=== PATIENT | male | born 1945 | race Caucasian/White ===

== ENCOUNTER → 2019-03-02 10:41 | Outpatient (CLI) | payer MEDICARE, SELFPAY ==
[2018-01-25 14:08] VITALS: BMI 33.0
[2019-03-02 12:39] LABS: Hematocrit 40.8 % (40-54); Hemoglobin 13.5 g/dL (13.0-16.5); Mean Corp Hgb Conc 33.1 g/dL (32-36); Mean Corpuscular Hgb 30.3 pg (27.0-32.0); Mean Corpuscular Volume 91.5 fL (80-94); Platelet Count 183 K/mm3 (150-450); RBC Distribution Width CV 12.6 % (11.6-14.6); RBC Distribution Width SD 41.1 fl (35.1-43.9); Red Blood Count 4.46 M/mm3 (4.6-6.2); White Blood Count 5.8 K/mm3 (4.4-11.0)
[2019-03-02 12:59] LABS: Microalbumin,Random Urine 97.9 mg/L (NO RANGE EST.); Microalbumin:Creatinine Ratio 74.7 mg/g CRE (<30 mg/g CRE)
[2019-03-02 13:22] LABS: ALB/GLOB Ratio 1.2 RATIO (0.9-2.4); AST(SGOT) 33 U/L (15-37); Alanine Aminotransfer ALT/SGPT 56 U/L (16-61); Alkaline Phosphatase 61 U/L (45-117); Anion Gap 7 (5-15); BUN 25 mg/dL (7-18); BUN/Creat Ratio 27.4 RATIO (10-20); Chloride 107 mmol/L (98-107); Cholesterol 241 mg/dL (200); Creatinine, Serum 0.91 mg/dL (0.70-1.30); EST Glomerular Filtration Rate 86 mL/min (>60); Est Glom Filt Rate - Afr Amer 104 mL/min (>60); Ferritin 150 ng/mL (26-388); Globulin 3.4 g/dL (2.2-4.2); Glucose 187 mg/dL (74-106); High Density Lipoprotein 52 mg/dL; Iron 71 ug/dL (65-175); Iron Binding Capacity,Total 334 ug/dL (250-450); PERCENT IRON SATURATION 21.3 % (15.0-55.0); Potassium 4.5 mmol/L (3.5-5.1); Protein, Total 7.4 g/dL (6.4-8.2); Sodium Level 138 mmol/L (136-145); Triglycerides 169 mg/dL; Very Low Density Lipoprotein 34 mg/dL (5-40)
== END ==
PROVIDERS: PCP Family Medicine; Referring Provider Family Medicine; Visit Provider Family Medicine
DX: E11.9 Type 2 diabetes mellitus without complications (principal); Z83.49 Family history of other endocrine, nutritional and metabolic diseases
CPT/HCPCS: 36415; 80053; 80061; 82043; 82570; 82728; 83540; 83550; 85027

== ENCOUNTER → 2019-06-07 12:33 | Outpatient (CLI) | payer MEDICARE, SELFPAY ==
[2018-01-25 14:08] VITALS: BMI 33.0
--- NOTE | 2019-06-07 12:38 | RAD_ITS ---
STUDY: X-RAY - PELVIS AND LEFT HIP REASON FOR EXAM: Male, 74 years old. Left hip pain TECHNIQUE: 3 views of the pelvis and hip. COMPARISON: None. FINDINGS: Moderate amount of fecal material is seen in the rectosigmoid colon. Normal visualized soft tissue structures. Normal bilateral iliac wings, sacroiliac joints and visualized sacrum. Normal bilateral superior and inferior pubic rami. Normal pubic symphysis. Normal bilateral ischial tuberosities. The patient is status post bilateral hip replacement. There is good alignment. Degenerative changes in the lower lumbar spine. RAD/HIP, UNI W/ Pelvis 2-3 Views IMPRESSION: Bilateral hip replacement. There is good alignment. Degenerative changes in the lower lumbar spine. Electronically Signed: Josiah Peralta, at 13:11 EDT , Service support ,
== END ==
PROVIDERS: PCP Family Medicine; Referring Provider Family Medicine; Visit Provider Family Medicine
DX: M25.552 Pain in left hip (principal)
CPT/HCPCS: 73502

== ENCOUNTER → 2019-10-22 10:06 | Outpatient (CLI) | payer MEDICARE, SELFPAY ==
[2018-01-25 14:08] VITALS: BMI 33.0
--- NOTE | 2019-10-22 10:12 | RAD_ITS ---
STUDY: X-RAY CHEST REASON FOR EXAM: Male, 74 years old. CHRONIC COUGH TECHNIQUE: Frontal and lateral views COMPARISON: None. FINDINGS: The lungs are not fully expanded. There is no demonstrated pleural abnormality. Normal size heart. Normal mediastinum and siddhartha. Normal visualized pulmonary arteries. Normal visualized aortic arch and descending thoracic aorta. Degenerative changes of the thoracic spine. Normal visualized ribs, clavicles, and shoulders. There is no demonstrated abnormality of the visualized soft tissue structures of the upper abdomen. RAD/Chest PA and Lateral IMPRESSION: Normal x-ray examination of the chest. Electronically Signed: Pa Brennan DO at 23:00 EDT Tel [phone], Service support ,
[2019-10-22 12:13] LABS: Absolute Lymphocyte Count 1.42 X10^3/uL (0.83-4.51); Absolute Neutrophil Count 2.8 X10^3/uL (2.0-7.7); Basophil# 0.06 X10^3/uL; Basophil% 1.1 % (0-1); Eosinophil# 0.29 X10^3/uL; Eosinophils% 5.4 % (0-5); Hematocrit 42.7 % (40-54); Hemoglobin 14.5 g/dL (13.0-16.5); Lymphocyte # 1.42 X10^3/ul (4.0); Lymphocyte % 26.4 % (19-41); Mean Corpuscular Hgb 31.9 pg (27.0-32.0); Mean Corpuscular Volume 94.1 fL (80-94); Mean Platelet Vol. 10.8 fl (6.2-12.0); Monocyte# 0.76 X10^3/uL; Monocyte% 14.1 % (0-10); NRBC Flagged by Analyzer 0 % (0-5); Neutrophil # 2.83 X10^3/uL (2.7-7.7); Neutrophil % 52.6 % (47-70); Platelet Count 170 K/mm3 (150-450); RBC Distribution Width CV 12.4 % (11.6-14.6); RBC Distribution Width SD 42.9 fl (35.1-43.9); Red Blood Count 4.54 M/mm3 (4.6-6.2); White Blood Count 5.4 K/mm3 (4.4-11.0)
[2019-10-22 12:44] LABS: Hemoglobin A1c 7.8 % (3.8-5.6)
[2019-10-22 12:55] LABS: ALB/GLOB Ratio 1.1 RATIO (0.9-2.4); AST(SGOT) 32 U/L (15-37); Alanine Aminotransfer ALT/SGPT 48 U/L (16-61); Alkaline Phosphatase 63 U/L (45-117); Anion Gap 7 (5-15); BUN 24 mg/dL (7-18); BUN/Creat Ratio 23.1 RATIO (10-20); Chloride 107 mmol/L (98-107); Cholesterol 263 mg/dL (200); Creatinine, Serum 1.04 mg/dL (0.70-1.30); EST Glomerular Filtration Rate 74 mL/min (>60); Est Glom Filt Rate - Afr Amer 89 mL/min (>60); Globulin 3.8 g/dL (2.2-4.2); Glucose 178 mg/dL (74-106); High Density Lipoprotein 54 mg/dL; Potassium 4.3 mmol/L (3.5-5.1); Protein, Total 7.8 g/dL (6.4-8.2); Sodium Level 138 mmol/L (136-145); Triglycerides 219 mg/dL; Very Low Density Lipoprotein 44 mg/dL (5-40)
[2019-10-22 13:08] LABS: Microalbumin:Creatinine Ratio 118.8 mg/g CRE (<30 mg/g CRE)
== END ==
PROVIDERS: PCP Family Medicine; Referring Provider Family Medicine; Visit Provider Family Medicine
DX: R05 Cough (principal); E11.65 Type 2 diabetes mellitus with hyperglycemia
CPT/HCPCS: 36415; 71046; 80053; 80061; 82043; 82570; 83036; 85025

== ENCOUNTER → 2019-11-08 06:48 | Outpatient (CLI) | payer MEDICARE, SELFPAY ==
[2018-01-25 14:08] VITALS: BMI 33.0
--- NOTE | 2019-11-08 15:53 | PFTCOMP_ITS ---
COMPLETE PULMONARY FUNCTION TEST INTERPRETATION Brief HPI: Patient is a 74 year old male, currently under the care of Dr. Ochoa, who presents to [facility] for complete pulmonary function tests secondary to diagnosis of cough. Respiratory therapist reports good effort and reproducible results. Interpretation: Forced expiration spirometry shows no large airways obstructive ventilatory defect with an FEV1 of 117% predicted. There is no significant bronchodilator response by strict ATS criteria. Spirograms are of good quality and plateau normally. The respiratory flow volume loop shows a normal pattern. Lung volumes by body plethysmography show an elevated total lung capacity at 10.68 L, 173% predicted. FRC and RV are elevated out of proportion. Lung volume measurements are consistent with hyperinflation and air-trapping. Diffusion capacity by carbon monoxide is normal at 98% predicted. The airway resistance is normal. No previous pulmonary function tests were available for review. Impression: Grossly normal pulmonary function test except for air trapping with hyperinflation. Could consider evaluation for asthma in the right clinical scenario with a bronchoprovocation study.
== END ==
PROVIDERS: PCP Family Medicine; Referring Provider Family Medicine; Visit Provider Family Medicine
DX: R05 Cough (principal)
CPT/HCPCS: 94060; 94726; 94729

== ENCOUNTER → 2020-03-11 09:47 | Outpatient (CLI) | payer MEDICARE, SELFPAY ==
[2018-01-25 14:08] VITALS: BMI 33.0
[2020-03-11 10:01] LABS: Mucous, Urine 0 SEEN /hpf (<or=2+)
[2020-03-11 12:21] LABS: Hematocrit 44.5 % (40-54); Hemoglobin 14.9 g/dL (13.0-16.5); Mean Corp Hgb Conc 33.5 g/dL (32-36); Mean Corpuscular Hgb 30.4 pg (27.0-32.0); Mean Corpuscular Volume 90.8 fL (80-94); Mean Platelet Vol. 10.9 fl (6.2-12.0); Platelet Count 200 K/mm3 (150-450); RBC Distribution Width CV 12.3 % (11.6-14.6); RBC Distribution Width SD 40.9 fl (35.1-43.9); White Blood Count 6.3 K/mm3 (4.4-11.0)
[2020-03-11 12:34] LABS: Color, Urine Yellow (Yellow); Glucose, Dipstick Normal (Normal); Ketone-Dipstick 5 mg/dl (Negative); Leukocyte Esterase-Dipstick 25 /ul (Negative); Nitrite-Dipstick Negative (Negative); Occult Blood-Urine 250 /ul (Negative); Protein-Dipstick 30 mg/dl (Negative); Urine Bilirubin Dipstick Negative (Negative); Urine Clarity Sl. Cloudy (Clear); Urine Urobilinogen Normal (Normal)
[2020-03-11 12:40] LABS: Bacteria 1+ /hpf (None Seen); Red Blood Cells-Urine 25-50 SEEN /hpf (0-5); Squamous Epithelial Cells - UA 0-5 SEEN /hpf (0-5); White Blood Cells 0-5 SEEN /hpf (0-5)
[2020-03-11 12:49] LABS: ALB/GLOB Ratio 1.1 RATIO (0.9-2.4); AST(SGOT) 116 U/L (15-37); Alanine Aminotransfer ALT/SGPT 70 U/L (16-61); Albumin, Serum 3.9 g/dL (3.2-5.0); Alkaline Phosphatase 64 U/L (45-117); Anion Gap 7 (5-15); BUN 19 mg/dL (7-18); BUN/Creat Ratio 22.2 RATIO (10-20); Calcium,Total 8.9 mg/dL (8.5-10.1); Chloride 107 mmol/L (98-107); Creatinine, Serum 0.86 mg/dL (0.70-1.30); EST Glomerular Filtration Rate 92 mL/min (>60); Est Glom Filt Rate - Afr Amer 112 mL/min (>60); Globulin 3.6 g/dL (2.2-4.2); Glucose 146 mg/dL (74-106); Potassium 4.1 mmol/L (3.5-5.1); Protein, Total 7.5 g/dL (6.4-8.2); Sodium Level 137 mmol/L (136-145)
== END ==
PROVIDERS: PCP Family Medicine; Referring Provider Family Medicine; Visit Provider Family Medicine
DX: R31.9 Hematuria, unspecified (principal)
CPT/HCPCS: 36415; 80053; 81001; 84153; 85027; 87086

== ENCOUNTER → 2020-03-25 | Outpatient (CLI) | payer MEDICARE, SELFPAY ==
[2018-01-25 14:08] VITALS: BMI 33.0
--- NOTE | 2020-03-25 11:30 | PROSB_PTH ---
PATIENT: TALON NUNES LOC: [facility] U#:[id number] AGE/SX: 75/M ROOM: RE03/25/[address]: Dr. Damián Dobbins MD : 1945 BED: DIS: 03/25/2020 SPEC #: [id number] RECD: 03/25/20 12:52 STATUS: ZOHRA RESun #: [id number] CHAZ: 03/25/20 11:[address]: Damián Dobbins DEPT: SURGICAL PATHOLOGY RECD BY: Sana Horn ENTERED: 03/25/20 12:53 SP TYPE: PROST BX OTHR DR: Dr. Manpreet Ochoa MD Tissues: Prostate, NOS Procedures: Surgery Specimen Level IV HEADER OPERATION: Prostate biopsy PRE-OP DIAGNOSIS: R97.20, N40.3 TISSUE SUBMITTED: Prostate biopsy MICROSCOPIC DIAGNOSIS Prostate, core biopsy: Adenocarcinoma. [place] grade: 10 (5+5) Cores involved: 2 out of 2 cores Tissue involved: 80% Greatest tumor length: 6 mm Perineural invasion: Present AM:antione 03/26/2020 COMMENT Case has been reviewed in consultation with Dr. Brown who concurs with the above diagnosis. IDC:SJ MICROSCOPIC DESCRIPTION Slides are reviewed. GROSS DESCRIPTION Received in fixative is one container labeled with the patient's name and designated prostate. The specimen consists of two elongated fragments of light cummings-white soft tissue each measuring 1.5 cm in length and 0.1 cm in diameter. The specimen is totally submitted in one cassette. / AM:antione 03/25/20 TC:0 CPT: 21837
== END | disposition home or self-care (01) ==
LOC: LABSPEC 12:27
PROVIDERS: PCP Family Medicine; Referring Provider Urology; Visit Provider Urology
DX: C61 Malignant neoplasm of prostate (principal); N40.3 Nodular prostate with lower urinary tract symptoms
CPT/HCPCS: 88305

== ENCOUNTER → 2020-04-04 16:30 | Outpatient (CLI) | payer MEDICARE, SELFPAY ==
[2018-01-25 14:08] VITALS: BMI 33.0
--- NOTE | 2020-04-04 16:55 | CT_ITS ---
STUDY: CT ABDOMEN AND PELVIS WITH CONTRAST REASON FOR EXAM: Male, 75 years old. Prostate cancer evaluation/staging RADIATION DOSAGE (If Supplied By Facility): CTDIvol = ( 22.93 ) mGy, DLP = ( 1692.41 ) mGycm TECHNIQUE: CT images were obtained from the dome of the diaphragm to the symphysis pubis without oral contrast. IV 100mL Isovue-300 was administered. Sagittal and coronal images were reconstructed. Individualized dose optimization techniques were used for this CT. COMPARISON: None. FINDINGS: There are multiple bilateral subcentimeter round solid pulmonary metastases. There are no pleural effusions. Coronary arteries are severely diseased. Left ventricle is mildly dilated. Abdominal solid organs are normal. Gallbladder is normal and there is no biliary dilation. There is no hydronephrosis or urinary calculi. There is no intestinal obstruction. There is sigmoid diverticulosis without diverticulitis. Lower pelvis is suboptimally visualized due to metallic artifact from bilateral hip replacements. Bladder is probably normal. There is no abdominal or retroperitoneal lymphadenopathy. There are no skeletal blastic lesions. There is multilevel spinal degeneration with severe thecal sac stenosis at L2-L3, moderate at L3-L4 L4-L5. Lateral recesses and foramina are stenotic at multiple levels. CT/Abdomen/Pelvis W IV Cont ONLY IMPRESSION: 1. Multiple pulmonary metastases. Refer to complete CT chest for more definitive evaluation. 2. No abdominal disseminated malignancy. 3. No abdominal lymphadenopathy. 4. No osseous blastic metastases. 5. Severe coronary artery disease. Electronically Signed: Nandini Charles MD at 17:21 EST Tel , Service support ,
== END ==
PROVIDERS: PCP Family Medicine; Referring Provider Urology; Visit Provider Urology
DX: C61 Malignant neoplasm of prostate (principal)
CPT/HCPCS: 74177; Q9967; A4216

== ENCOUNTER → 2020-04-07 08:55 | Outpatient (CLI) | payer MEDICARE, SELFPAY ==
[2018-01-25 14:08] VITALS: BMI 33.0
--- NOTE | 2020-04-07 09:00 | NM_ITS ---
CLINICAL: 75-year-old male with reported history of carcinoma of the prostate. WHOLE BODY 99m Tc MDP RADIONUCLIDE BONE SCINTIGRAPHY COMPARISON: CT of the abdomen-pelvis report 04/04/2020 FINDINGS: Following the intravenous administration of 26.8 mCi of 99m Tc MDP, whole body bone images reveal: 1. Increased radiopharmaceutical concentration is defined in the right temporomandibular joint, glenohumeral compartments of both shoulders, sternoclavicular compartment of the right shoulder, mid cervical spine posteriorly on the left, fifth thoracic vertebra posteriorly on the right, second-fifth lumbar vertebra, bilateral posterior sacrum, wrists bilaterally, the right hand, bilateral knees. 2. The remaining skeletal structures are scintigraphically unremarkable with normal-appearing renal images and urinary bladder activity identified. An increase in tracer distribution appears evident in the bilateral mandible and maxilla and interorbital aspect of the calvarium most consistent with periostitis. Bilateral hip arthroplasties appear scintigraphically unremarkable. NM/Bone Scan Whole Body IMPRESSION: 1. The increase in radiopharmaceutical concentration identified in the right and left shoulder articulations, bilateral wrists, right hand, cervical, thoracic and lumbar spine, bilateral knees, the sacrum is most consistent with degenerative arthritis. 2. There is no definitive typical scintigraphic evidence of diffuse axial skeletal metastatic disease on the current examination. Electronically Signed: Yimi Rodriguez DO at 22:03 EST Tel , Service support ,
== END ==
PROVIDERS: PCP Family Medicine; Referring Provider Urology; Visit Provider Urology
DX: C61 Malignant neoplasm of prostate (principal)
CPT/HCPCS: 78306

== ENCOUNTER → 2020-04-15 07:57 | Outpatient (CLI) | payer MEDICARE, SELFPAY ==
[2018-01-25 14:08] VITALS: BMI 33.0
--- NOTE | 2020-04-15 07:58 | CT_ITS ---
STUDY: CT CHEST WITHOUT CONTRAST REASON FOR EXAM: Male, 75 years old. MALIGNANT NEOPLASM OF PROSTATE RADIATION DOSAGE (If Supplied By Facility): CTDIvol = ( 20.00 ) mGy, DLP = ( 764.64 ) mGycm TECHNIQUE: Transaxial imaging was performed without the administration of intravenous contrast material. Multiplanar coronal and sagittal images were reformatted. Individualized dose optimization techniques were used for this CT. COMPARISON: None. FINDINGS: There are numerous bilateral lung nodules scattered throughout the lung raya, largest seen within the left upper lobe near the apex and measuring 2.0 x 1.1 cm, measured on image 42, series 4. There is mild right lower lobe and minimal posterior dependent atelectasis. Otherwise lung raya are clear. There is no demonstrated pleural abnormality. Normal cardiac size with coronary artery calcifications. There are multiple enlarged lymph nodes within the mediastinum, largest seen at the aortopulmonary window and measuring 2.0 x 1.9 cm. Normal hilar regions. Normal unenhanced pulmonary arteries. There is atherosclerotic calcification of the aortic arch with tortuosity and elongation of the aortic arch and descending thoracic aorta. There are multi-level degenerative changes of the thoracic spine. There is no demonstrated abnormality of the visualized upper abdomen. CT/Chest without Contrast IMPRESSION: Multiple bilateral pulmonary nodules as described above and most compatible with metastatic disease in the context of known neoplasm. Mediastinal lymphadenopathy as described, likely metastatic in the clinical context. No pleural effusion or pneumothorax. Electronically Signed: Tiesha Musa MD at 0:53 EST , Service support ,
== END ==
PROVIDERS: PCP Family Medicine; Referring Provider Urology; Visit Provider Urology
DX: C61 Malignant neoplasm of prostate (principal)
CPT/HCPCS: 71250

== ENCOUNTER → 2020-04-30 16:22 | Outpatient (CLI) | payer MEDICARE, SELFPAY ==
[2018-01-25 14:08] VITALS: BMI 33.0
[2020-04-30 17:43] LABS: Platelet Count 186 K/mm3 (150-450)
[2020-04-30 18:10] LABS: International Normalized Ratio 1.1; Prothrombin Time (Protime)PT. 13.2 SECONDS (11.7-14.9)
[2020-04-30 18:11] LABS: Partial Thromboplast Time 27.8 Seconds (24.1-36.2)
== END ==
PROVIDERS: PCP Family Medicine; Referring Provider Urology; Visit Provider Urology
DX: Z01.812 Encounter for preprocedural laboratory examination (principal)
CPT/HCPCS: 36415; 85049; 85610; 85730

== ENCOUNTER → 2020-05-02 08:06 | Outpatient (CLI) | payer MEDICARE, SELFPAY ==
[2018-01-25 14:08] VITALS: BMI 33.0
[2020-05-02] VITALS (10 sets, daily range): BP systolic 129–165; BP diastolic 57–77; PULSE 55–62; RESP 13–20; TEMP 36.5; O2SAT 92–96; BMI 33.2
--- NOTE | 2020-05-02 | IMM_PTH ---
PATIENT: TALON NUNES LOC: CT U#:[id number] AGE/SX: 79/M ROOM: RE05/02/[address]: Dr. Damián Dobbins MD : 1945 BED: DIS: SPEC #: [id number] RECD: 05/05/20 13:50 STATUS: ZOHRA REQ #: [id number] CHAZ: 05/02/20 00:[address]: Damián Dobbins DEPT: IMMUNOHISTOCHEMISTRY RECD BY: Juli Ureña ENTERED: 05/05/20 13:52 SP TYPE: IMMUNO OTHR DR: Dr. Manpreet Ochoa MD Tissues: Lung, NOS Procedures: RCC (add) NAPSIN A (add) CK20 (add) CK5-6 (add) CK7 (add) CK8 (add) HEP PAR (add) TTF1 (add) Pankeratin (initial) P40 (add) PSAP (add) PHYSICIAN & INSTITUTION [address] [address] SPECIMEN INFORMATION: Tissue Source: Left lung mass Clinical Info: Left lung mass Specimen Number: [id number] CPT code: 09477, 35234 x10 METHODOLOGY: Deparaffinized sections of prefer/formalin-fixed tissue or PAP/DQ stained slides are incubated with monoclonal/polyclonal antibodies/oligonucleotide probes. Localization is made via biotin free immunoperoxidase method. Appropriate controls are performed and reacted as expected. Results on target cell population are indicated in the following table: RESULTS: ANTIBODY / CLONE RESULT AE1-3 (AE1/AE3/PCK26) positive CK7 (OV-TL12/30) negative CK8 (71pbxqX49) positive CK20 (KS20.8) negative TTF-1 (8G7G3/1) negative Napsin A (Rabbit Polyclonal) negative HepPar (OCh1E5) negative RCC (PN-15) negative PSAP (PASE/4LJ) positive CK5-6 (D5 & 1684) negative P40 (BC28) negative These tests were developed and their performance characteristics determined by [facility]. They may not have been cleared or approved by the U.S. Food and Drug Administration. The FDA has determined that such clearance or approval is not necessary. The above immunohistochemical/dualISH markers are ordered and reviewed by the Pathologist. INTERPRETATION: Left lung mass, CT-guided core biopsy: Metastatic adenocarcinoma consistent with prostate primary. SJ:antione 05/06/2020
--- NOTE | 2020-05-02 08:15 | CT_ITS ---
PROCEDURE: CT GUIDED CORE NEEDLE BIOPSY OF A left upper lobe LUNG LESION INDICATION: Male, 75 years old. NODULE PHYSICIAN: Dr. HOLLI Cleaning CONSENT: Written informed consent was obtained having explained the risks, benefits and alternatives in detail with the patient who accepted the risks and agreed to proceed. Laboratory review and clinical assessment was performed. CONSCIOUS SEDATION PROTOCOL: The Drugs used were: 2 mg Versed, IV., and 50 mcg Fentanyl, IV. The sedation time was: 27 minutes. Conscious sedation was started at 9:05 AM and terminated at 9:32 AM. The conscious sedation protocol was independently monitored. RADIATION DOSAGE (If Supplied By Facility): CTDIvol = ( 25 ) mGy, DLP = ( 905.95 ) mGycm Individualized dose optimization techniques were used for this CT. TECHNIQUE: The patient was placed in the supine position. A noncontrast CT was performed to localize the lesion in the left upper lobe . The skin surface was prepped and draped in a sterile fashion. 1% lidocaine was used for local anesthesia. Using CT guidance, a 20-gauge coaxial biopsy device was advanced to the periphery of the lesion. A total of 4 core specimens were obtained. The specimens were placed in a formalin solution. A post procedure CT demonstrated no adverse sequelae or pneumothorax. The patient tolerated the procedure well without adverse event. A negative biopsy does not exclude malignancy. Further imaging or clinical followup based on patient condition and degree of clinical suspicion for malignancy. Suggest rebiopsy, if biopsy results do not match with clinical scenario. CT/Biopsy/Inj or Needle Placement IMPRESSION: 1. CT directed core needle biopsy of the left upper lobe pulmonary nodule using CT image guidance with image documentation as described. Pathology results are pending. 2. Conscious Sedation protocol utilized with independent monitoring. Electronically Signed: Josiah Peralta MD at 10:44 EDT , Service support ,
[2020-05-02] MEDS: Midazolam 2 MG/2 ML Syringe IV (09:04)
[2020-05-02] MEDS: fentaNYL 100 MCG/2 ML Ampul IV (09:05)
--- NOTE | 2020-05-02 09:30 | ASPIGT_PTH ---
PATIENT: TALON NUNES LOC: CT U#:[id number] AGE/SX: 79/M ROOM: RE05/02/[address]: Dr. Damián Dobbins MD : 1945 BED: DIS: SPEC #: [id number] RECD: 05/02/20 09:50 STATUS: ZOHRA RESun #: [id number] CHAZ: 05/02/20 09:[address]: Damián Dobbins DEPT: SURGICAL PATHOLOGY RECD BY: Sana Horn ENTERED: 05/02/20 09:51 SP TYPE: ASP RAD OTHR DR: Dr. Manpreet Ochoa MD Tissues: Lung, NOS Procedures: FNA Specimen Adequacy Special Stain Group II Surgery Specimen Level IV Imprint (control) HEADER OPERATION: Left lung mass, Ct-guided core biopsy PRE-OP DIAGNOSIS: Left lung mass TISSUE SUBMITTED: Left lung mass 20-gauge core MICROSCOPIC DIAGNOSIS Left lung mass, CT-guided core biopsy: Metastatic adenocarcinoma, consistent with prostate primary. See comment. NORMAN:antione 05/05/2020 COMMENT The specimen is evaluated at the time of biopsy by Dr. Brown. Immediate Evaluation = Atypical cells suspicious for non-small cell carcinoma noted. Immunohistochemistry ([id number]) supports the above diagnosis. Molecular studies on the tumor can be performed if clinically indicated. Please notify the laboratory if they are needed. Please make reference to previous specimen ([id number]) prostate, core biopsy with diagnosis of adenocarcinoma. Case has been reviewed in consultation with Dr. Powers who concurs with the above diagnosis. IDC:AM MICROSCOPIC DESCRIPTION Slides are reviewed. GROSS DESCRIPTION Received in fixative is one container labeled with the patient's name and designated left lung CT-guided core biopsy. The specimen consists of multiple elongated fragments of cummings soft tissue that in aggregate measure 1 x 0.1 x 0.1 cm. The specimen is totally submitted in one cassette. Three touch imprints are prepared at the time of core biopsy. / NORMAN:antione 05/02/20 TC:0 CPT: 94155, 26756
--- NOTE | 2020-05-02 09:45 | RAD_ITS ---
STUDY: X-RAY CHEST REASON FOR EXAM: Male, 75 years old. POST BIOPSY -- immediately post lung biopsy TECHNIQUE: AP inspiration and expiration views. COMPARISON: Comparison is made with prior examination of 10/22/2019. FINDINGS: EKG electrodes are seen. Immediate post left lung biopsy. No evidence of pneumothorax. Left upper lobe pulmonary nodule. RAD/Chest Insp/Exp 2 View IMPRESSION: No evidence of pneumothorax on the immediate post left lung biopsy radiographs. Electronically Signed: Josiah Peralta MD at 10:46 EDT , Service support ,
--- NOTE | 2020-05-02 11:50 | RAD_ITS ---
STUDY: X-RAY CHEST REASON FOR EXAM: Male, 75 years old. 2 HRS POST BIOPSY -- 2 hours post lung biopsy TECHNIQUE: AP inspiration and expiration views. COMPARISON: Comparison is made with prior examination done earlier today. FINDINGS: No evidence of pneumothorax on the two-hour delayed post left lung biopsy radiographs. RAD/Chest Insp/Exp 2 View IMPRESSION: No evidence of pneumothorax on the two-hour delayed post left lung biopsy radiographs. Electronically Signed: Josiah Peralta MD at 12:46 EDT , Service support ,
== END ==
PROVIDERS: PCP Family Medicine; Referring Provider Urology; Visit Provider Urology
DX: C78.02 Secondary malignant neoplasm of left lung (principal)
CPT/HCPCS: 32408; 71046; 77012; 88172; 88305; 88313; 88341; 88342; 99155; 99156; J7040; A4216

== ENCOUNTER → 2020-07-23 14:17 | Outpatient (CLI) | payer MEDICARE, SELFPAY ==
[2020-05-02 08:30] VITALS: BMI 33.2
[2020-07-23 15:55] LABS: PSA,Total- Diagnostic 6.14 ng/mL (0.0-4.0)
== END ==
PROVIDERS: PCP Family Medicine; Referring Provider Urology; Visit Provider Urology
DX: C61 Malignant neoplasm of prostate (principal)
CPT/HCPCS: 36415; 84153

== ENCOUNTER → 2020-09-09 10:06 | Outpatient (CLI) | payer MEDICARE, SELFPAY ==
[2020-05-02 08:30] VITALS: BMI 33.2
[2020-09-09 12:11] LABS: ALB/GLOB Ratio 1.1 RATIO (0.9-2.4); AST(SGOT) 29 U/L (15-37); Alanine Aminotransfer ALT/SGPT 44 U/L (16-61); Alkaline Phosphatase 64 U/L (45-117); Anion Gap 6 (5-15); BUN 21 mg/dL (7-18); BUN/Creat Ratio 21.4 RATIO (10-20); Calcium,Total 9.2 mg/dL (8.5-10.1); Chloride 104 mmol/L (98-107); Cholesterol 285 mg/dL (200); Creatinine, Serum 0.98 mg/dL (0.70-1.30); EST Glomerular Filtration Rate 78 mL/min (>60); Est Glom Filt Rate - Afr Amer 95 mL/min (>60); Globulin 3.8 g/dL (2.2-4.2); Glucose 179 mg/dL (74-106); High Density Lipoprotein 68 mg/dL; Potassium 4.6 mmol/L (3.5-5.1); Protein, Total 7.8 g/dL (6.4-8.2); Sodium Level 136 mmol/L (136-145); Triglycerides 226 mg/dL; Very Low Density Lipoprotein 45 mg/dL (5-40)
[2020-09-09 13:05] LABS: Microalbumin,Random Urine 77.1 mg/L (NO RANGE EST.); Microalbumin:Creatinine Ratio 72.7 mg/g CRE (<30 mg/g CRE)
[2020-09-09 14:03] LABS: Hemoglobin A1c 8.3 % (3.8-5.6)
== END ==
PROVIDERS: PCP Family Medicine; Referring Provider Family Medicine; Visit Provider Family Medicine
DX: E11.65 Type 2 diabetes mellitus with hyperglycemia (principal)
CPT/HCPCS: 36415; 80053; 80061; 82043; 82570; 83036

== ENCOUNTER → 2020-10-23 12:58 | Outpatient (CLI) | payer MEDICARE, SELFPAY ==
--- NOTE | 2020-10-23 13:03 | RAD_ITS ---
STUDY: X-RAY CHEST REASON FOR EXAM: Male, 75 years old. Chest pain/pressure TECHNIQUE: 2 PA and lateral views of the chest. COMPARISON: 05/02/2020 FINDINGS: Stable elevation of the right hemidiaphragm The lungs are clear and expanded. There is no demonstrated pleural abnormality. Normal size heart. Normal mediastinum and siddhartha. Normal visualized pulmonary arteries. Normal visualized aortic arch and descending thoracic aorta. There are diffuse degenerative changes of the visualized thoracic spine. Normal visualized ribs, clavicles, and shoulders. There is no demonstrated abnormality of the visualized soft tissue structures of the upper abdomen. RAD/Chest PA and Lateral IMPRESSION: No acute pulmonary process, no interval change Electronically Signed: George Gallardo MD at 17:02 EDT , Service support ,
[2020-10-23 15:11] LABS: PSA,Total- Diagnostic 1.08 ng/mL (0.0-4.0)
== END ==
PROVIDERS: PCP Family Medicine; Visit Provider Nurse Practitioner Adult Health
DX: R91.8 Other nonspecific abnormal finding of lung field (principal); C61 Malignant neoplasm of prostate
CPT/HCPCS: 36415; 71046; 84153

== ENCOUNTER → 2020-12-10 12:29 | Outpatient (CLI) | payer MEDICARE, SELFPAY ==
[2020-12-10 15:37] LABS: Anion Gap 8 (5-15); BUN 26 mg/dL (7-18); Calcium,Total 9.2 mg/dL (8.5-10.1); Chloride 103 mmol/L (98-107); Cholesterol 257 mg/dL (200); EST Glomerular Filtration Rate 77 mL/min (>60); Est Glom Filt Rate - Afr Amer 93 mL/min (>60); Glucose 199 mg/dL (74-106); High Density Lipoprotein 59 mg/dL; Potassium 4.6 mmol/L (3.5-5.1); Sodium Level 136 mmol/L (136-145); Triglycerides 264 mg/dL; Very Low Density Lipoprotein 53 mg/dL (5-40)
[2020-12-10 16:04] LABS: Hemoglobin A1c 9.4 % (3.8-5.6)
== END ==
PROVIDERS: PCP Nurse Practitioner Family; Referring Provider Nurse Practitioner Family; Visit Provider Nurse Practitioner Family
DX: E11.65 Type 2 diabetes mellitus with hyperglycemia (principal); E78.5 Hyperlipidemia, unspecified
CPT/HCPCS: 36415; 80048; 80061; 83036

== ENCOUNTER → 2021-02-03 09:55 | Outpatient (CLI) | payer MEDICARE, SELFPAY ==
[2021-02-03 11:09] LABS: PSA,Total- Diagnostic 1.54 ng/mL (0.0-4.0)
== END ==
PROVIDERS: PCP Nurse Practitioner Family; Referring Provider Urology; Visit Provider Urology
DX: C61 Malignant neoplasm of prostate (principal)
CPT/HCPCS: 36415; 84153

== ENCOUNTER 2021-03-11 12:13 | Outpatient (CLI) | payer MEDICARE, SELFPAY ==
--- NOTE | 2021-03-11 12:16 | RAD_ITS ---
STUDY: XR Chest 2 Views 03/11/2021 12:23 PM REASON FOR EXAM: Male, 76 years old. CHEST PAIN SHORTNESS OF BREATH COMPARISON: 10/23/2020 TECHNIQUE: XR Chest 2 Views FINDINGS: There is no demonstrated pleural abnormality. Normal heart size. Normal mediastinum. Normal siddhartha. Prominent appearing increased interstitial lung markings. Normal visualized pulmonary arteries. There is atherosclerotic calcification of the aortic arch with tortuosity. There are diffuse degenerative changes of the visualized thoracic spine. There is degenerative osteoarthritis of the bilateral shoulders. There is no demonstrated abnormality of the visualized soft tissue structures of the upper abdomen. RAD/Chest PA and Lateral IMPRESSION: There are no acute findings. Electronically Signed: Israel Newsome MD at 19:41 EST ,
[2021-03-11 15:26] LABS: Hemoglobin 14.6 g/dL (13.0-16.5); Mean Corp Hgb Conc 35.6 g/dL (32-36); Mean Corpuscular Hgb 31.5 pg (27.0-32.0); Mean Corpuscular Volume 88.4 fL (80-94); Mean Platelet Vol. 11.1 fl (6.2-12.0); Platelet Count 249 K/mm3 (150-450); RBC Distribution Width CV 12.2 % (11.6-14.6); Red Blood Count 4.64 M/mm3 (4.6-6.2); White Blood Count 8.6 K/mm3 (4.4-11.0)
[2021-03-11 15:52] LABS: Anion Gap 10 (5-15); BUN 24 mg/dL (7-18); BUN/Creat Ratio 19.7 RATIO (10-20); Calcium,Total 9.6 mg/dL (8.5-10.1); Chloride 104 mmol/L (98-107); Creatinine, Serum 1.22 mg/dL (0.70-1.30); EST Glomerular Filtration Rate 61 mL/min (>60); Est Glom Filt Rate - Afr Amer 74 mL/min (>60); Glucose 367 mg/dL (74-106); Potassium 4.6 mmol/L (3.5-5.1); Sodium Level 134 mmol/L (136-145)
== END 2021-03-11 23:59 | disposition short-term general hospital (02) ==
LOC: MTLAB 12:15
PROVIDERS: PCP Nurse Practitioner Family; Referring Provider Family Medicine; Visit Provider Family Medicine
DX: R06.02 Shortness of breath (principal)
CPT/HCPCS: 36415; 71046; 80048; 85027

== ENCOUNTER 2021-03-24 18:28 | Outpatient (CLI) | payer MEDICARE, SELFPAY ==
--- NOTE | 2021-03-24 18:31 | CT_ITS ---
STUDY: CTA CHEST REASON FOR EXAM: Male, 76 years old. SOB HX:DIABETES,PROSTATE AND LUNG CANCER,PT HAD CHEMO RADIATION DOSAGE (If Supplied By Facility): CTDIvol = ( 19.79 ) mGy, DLP = ( 512.44 ) mGycm TECHNIQUE: The examination was performed with the intravenous administration of IV 100mL Isovue-370. Post-processing of the angiographic images was performed, with multiplanar reformation and 3D reconstruction. Individualized dose optimization techniques were used for this CT. COMPARISON: CT of the chest dated April 15, 2020. Chest x-ray dated March 11, 2021 FINDINGS: Previously seen diffuse nodules throughout both lungs have resolved/are no longer present. No visualized consolidation or pulmonary edema or pleural effusion on the current study. There is limited enhancement of the main pulmonary artery and right and left pulmonary arteries. Linear nonocclusive thrombus is present at the origin of the peripheral branch of the right pulmonary artery supplying the superior segment of the right lower lobe referred image 118/234 through 121/234 series 2. No additional pulmonary emboli are visualized. There is atherosclerotic tortuosity of the aortic arch and descending thoracic aorta. There is no demonstrated aortic dissection. Normal heart size and pericardium. There are calcifications of the coronary arteries. Normal mediastinum. Normal hilar regions. Normal visualized trachea and bronchi. The lungs are well expanded. Normal pulmonary parenchyma. Normal pleura. Normal chest wall structures. There are degenerative changes of thoracic spine. Normal visualized upper abdomen. CT/CTA Chest W/WO Contrast IMPRESSION: 1. Linear nonocclusive thrombus is present at the origin of the peripheral branch of the right pulmonary artery supplying the superior segment of the right lower lobe referred image 118/234 series 2. No additional pulmonary emboli are visualized. 2. Previously seen diffuse nodules throughout both lungs have resolved/are no longer present. No visualized consolidation or pulmonary edema or pleural effusion on the current study. N.B. : The above Results were Read Back by Nick Sanders MD to Dr. Lambert Hu MD, and understanding confirmed on 03/24/2021 20:13:01 (ET). Electronically Signed: Nick Sanders MD at 20:14 EST ,
== END 2021-03-24 23:59 | disposition home or self-care (01) ==
LOC: CT 18:30
PROVIDERS: PCP Nurse Practitioner Family; Visit Provider Nurse Practitioner Family
DX: R06.02 Shortness of breath (principal)
CPT/HCPCS: 71275; Q9967

== ENCOUNTER 2021-05-20 15:28 | Outpatient (CLI) | payer MEDICARE, SELFPAY | END 2021-05-20 23:59 | disposition home or self-care (01) | LOC: LAB 15:35 | PROVIDERS: PCP Nurse Practitioner Family; Visit Provider Registered Nurse | DX: R97.20 Elevated prostate specific antigen [PSA] (principal) | CPT/HCPCS: 36415; 84153 ==

== ENCOUNTER → 2021-06-12 | Outpatient (CLI) | payer MEDICARE, SELFPAY ==
--- NOTE | 2021-06-12 13:50 | STEWCON_ITS ---
Reason For Study: Post COVID-19 Stress Results Protocol: Rupesh Protocol WITH DEFINITY Maximum Predicted HR: 142 bpm Target HR: 121 bpm % Maximum Predicted HR: 106 % DurationHeart Rate Stage (mm:ss) (bpm) BP Comment Baseline 77 142/78No Chest Pain; 4 ML Diluted Definity Rupesh Protocol Stage I 2:15 150 150/72Mild Chest Pressure; Severe Dyspnea Recovery 68 138/72No Chest Pain; No Dyspnea Stress Duration: 2:15 mm:ss Maximum Stress HR: 150 bpm METS: 4 Baseline Echocardiogram Findings Stress Echo Wall motion Data Resting WM Intermediate WM Stress WM ECHO/Stress Test Echo W/Contrast Interpretation Summary Exercise stress echocardiogram. 76-year-old man with a history of shortness of breath status post COVID-19. Res ting EKG demonstrates normal sinus rhythm with a rate of 77 bpm normal intervals are noted resting bl ood pressure is 142/78 mmHg. The patient exercised according to regular Rupesh protocol for tota l duration of 2 minutes and 15 seconds. The maximum heart rate was 150 bpm which was 105% of ma x impact at heart rate the maximum workload was 4.6 metabolic equivalents. At rest there were no ST or T wave changes noted suggest ischemia at peak exercise nonspecific ST changes were noted with did not meet the criteria for ischemia. Occasional premature ventricular complex was present. Mi ld chest pressure was noted with dyspnea. The peak blood pressure was 152/80 mmHg. Stress echocardiogram. The resting echocardiographic images demonstrated reduce d left ventricular systolic function estimated at 40%. There is severe hypokinesis of the apex not ed. Mild global hypokinesis is present. At peak exercise there is mild improvement noted. In th e apical wall motion abnormality. The above does not suggest ischemia but a very low workload may af fect sensitivity for detection of ischemia. Conclusion: Suboptimal stress echocardiogram with resting wall motion abnormality involving the apex and inconclusive stress echocardiographic imaging. Chest pain noted suggestive of angina or anginal equivalent. Ordering Physician: Brooklynn Alanis Referring Physician: Brooklynn Alanis Performed By: Phil Bauer RCS
== END | disposition home or self-care (01) ==
LOC: CVS 13:47
PROVIDERS: PCP Nurse Practitioner Family; Referring Provider Nurse Practitioner Family; Visit Provider Nurse Practitioner Family
DX: R07.9 Chest pain, unspecified (principal); U09.9 Post COVID-19 condition, unspecified
CPT/HCPCS: 93017; 93350; Q9957; A4216; C8928

== ENCOUNTER → 2021-08-27 | Outpatient (CLI) | payer MEDICARE, SELFPAY ==
[2021-08-27 11:32] LABS: PSA,Total- Diagnostic 1.42 ng/mL (0.0-4.0)
== END | disposition home or self-care (01) ==
LOC: LAB 10:40
PROVIDERS: PCP Nurse Practitioner Family; Referring Provider Urology; Visit Provider Urology
DX: C61 Malignant neoplasm of prostate (principal)
CPT/HCPCS: 36415; 84153

== ENCOUNTER → 2021-09-07 | Outpatient (CLI) | payer MEDICARE, SELFPAY ==
[2021-09-07 12:17] LABS: Absolute Lymphocyte Count 1.45 X10^3/uL (0.83-4.51); Absolute Neutrophil Count 3.6 X10^3/uL (2.0-7.7); Basophil# 0.05 X10^3/uL; Basophil% 0.8 % (0-1); Eosinophil# 0.12 X10^3/uL; Hematocrit 37.7 % (40-54); Lymphocyte # 1.45 X10^3/ul (0.83-4.51); Lymphocyte % 24.5 % (19-41); Mean Corp Hgb Conc 34.5 g/dL (32-36); Mean Corpuscular Hgb 31.6 pg (27.0-32.0); Mean Corpuscular Volume 91.7 fL (80-94); Mean Platelet Vol. 11.4 fl (6.2-12.0); Monocyte# 0.64 X10^3/uL; Monocyte% 10.8 % (0-10); NRBC Flagged by Analyzer 0 % (0-5); Neutrophil # 3.61 X10^3/uL (2.7-7.7); Neutrophil % 61.2 % (47-70); Platelet Count 184 K/mm3 (150-450); RBC Distribution Width CV 12.7 % (11.6-14.6); RBC Distribution Width SD 42.4 fl (35.1-43.9); Red Blood Count 4.11 M/mm3 (4.6-6.2); White Blood Count 5.9 K/mm3 (4.4-11.0)
[2021-09-07 12:37] LABS: AST(SGOT) 35 U/L (15-37); Alanine Aminotransfer ALT/SGPT 50 U/L (16-61); Albumin, Serum 3.9 g/dL (3.2-5.0); Alkaline Phosphatase 65 U/L (45-117); Anion Gap 6 (5-15); BUN 31 mg/dL (7-18); BUN/Creat Ratio 29.2 RATIO (10-20); Calcium,Total 9.5 mg/dL (8.5-10.1); Chloride 110 mmol/L (98-107); Creatinine, Serum 1.06 mg/dL (0.70-1.30); EST Glomerular Filtration Rate 72 mL/min (>60); Est Glom Filt Rate - Afr Amer 87 mL/min (>60); Globulin 3.9 g/dL (2.2-4.2); Glucose 183 mg/dL (74-106); Potassium 4.9 mmol/L (3.5-5.1); Protein, Total 7.8 g/dL (6.4-8.2); Sodium Level 138 mmol/L (136-145); Thyroid Stim Hormone (TSH) 1.69 uIU/mL (0.358-3.74)
[2021-09-07 13:21] LABS: Vitamin B12 553 pg/mL (211-911)
== END | disposition home or self-care (01) ==
LOC: MFPLAB 10:24
PROVIDERS: PCP Nurse Practitioner Family; Visit Provider Family Medicine
DX: R53.83 Other fatigue (principal); E11.9 Type 2 diabetes mellitus without complications
CPT/HCPCS: 36415; 80053; 82607; 84443; 85025

== ENCOUNTER → 2021-10-07 | Outpatient (CLI) | payer MEDICARE, SELFPAY ==
--- NOTE | 2021-10-07 07:21 | ECHOD_ITS ---
Reason For Study: DYSPNEA Procedure This was a 2D Doppler, Color Flow transthoracic echocardiogram. The study was technically difficult. Contrast injection was performed. Exam performed in department. Left Ventricle Based upon the 2D echocardiographic and contrast enhanced images obtained there appears to be grossly normal left ventricular size, wall motion, and systolic function. The estimated ejection fraction is 55 %. Diastolic function is indeterminate. Right Ventricle Normal RV size. Normal systolic function. Atria The left atrium is mildly enlarged. Normal right atrium. No doppler evidence for ASD. Mitral Valve There is moderate mitral annular calcification. Extension of the mitral annular calcification onto the base of the posterior mitral valve leaflet. Mild focal mitral valve calcification of the anterior leaflet. The mitral valve chordae are thickened and/or calcified. Trivial mitral valve insufficiency. Tricuspid Valve Normal tricuspid valve. Trivial tricuspid valve insufficiency. Unable to estimate RV systolic pressure/pulmonary artery pressure due to technically difficult study. Aortic Valve Trisinus/trileaflet aortic valve. Moderate diffuse aortic valve calcification. Aortic sclerosis, no stenosis. Trivial aortic valve insufficiency. Pulmonic Valve The pulmonic valve is not well visualized. Trivial pulmonic valve insufficiency. Great Vessels Normal sized aortic root. Calcified aortic root. Pericardium/Pleural No pericardial effusion. Medication 22 gauge I.V. with prn adaptor inserted into left arm. Diluted definity 1.5ml given slow IV push to enhance endocardial definition. MMode/2D Measurements & Calculations RVDd: 3.0 cm LVOT diam: 2.1 cm Ao root diam: 3.6 cm LVOT area: 3.6 cm2 LAV(MOD-sp2): 53.5 ml LA dimension(2D): 4.7 cm Time Measurements MV dec time: 0.35 sec Doppler Measurements & Calculations MV E max jose luis: 79.8 cm/sec Lat Peak E' Jose Luis: 6.0 cm/sec Med Peak E' Jose Luis: 5.6 cm/sec MV A max jose luis: 134.6 cm/sec E/E' lat: 13.2 E/E' med: 14.3 MV E/A: 0.59 MV V2 max: 135.5 cm/sec MV dec slope: 257.5 cm/sec2 Ao V2 max: 138.7 cm/sec MV max P.4 mmHg Ao max P.7 mmHg MV V2 mean: 68.2 cm/sec Ao V2 mean: 94.2 cm/sec MV mean P.2 mmHg Ao mean P.1 mmHg MV V2 VTI: 39.4 cm Ao V2 VTI: 32.0 cm MVA(VTI): 2.1 cm2 RIAZ(I,D): 2.5 cm2 RIAZ(V,D): 2.6 cm2 LV V1 max: 99.8 cm/sec SV(LVOT): 81.1 ml LV V1 max P.0 mmHg LV V1 mean P.2 mmHg LV V1 mean: 70.0 cm/sec LV V1 VTI: 22.8 cm ECHO/Echo Complete W/ Contrast Interpretation Summary The study was technically difficult. Contrast injection was performed. Based upon the 2D echocardiographic and contrast enhanced images obtained there appears to be grossly normal left ventricular size, wall motion, and systolic function. The estimated ejection fraction is 55 %. The left atrium is mildly enlarged. There is moderate mitral annular calcification. Extension of the mitral annular calcification onto the base of the posterior mi tral valve leaflet. Mild focal mitral valve calcification of the anterior leaflet. The mitral valve chordae are thickened and/or calcified. Trivial mitral valve insufficiency. Trivial tricuspid valve insufficiency. Aortic sclerosis, no stenosis. Trivial aortic valve insufficiency. Trivial pulmonic valve insufficiency. Calcified aortic root. Unable to estimate RV systolic pressure/pulmonary artery pressure due to techni patrick difficult study. Diastolic function is indeterminate. Ordering Physician: Benito Meyer Referring Physician: Benito Meyer Performed By: Tania Ramirez RCS
--- NOTE | 2021-10-07 07:21 | CT_ITS ---
STUDY: CTA CHEST REASON FOR EXAM: Male, 76 years old. pulmonary embolism RADIATION DOSAGE (If Supplied By Facility): CTDIvol = ( 12.66 ) mGy, DLP = ( 582.65 ) mGycm TECHNIQUE: The examination was performed with the intravenous administration of IV 100mL Isovue-370. Post-processing of the angiographic images was performed, with multiplanar reformation and 3D reconstruction. Individualized dose optimization techniques were used for this CT. COMPARISON: 03/24/2021 FINDINGS: Normal enhancement of the main pulmonary artery and right and left pulmonary arteries. Normal enhancement of the bilateral peripheral pulmonary arteries. There is no demonstrated pulmonary embolism. Normal thoracic aorta and visualized great vessels. There is no demonstrated aortic dissection. Normal heart and pericardium. There are calcifications of the coronary arteries. Normal mediastinum. Normal hilar regions. Normal visualized trachea and bronchi. The lungs are well expanded. Normal pulmonary parenchyma. Normal pleura. Normal chest wall structures. Normal osseous structures. Normal visualized upper abdomen. CT/CTA Chest W/WO Contrast IMPRESSION: Normal CTA chest examination, without a demonstrated pulmonary embolism or arterial dissection. Electronically Signed: Yimi Ellis MD at 8:48 EDT ,
[2021-10-07 09:55] LABS: Hemoglobin 13.6 g/dL (13.0-16.5); Mean Corp Hgb Conc 33.2 g/dL (32-36); Mean Corpuscular Hgb 30.9 pg (27.0-32.0); Mean Corpuscular Volume 93.2 fL (80-94); Mean Platelet Vol. 10.5 fl (6.2-12.0); Platelet Count 217 K/mm3 (150-450); RBC Distribution Width CV 13.2 % (11.6-14.6); RBC Distribution Width SD 45.4 fl (35.1-43.9); White Blood Count 5.9 K/mm3 (4.4-11.0)
[2021-10-07 10:04] LABS: International Normalized Ratio 1.1; Prothrombin Time (Protime)PT. 14.3 SECONDS (11.7-14.9)
[2021-10-07 10:05] LABS: Partial Thromboplast Time 32.2 Seconds (24.1-36.2)
[2021-10-07 10:31] LABS: AST(SGOT) 38 U/L (15-37); Alanine Aminotransfer ALT/SGPT 47 U/L (16-61); Alkaline Phosphatase 66 U/L (45-117); Anion Gap 8 (5-15); BUN 41 mg/dL (7-18); BUN/Creat Ratio 37.3 RATIO (10-20); Bilirubin, Direct 0.16 mg/dL (0.00-0.30); Calcium,Total 9.8 mg/dL (8.5-10.1); Chloride 105 mmol/L (98-107); Cholesterol 241 mg/dL (200); EST Glomerular Filtration Rate 69 mL/min (>60); Est Glom Filt Rate - Afr Amer 83 mL/min (>60); Glucose 127 mg/dL (74-106); High Density Lipoprotein 68 mg/dL; Potassium 4.8 mmol/L (3.5-5.1); Sodium Level 137 mmol/L (136-145); Triglycerides 169 mg/dL; Very Low Density Lipoprotein 34 mg/dL (5-40)
== END | disposition home or self-care (01) ==
PROVIDERS: PCP Nurse Practitioner Family; Referring Provider Internal Medicine Cardiovascular Disease; Visit Provider Internal Medicine Cardiovascular Disease
DX: I26.99 Other pulmonary embolism without acute cor pulmonale (principal); I73.9 Peripheral vascular disease, unspecified; R94.39 Abnormal result of other cardiovascular function study; R06.02 Shortness of breath; R07.9 Chest pain, unspecified; E78.2 Mixed hyperlipidemia
CPT/HCPCS: 36415; 71275; 80048; 80061; 80076; 85027; 85610; 85730; 93306; Q9957; Q9967; A4216; C8929

== ENCOUNTER → 2021-10-29 | Outpatient (CLI) | payer MEDICARE, SELFPAY ==
--- NOTE | 2021-10-29 13:31 | ART_ITS ---
Reason For Study: Claudication Procedure A bilateral lower extremity continuous wave Doppler with analog waveform analysis,segmental pressures,and ankle brachial indexes without exercise. Left Segmental Pressures Left brachial= 139mmHg. Left posterior tibial artery = 97mmHg. Left dorsalis pedis artery = 153mmHg. Left digit = 86 mmHg. The left dorsalis pedis waveforms are biphasic. The left posterior tibial artery waveforms are biphasic. Right Segmental Pressures Right brachial= 147mmHg. Right posterior tibial artery = 229mmHg. Right dorsalis pedis artery = 125mmHg. Right digit = 102 mmHg. The right dorsalis pedis waveforms are biphasic. The right posterior tibial artery waveforms are biphasic. Indices The right ankle brachial index by the dorsalis pedis is 0.85. The right ankle brachial index by the posterior tibial artery is 1.56. The right digital-brachial index is 0.69. The left ankle brachial index by the dorsalis pedis is 1.04. The left ankle brachial index by the posterior tibial artery is 0.66. The left digital-brachial index is 0.59. VL/Lower Ext Art Exam w/o Exercis Interpretation Summary Right ATUL 1.56, artificially elevated. Doppler/PVR waveforms of the right leg n ormal at rest. TBI diminished, pedal/digit disease vs spasm Left ATUL 1.04, normal. Doppler/PVR waveforms of the left leg normal at rest. TB I and digit waveform diminished, pedal/digit disease vs spasm Ordering Physician: Benito Meyer Referring Physician: Isela King Performed By: Gabriela Holly RVT
== END | disposition home or self-care (01) ==
LOC: CVS 13:30
PROVIDERS: PCP Family Medicine; Visit Provider Internal Medicine Cardiovascular Disease
DX: I73.9 Peripheral vascular disease, unspecified (principal)
CPT/HCPCS: 93923

== ENCOUNTER → 2021-11-26 | Outpatient (CLI) | payer MEDICARE, SELFPAY ==
[2021-11-26 10:25] LABS: AST(SGOT) 31 U/L (15-37); Alanine Aminotransfer ALT/SGPT 35 U/L (16-61); Alkaline Phosphatase 77 U/L (45-117); Bilirubin, Direct 0.17 mg/dL (0.00-0.30); Cholesterol 182 mg/dL (200); Globulin 3.8 g/dL (2.2-4.2); High Density Lipoprotein 89 mg/dL; Protein, Total 7.8 g/dL (6.4-8.2); Triglycerides 133 mg/dL; Very Low Density Lipoprotein 27 mg/dL (5-40)
[2021-11-26 10:32] LABS: Anion Gap 8 (5-15); BUN 29 mg/dL (7-18); BUN/Creat Ratio 25.9 RATIO (10-20); Calcium,Total 9.8 mg/dL (8.5-10.1); Chloride 108 mmol/L (98-107); Creatinine, Serum 1.12 mg/dL (0.70-1.30); EST Glomerular Filtration Rate 67 mL/min (>60); Est Glom Filt Rate - Afr Amer 81 mL/min (>60); Glucose 167 mg/dL (74-106); PSA,Total- Diagnostic 0.56 ng/mL (0.0-4.0); Potassium 4.8 mmol/L (3.5-5.1); Sodium Level 142 mmol/L (136-145)
== END | disposition home or self-care (01) ==
LOC: LAB 09:24
PROVIDERS: Internal Medicine Cardiovascular Disease; Nurse Practitioner Family; PCP Family Medicine; Referring Provider Urology; Visit Provider Urology
DX: C61 Malignant neoplasm of prostate (principal); E11.65 Type 2 diabetes mellitus with hyperglycemia; E78.2 Mixed hyperlipidemia
CPT/HCPCS: 36415; 80048; 80061; 80076; 84153

== ENCOUNTER → 2022-02-26 | Outpatient (CLI) | payer MEDICARE, SELFPAY | END | disposition home or self-care (01) | LOC: LAB 10:57 | PROVIDERS: PCP Family Medicine; Referring Provider Registered Nurse; Visit Provider Registered Nurse | DX: C61 Malignant neoplasm of prostate (principal) | CPT/HCPCS: 36415; 84153 ==

== ENCOUNTER → 2022-04-27 | Outpatient (CLI) | payer MEDICARE, SELFPAY ==
--- NOTE | 2022-04-27 07:34 | CT_ITS ---
INDICATION: PROSTATE CA, lung nodules EXAMINATION: CT CHEST WITHOUT CONTRAST - CT Chest W/O Contrast Injection TECHNIQUE: Helically acquired images were obtained of the chest. A radiation dose optimization technique was used for this scan. IV Contrast dosage and agent: None. COMPARISON: None. FINDINGS: LUNGS, PLEURA AND LARGE AIRWAYS: Mild fibrosis anterior segment left upper lobe series 4 image 30 measuring 5 x 2 mm stable. Mild fibrosis posterior basilar segment right lower lobe. No evidence of pulmonary nodule. THYROID: No thyroid lesions. HEART AND PERICARDIUM: Heart size is normal. No pericardial effusion. CORONARY ARTERIES: Coronary artery calcification involving the LAD, left circumflex and right coronary arteries. VESSELS: Thoracic aorta is not dilated. MEDIASTINUM AND LUCIO: No mediastinal or hilar adenopathy. Esophagus is unremarkable. No hiatal hernia. UPPER ABDOMEN: No acute pathology. BONES: Severe spondylitic of changes and degenerative disc disease mid and lower thoracic spine. CT/Chest without Contrast IMPRESSION: Stable findings. Mild fibrosis anterior segment left upper lobe and posterior basilar segment right lower lobe. Atherosclerotic vascular calcification coronary arteries. Degenerative changes of the thoracic spine. Electronically Signed: William Hester MD, FELICITA at 8:28 EDT ,
== END | disposition home or self-care (01) ==
PROVIDERS: PCP Family Medicine; Referring Provider Urology; Visit Provider Urology
DX: C78.30 Secondary malignant neoplasm of unspecified respiratory organ (principal); C61 Malignant neoplasm of prostate; R97.20 Elevated prostate specific antigen [PSA]
CPT/HCPCS: 71250

== ENCOUNTER → 2022-06-02 | Outpatient (CLI) | payer MEDICARE, SELFPAY | END | disposition home or self-care (01) | LOC: LAB 12:03 | PROVIDERS: PCP Family Medicine; Referring Provider Registered Nurse; Visit Provider Registered Nurse | DX: R97.20 Elevated prostate specific antigen [PSA] (principal); C61 Malignant neoplasm of prostate; E78.2 Mixed hyperlipidemia | CPT/HCPCS: 36415; 84153; 84403 ==

== ENCOUNTER → 2022-07-01 | Outpatient (CLI) | payer MEDICARE, SELFPAY ==
--- NOTE | 2022-07-01 14:47 | US_ITS ---
INDICATION: New mass at base of L neck EXAMINATION: Ultrasound US Head/Neck Soft Tissue TECHNIQUE: Frazier scale and color doppler imaging was performed of the left lower neck. COMPARISON: None. FINDINGS: Scanning of the area of interest shows a 4.8 x 2.8 x 4.4 cm ovoid thick-walled complex lesion, primarily cystic, and containing numerous thin septations. There is minimal blood flow within the wall of this lesion but the internal septations show no Doppler flow. This is not have the appearance of an enlarged lymph node or other solid mass, and it may represent an abscess though a subcutaneous hematoma could also cause a similar sonographic appearance. US/Head/Neck Soft Tissue IMPRESSION: 4.8 cm complex and primarily cystic septated mass in the left lower neck; differential possibilities would include abscess or subacute hematoma. Percutaneous aspiration may be of benefit. Alternatively, enhanced CT could be utilized for further evaluation. Electronically Signed: Balaji Eduardo MD at 5:32 EDT ,
== END | disposition home or self-care (01) ==
LOC: US 14:46
PROVIDERS: PCP Family Medicine; Referring Provider Family Medicine; Visit Provider Family Medicine
DX: R22.1 Localized swelling, mass and lump, neck (principal)
CPT/HCPCS: 76536

== ENCOUNTER → 2022-07-16 | Outpatient (CLI) | payer MEDICARE, SELFPAY ==
--- NOTE | 2022-07-16 11:00 | RAD_ITS ---
HISTORY: diabetic foot ulcer- evaluate for osteo. TECHNIQUE: XR Foot Min 3 Views. COMPARISON: None. FINDINGS: BONES : No acute fracture identified. Mild osteopenia without cortical erosion. JOINTS: No dislocation. Mild degenerative change. SOFT TISSUES: Peripheral vascular disease. Soft tissue swelling. Ulceration of the first toe. RAD/Foot min 3 Views IMPRESSION: No acute osseous abnormality identified in the left foot. Electronically Signed: Georgia Conway MD at 11:38 EDT ,
[2022-07-16 16:51] LABS: Absolute Lymphocyte Count 1.35 X10^3/uL (0.83-4.51); Absolute Neutrophil Count 5.8 X10^3/uL (2.0-7.7); Basophil# 0.04 X10^3/uL; Basophil% 0.5 % (0-1); Eosinophil# 0.22 X10^3/uL; Eosinophils% 2.7 % (0-5); Hematocrit 38.4 % (40-54); Hemoglobin 12.5 g/dL (13.0-16.5); Lymphocyte # 1.35 X10^3/ul (0.83-4.51); Lymphocyte % 16.4 % (19-41); Mean Corp Hgb Conc 32.6 g/dL (32-36); Mean Corpuscular Hgb 31.5 pg (27.0-32.0); Mean Corpuscular Volume 96.7 fL (80-94); Mean Platelet Vol. 11.1 fl (6.2-12.0); Monocyte# 0.77 X10^3/uL; Monocyte% 9.4 % (0-10); NRBC Flagged by Analyzer 0 % (0-5); Neutrophil # 5.79 X10^3/uL (2.7-7.7); Neutrophil % 70.4 % (47-70); Platelet Count 241 K/mm3 (150-450); RBC Distribution Width CV 12.7 % (11.6-14.6); RBC Distribution Width SD 45.1 fl (35.1-43.9); Red Blood Count 3.97 M/mm3 (4.6-6.2); White Blood Count 8.2 K/mm3 (4.4-11.0)
[2022-07-16 16:52] LABS: Erythrocyte Sedimentation Rate 44 mm/hr (0-20)
== END | disposition home or self-care (01) ==
LOC: MTLAB 11:00
PROVIDERS: PCP Family Medicine; Referring Provider Family Medicine; Visit Provider Family Medicine
DX: E11.621 Type 2 diabetes mellitus with foot ulcer (principal)
CPT/HCPCS: 36415; 73630; 85025; 85652

== ENCOUNTER 2022-08-05 10:30 | Outpatient (RCR) | payer MEDICARE, SELFPAY ==
[2022-07-22 10:07] VITALS: BP 137/74; PULSE 87; RESP 16; BMI 31.4
--- NOTE | 2022-07-22 10:38 | PCM.WC.HP ---
History of Present Illness Date of Service: 07/22/22 Chief Complaint: Left medial hallux wound History of Wound: Patient is a 77-year-old male with PMHx of DM type II with peripheral polyneuropathy, PVD, OA, hyperlipidemia, and PE was on Eliquis. He presents to the wound care center 07/22/2022 for medial left hallux ulceration secondary to self induced iatrogenic trimming of callus. He and his have been caring for the wound at home and had been soaking in Epsom salt however states eschar became soft and the switch to applying a Betadine like drying agent daily to the ulcerative site. He had follow-up with his PCP who placed him on Keflex 500 mg twice a day and after finishing this antibiotic had been placed on Bactrim DS and is currently finishing this antibiotic. He did have lab work done which did not demonstrate elevated ESR at 40 consistent with a local cellulitis. He also had x-rays of the left foot which were negative for osteomyelitis. He was referred to the wound care center for continued follow-up and care of his ulceration. He denies any N/V/F/chills. Denies further complaints. [facility] Medical History COVID-19 Diabetes mellitus Esophageal reflux Family history of hemochromatosis Mixed hyperlipidemia EDILIA on CPAP Osteoarthritis Prostate CA Pulmonary embolism Sebaceous cyst Sleep apnea Type 2 diabetes mellitus Home Medications sertraline 100 mg tablet 100 mg PO DAILY 05/02/20 [History Last Taken 05/01/20] metformin 500 mg tablet 500 mg PO BID 09/22/21 [History Last Taken Unknown] apixaban 5 mg tablet (Eliquis) 5 mg PO BID 09/24/21 [History Last Taken Unknown] atorvastatin 20 mg tablet 20 mg PO QHS #30 tabs 10/08/21 [Rx Last Taken Unknown] empagliflozin 10 mg tablet (Jardiance) 25 mg PO DAILY 11/05/21 [History Last Taken Unknown] cilostazol 50 mg tablet 50 mg PO BID #120 tabs 11/12/21 [Rx Last Taken Unknown] glimepiride 4 mg tablet 4 mg PO DAILY 11/12/21 [History Last Taken Unknown] Allergy/AdvReac Type Severity Reaction Status Date / Time No Known Allergies Allergy Verified 11/12/21 09:11 Family History Brother Hemochromatosis Sister Hemochromatosis Brother Heart disease Surgical History History of left hip replacement History of right hip replacement History of tonsillectomy and adenoidectomy Social History Smoking Status: Never smoker alcohol intake: never substance use type: does not use caffeine: Yes Type: coffee Number of servings: 1 ROS Constitutional Constitutional: Denies chills, fatigue or fever(s) Eyes Eyes: Denies change in vision, double vision or eye pain ENT HEENT: Denies dysphagia, nasal congestion or sore throat Cardiovascular Cardiovascular: Denies chest pain, claudication or palpitations Respiratory/Chest Respiratory/Chest: Denies cough, shortness of breath with exertion or wheezing Gastrointestinal Gastrointestinal: Denies abdominal pain, constipation, diarrhea, nausea or vomiting Genitourinary Genitourinary: Denies dysuria, hematuria, urinary incontinence or urinary urgency Musculoskeletal Musculoskeletal: Denies joint pain, joint stiffness or joint swelling Integumentary Integumentary: Denies jaundice, pruritus or rash Neurologic Neurologic: Denies dizziness, numbness or seizures Endocrine Endocrinology: Denies cold intolerance or heat intolerance Hematologic/Lymphatic Hematologic/Lymphatic: Denies easy bleeding or easy bruising Vital Signs Vital Signs Vital Signs: 07/22/22 10:07 Pulse Rate 87 Respiratory Rate 16 Blood Pressure 137/74 H Blood Pressure Mean 95 Blood Pressure Source Monitor Blood Pressure Position Semi-Fowlers Blood Pressure Location Left Arm Weight Weight: 93.894 kg Body Mass Index (BMI) 31.4 Physical Exam Const alert, oriented x3 and no apparent distress General Appearance: cooperative HEENT normocephalic Eyes General Eye: normal appearance of both eyes Neck General: normal visual inspection Lymph Lymphatic: no lymphadenopathy noted and no lymphedema noted Resp normal respiratory effort Cardio regular rate and regular rhythm Extremity no joint enlargement, no calf tenderness and no pedal edema Extremity Narrative: DP and PT pulses nonpalpable bilateral. DP and PT pulses biphasic on Doppler bilateral. Capillary fill time to the digits is sluggish at 7 seconds. Dermatological: Skin is soft, supple, with normal turgor. There is an ulceration noted to the medial aspect of the left hallux secondary to self-induced iatrogenic wound. Ulceration noted to have dried eschar covering with some hyperkeratosis about the ulcerative rim. No drainage noted. There is some localized rubor without increased temperature. No purulent drainage, no malodor, no palpable fluctuance/bogginess, no visible abscess, no lymphangitic streaking. Musculoskeletal: Muscle strength 5 of 5 age-appropriate. There is decreased ankle range of motion in dorsiflexion with the knee extended without pain or crepitus. There is decreased range of motion of the first metatarsophalangeal joint bilateral without pain or crepitus. Skin no rashes or lesions noted, skin turgor normal and no jaundice Neuro moves all extremities Neuro Narrative: Decreased protective sensation to bilateral foot secondary to diabetic peripheral polyneuropathy Debridement Note Debridement Note Wound debrided: Left medial hallux Laterality: Left Wound Grade/Stage: Horn stage I Type of Debridement: Excisional debridement Anesthesia Used: 5% Lidocaine Gel Depth: Down to and including healthy tissue and in the subcutaneous layer Percentage of wound debrided: 100 Instrument Used: 5mm curette and #15 blade Tissue Removed: Fibrous, devitalized subcutaneous, biofilm, slough Severity: Fat Layer Exposed Amount of bleeding with debridement: Mild Bleeding Controlled with: Compression and gauze Patient tolerated procedure: Patient tolerated procedure well Post-Debridement Measurements and Additional Note: Post-Debridement Measurements/Treatment - Nurse 1 - General Ulcer Assessment Start: 07/22/22 10:07 Freq: Status: Active Protocol: [email or web address] Activity Type Activity Date Activity User E-sign Co-sign Detail Recorded Client Recorded Date Recorded By Document 07/22/22 10:07 KEMAL [id number] 07/22/22 10:22 KEMAL 07/22/22 10:07 - Today's Visit Information Type of service Initial Visit Arrival Mode Ambulatory Patient Identification Verified (Name & Yes ) Patient Requires Transmission-Based No Precautions Finger Stick Blood Sugar(mg/dl) (if 146 indicated): Height and Weight Height 5 ft 8 in Weight 93.894 kg Weight in Pounds 207.0 lbs Weight Measurement Method Estimated by Patient Body Mass Index (BMI) 31.4 BMI Classification Obese BSA - Carol 2.07 Vital Signs Pulse Rate (60-100 beats/min) 87 Pulse Location Monitor Respiratory Rate (12-18 breaths/min) 16 Respiratory rate source Observation Blood Pressure (90/60-120/80 mm Hg) 137/74 H Blood Pressure Mean (mm Hg) 95 Source Monitor Position Semi-Fowlers Blood Pressure Location Left Arm History Since Last Visit- (Skip if this is Patient's initial visit) Left Footwear Regular Shoe Right Footwear Regular Shoe Pain Scale: 0-10 Numeric Is Patient Pain Free? Yes Communication Assessment Preferred language Belarusian Vertical Lathe Operator Required No Able to Read Yes Able to Write Yes Communication Tools None Right Hearing Abillity Normal Left Hearing Abillity Normal Visual Assistive Devices None Teaching Assessment Preferences Verbal,Written, Audio/Visual, Demonstration Barriers to Learning None Readiness To Learn Excellent Willingness to Engage in Self Management High Activies Readiness to Engage in Self Management High Activities Anxiety Level Anxious Cooperation Cooperative Perception Coherent Interest in Health Problem Asks Questions Education Importance Acknowledges Need Does Patient Smoke tobacco or other No substances Is Patient Diabetic Yes Functional Assessment Recent Decline in Ability to Perform Denies Any Declines Culture/Catholic/Railroad Design Consultant Cultural/Catholic Needs that may affect No Treatment Plan Would you allow our hospital independent trader to No meet you for the purpose of spiritual/ emotional support? Railroad Design Consultant to contact place of adventist No Teaching: Wound Center [facility] Orientation/ Contacting Physician -Person Taught Patient,Family -Teaching Method Discussion, Demonstration -Response to teaching Return demonstration, Verbalize understanding - Nurse 1 - General Ulcer Measurement Start: 07/22/22 10:07 Freq: Status: Active Protocol: Activity Type Activity Date Activity User E-sign Co-sign Detail Recorded Client Recorded Date Recorded By Document 07/22/22 10:07 KEMAL [id number] 07/22/22 10:22 KEMAL 07/22/22 10:07 Wound Center Nurse 1 1-left hallux -Combined with other wound No -Current Size (cm) - Length 2.0 -Current Size (cm) - Width 1.7 -Current Size (cm) - Depth 0.2 -Total Square Cm 3.40 -Photo Taken Yes -Epithelialization None Present -Tunneling No -Undermining/Tunneling No -Circular Undermining No -Classification - Thickness Unclassifiable (Eschar Covered ) -Classification - Pressure Ulcer Unstageable -Exudate Amt None Present -Wound Margin Fibrotic Scar, Thickened Scar -Granulation Amt None Present (0 %) -Slough/Fibrin Yes -Necrosis Amt Large (67-100%) -Necrotic Tissue Type Eschar -Structure Exposed N/A -Texture (Yeimi-wound Skin Appearance) Assessed,Callus -Moisture (Yeimi-wound Skin Appearance) Assessed,Dry/ Scaly -Color (Yeimi-wound Skin Appearance) Assessed -Temperature (Yeimi-wound Skin No Abnormality Appearance) (Pt Warm) -Tenderness on Palpation (Yeimi-wound No Skin Appearance) -Ulcer Cleansing Rinsed/ Irrigated with Saline -Foul Odor after Cleansing No -Anesthetic Used 5% Lidocaine Gel Lower Limb Edema Present NA Assessment/Plan Assessment/Plan (1) Claudication of both lower extremities: CODE(S): I73.9 - Peripheral vascular disease, unspecified (2) Osteoarthritis: CODE(S): M19.90 - Unspecified osteoarthritis, unspecified site (3) Diabetes mellitus with diabetic polyneuropathy: CODE(S): E11.42 - Type 2 diabetes mellitus with diabetic polyneuropathy (4) Non-pressure chronic ulcer of other part of left foot with fat layer exposed: CODE(S): L97.522 - Non-pressure chronic ulcer of other part of left foot with fat layer exposed PLAN: Plan Patient seen and evaluated He does have diminished pedal pulses with nonpalpable DP and PT pulses bilateral. On Doppler DP and PT noted to be biphasic. He does have documented peripheral vascular disease at the pedal level with likely neurogenic ideology. He is following with Dr. Lane last saw 11/12/2021 and was recommended to return in 2 months for follow-up if his claudication continued. Patient did not follow-up. I discussed with him today that it is recommended due to new ulceration to the site he should return for evaluation to ensure healing can be optimized. Patient is diabetic last A1c 8%. Discussed proper diabetic diet today to optimize glycemic control and boost healing status. Discussed he is to not go barefoot, socks include barefoot status. Encouraged shoe gear to be worn at all times. Encouraged daily foot check. Left medial hallux wound secondary to self-induced iatrogenic tissue injury secondary to trying to trim his own callus. Ulceration underwent debridement as noted in the clinical panel above. Ulcerative site measures 2 cm x 1.7 cm x 0.1 cm. Postdebridement healthy bleeding tissue noted with healthy granular base. No signs of infection. Ulcerative site was dressed with Jazzy and dry sterile dressing. Discussed he is to change dressings daily. Reminded him to check feet daily. He did undergo routine work-up for localized cellulitis of his toe on 07/16/2022 which demonstrated WBC WNL, ESR 40. He also underwent radiograph of the left foot which was negative for osteomyelitis. He has taken and completed course of oral Keflex and is currently completing oral course of Bactrim DS. Recommended he finish oral antibiotic to completion. Recommended probiotic, activita to aid in digestive issues secondary to antibiotic. I discussed signs and symptoms of infection that he should observe for. Discussed if he begins to have redness around the ulcerative site that spreads across the toe onto the foot, purulent drainage from the ulcer site, increasing foul odor, or if he experiences fever greater than 101 degree, nausea, vomiting, or chills that these are signs of a progressing infection and he should report to the ED to receive IV antibiotics. He voices understanding of this today. The following work up and care recommendations were made: Dressing: Jazzy and dry sterile dressing Wash: Soap and water Tissue growth optimization: Jazzy Offload: Diabetic shoe gear with plantar offloading inserts Vascular: Nonpalpable DP and PT pulses bilateral. DP and PT biphasic on Doppler bilateral. Capillary fill time to the digits greater than 7 seconds. Edema: No edema noted Infection: No signs of infection. Patient currently finishing oral course of Bactrim DS Pain: May take [id number] Tylenol for discomfort Host factors: DM type II with peripheral polyneuropathy, PVD, patient education on self-care. I answered all the patient's questions. To return to the wound healing center in 1 week or call sooner if the patient has any questions or concerns.
--- NOTE | 2022-07-29 10:38 | PCM.WC.PN ---
History of Present Illness Date of Service: 07/29/22 Chief Complaint: Left medial hallux wound History of Wound: Patient is a 77-year-old male with PMHx of DM type II with peripheral polyneuropathy, PVD, OA, hyperlipidemia, and PE was on Eliquis. He presents to the wound care center 07/22/2022 for medial left hallux ulceration secondary to self induced iatrogenic trimming of callus. He and his have been caring for the wound at home and had been soaking in Epsom salt however states eschar became soft and the switch to applying a Betadine like drying agent daily to the ulcerative site. He had follow-up with his PCP who placed him on Keflex 500 mg twice a day and after finishing this antibiotic had been placed on Bactrim DS and is currently finishing this antibiotic. He did have lab work done which did not demonstrate elevated ESR at 40 consistent with a local cellulitis. He also had x-rays of the left foot which were negative for osteomyelitis. He was referred to the wound care center for continued follow-up and care of his ulceration. He denies any N/V/F/chills. Denies further complaints. Subjective Subjective This is a 77-year-old male who presents to the wound care center today for follow-up of a left medial hallux ulceration. He states he was unable to perform daily dressing changes as supplies were delayed in shipping. He states he just got supplies yesterday. He has been elevating as much as possible. Denies constitutional symptoms. Denies further complaints. Objective Data Objective Data Vital Signs: Vital Signs Pulse Resp BP 87 16 137/74 H 07/22/22 10:07 07/22/22 10:07 07/22/22 10:07 Weight: 93.894 kg Body Mass Index (BMI) 31.4 Physical Exam Const alert, oriented x3 and no apparent distress General Appearance: cooperative HEENT normocephalic Eyes General Eye: normal appearance of both eyes Neck General: normal visual inspection Lymph Lymphatic: no lymphadenopathy noted and no lymphedema noted Resp normal respiratory effort Cardio regular rate and regular rhythm Extremity no joint enlargement, no calf tenderness and no pedal edema Extremity Narrative: DP and PT pulses nonpalpable bilateral. DP and PT pulses biphasic on Doppler bilateral. Capillary fill time to the digits is sluggish at 7 seconds. Dermatological: Skin is soft, supple, with normal turgor. There is an ulceration noted to the medial aspect of the left hallux secondary to self-induced iatrogenic wound. Ulceration noted to have mixed fibrogranular layer with some hyperkeratosis about the ulcerative rim. No drainage noted. There is some localized rubor without increased temperature. No purulent drainage, no malodor, no palpable fluctuance/bogginess, no visible abscess, no lymphangitic streaking. Musculoskeletal: Muscle strength 5 of 5 age-appropriate. There is decreased ankle range of motion in dorsiflexion with the knee extended without pain or crepitus. There is decreased range of motion of the first metatarsophalangeal joint bilateral without pain or crepitus. Skin no rashes or lesions noted, skin turgor normal and no jaundice Neuro moves all extremities Neuro Narrative: Decreased protective sensation to bilateral foot secondary to diabetic peripheral polyneuropathy Debridement Note Debridement Note Wound debrided: Left medial hallux Laterality: Left Wound Grade/Stage: Horn stage I Type of Debridement: Excisional debridement Anesthesia Used: 5% Lidocaine Gel Depth: Down to and including healthy tissue and in the subcutaneous layer Percentage of wound debrided: 100 Instrument Used: 5mm curette Tissue Removed: Fibrous, devitalized subcutaneous, biofilm, slough Severity: Fat Layer Exposed Amount of bleeding with debridement: Mild Bleeding Controlled with: Compression and gauze Patient tolerated procedure: Patient tolerated procedure well Post-Debridement Measurements and Additional Note: Post-Debridement Measurements/Treatment - Nurse 1 - General Ulcer Assessment Start: 07/22/22 10:07 Freq: Status: Active Protocol: FRANCK Activity Type Activity Date Activity User E-sign Co-sign Detail Recorded Client Recorded Date Recorded By Document 07/22/22 10:07 KEMAL [id number] 07/22/22 10:22 KEMAL 07/22/22 10:07 - Today's Visit Information Type of service Initial Visit Arrival Mode Ambulatory Patient Identification Verified (Name & Yes ) Patient Requires Transmission-Based No Precautions Finger Stick Blood Sugar(mg/dl) (if 146 indicated): Height and Weight Height 5 ft 8 in Weight 93.894 kg Weight in Pounds 207.0 lbs Weight Measurement Method Estimated by Patient Body Mass Index (BMI) 31.4 BMI Classification Obese BSA - Carol 2.07 Vital Signs Pulse Rate (60-100) 87 Pulse Location Monitor Respiratory Rate (12-18) 16 Respiratory rate source Observation Blood Pressure (90/60-120/80) 137/74 H Blood Pressure Mean (mm Hg) 95 Source Monitor Position Semi-Fowlers Blood Pressure Location Left Arm History Since Last Visit- (Skip if this is Patient's initial visit) Left Footwear Regular Shoe Right Footwear Regular Shoe Pain Scale: 0-10 Numeric Is Patient Pain Free? Yes Communication Assessment Preferred language Persian Non Emergency Services Ambulance Driver Required No Able to Read Yes Able to Write Yes Communication Tools None Right Hearing Abillity Normal Left Hearing Abillity Normal Visual Assistive Devices None Teaching Assessment Preferences Verbal,Written, Audio/Visual, Demonstration Barriers to Learning None Readiness To Learn Excellent Willingness to Engage in Self Management High Activies Readiness to Engage in Self Management High Activities Anxiety Level Anxious Cooperation Cooperative Perception Coherent Interest in Health Problem Asks Questions Education Importance Acknowledges Need Does Patient Smoke tobacco or other No substances Is Patient Diabetic Yes Functional Assessment Recent Decline in Ability to Perform Denies Any Declines Culture/Quaker/Design Editor Cultural/Quaker Needs that may affect No Treatment Plan Would you allow our hospital waterworks operator to No meet you for the purpose of spiritual/ emotional support? Design Editor to contact place of muslim No Teaching: Wound Center [facility] Orientation/ Contacting Physician -Person Taught Patient,Family -Teaching Method Discussion, Demonstration -Response to teaching Return demonstration, Verbalize understanding - Nurse 1 - General Ulcer Measurement Start: 07/22/22 10:07 Freq: Status: Active Protocol: Activity Type Activity Date Activity User E-sign Co-sign Detail Recorded Client Recorded Date Recorded By Document 07/22/22 10:07 KEMAL [id number] 07/22/22 10:22 KEMAL 07/22/22 10:07 Wound Center Nurse 1 1-left hallux -Combined with other wound No -Current Size (cm) - Length 2.0 -Current Size (cm) - Width 1.7 -Current Size (cm) - Depth 0.2 -Total Square Cm 3.40 -Photo Taken Yes -Epithelialization None Present -Tunneling No -Undermining/Tunneling No -Circular Undermining No -Classification - Thickness Unclassifiable (Eschar Covered ) -Classification - Pressure Ulcer Unstageable -Exudate Amt None Present -Wound Margin Fibrotic Scar, Thickened Scar -Granulation Amt None Present (0 %) -Slough/Fibrin Yes -Necrosis Amt Large (67-100%) -Necrotic Tissue Type Eschar -Structure Exposed N/A -Texture (Yeimi-wound Skin Appearance) Assessed,Callus -Moisture (Yeimi-wound Skin Appearance) Assessed,Dry/ Scaly -Color (Yeimi-wound Skin Appearance) Assessed -Temperature (Yeimi-wound Skin No Abnormality Appearance) (Pt Warm) -Tenderness on Palpation (Yeimi-wound No Skin Appearance) -Ulcer Cleansing Rinsed/ Irrigated with Saline -Foul Odor after Cleansing No -Anesthetic Used 5% Lidocaine Gel Lower Limb Edema Present NA WC - Nurse 2 - General Ulcer CM Notes Start: 07/22/22 10:07 Freq: Status: Active Protocol: Activity Type Activity Date Activity User E-sign Co-sign Detail Recorded Client Recorded Date Recorded By Document 07/22/22 12:12 KARMA [id number] 07/22/22 12:14 PL 07/22/22 12:12 Wound Center Nurse 2 1-left hallux -Time 10:46 -Correct Patient Yes -Correct Side, Site, Position Yes -Correct Procedure Yes -Procedure Performed Yes -Type of Procedure Debridement -Clinical Debridement Subcutaneous -Tissue Removed Subcutaneous -Post Debridement (cm) - Length 2.0 -Post Debridement (cm) - Width 1.7 -Post Debridement (cm) - Depth 0.1 -Total Square (Post) (cm) 3.40 -Area of Debridement (cm) - Length 2.0 -Area of Debridement (cm) - Width 1.7 -Total Square (Area) (cm) 3.40 -Tunneling No -Undermining/Tunneling No -Circular Undermining No -Wound/Ulcer Outcome Not Healed -Ulcer Cleansing Rinsed/ Irrigated with Saline -Foul Odor after Cleansing No -Bioengineered Tissue No -Bleeding Controlled with Pressure -Treatment Response Procedure Tolerated Well -Debridement - Subq, 1st 20sq cm Yes Pain Scale: 0-10 Numeric Is Patient Pain Free? Yes Assessment/Plan Assessment/Plan (1) Claudication of both lower extremities: CODE(S): I73.9 - Peripheral vascular disease, unspecified (2) Osteoarthritis: CODE(S): M19.90 - Unspecified osteoarthritis, unspecified site (3) Diabetes mellitus with diabetic polyneuropathy: CODE(S): E11.42 - Type 2 diabetes mellitus with diabetic polyneuropathy (4) Non-pressure chronic ulcer of other part of left foot with fat layer exposed: CODE(S): L97.522 - Non-pressure chronic ulcer of other part of left foot with fat layer exposed PLAN: Plan Patient seen and evaluated He does have diminished pedal pulses with nonpalpable DP and PT pulses bilateral. On Doppler DP and PT noted to be biphasic. He does have documented peripheral vascular disease at the pedal level with likely neurogenic ideology. He is following with Dr. Lane last saw 11/12/2021 and was recommended to return in 2 months for follow-up if his claudication continued. Patient did not follow-up. I discussed with him today that it is recommended due to new ulceration to the site he should return for evaluation to ensure healing can be optimized. Patient is diabetic last A1c 8%. Discussed proper diabetic diet today to optimize glycemic control and boost healing status. Discussed he is to not go barefoot, socks include barefoot status. Encouraged shoe gear to be worn at all times. Encouraged daily foot check. Left medial hallux wound secondary to self-induced iatrogenic tissue injury secondary to trying to trim his own callus. Ulceration underwent debridement as noted in the clinical panel above. Ulcerative site measures 1.7 cm x 1.1 cm x 0.1 cm. Postdebridement healthy bleeding tissue noted with healthy granular base. No signs of infection. Ulcerative site was dressed with Jazzy and dry sterile dressing. Discussed he is to change dressings daily. Reminded him to check feet daily. Ulceration demonstrates reduction in size versus previous visit. He did undergo routine work-up for localized cellulitis of his toe on 07/16/2022 which demonstrated WBC WNL, ESR 40. He also underwent radiograph of the left foot which was negative for osteomyelitis. He has taken and completed course of oral Keflex and is currently completing oral course of Bactrim DS. He has finished oral antibiotic to completion. Recommended probiotic, activita to aid in digestive issues secondary to antibiotic. I discussed signs and symptoms of infection that he should observe for. Discussed if he begins to have redness around the ulcerative site that spreads across the toe onto the foot, purulent drainage from the ulcer site, increasing foul odor, or if he experiences fever greater than 101 degree, nausea, vomiting, or chills that these are signs of a progressing infection and he should report to the ED to receive IV antibiotics. He voices understanding of this today. The following work up and care recommendations were made: Dressing: Jazzy and dry sterile dressing Wash: Soap and water Tissue growth optimization: Jazzy Offload: Diabetic shoe gear with plantar offloading inserts Vascular: Nonpalpable DP and PT pulses bilateral. DP and PT biphasic on Doppler bilateral. Capillary fill time to the digits greater than 7 seconds. Edema: No edema noted Infection: No signs of infection. Patient currently finishing oral course of Bactrim DS Pain: May take [id number] Tylenol for discomfort Host factors: DM type II with peripheral polyneuropathy, PVD, patient education on self-care. I answered all the patient's questions. To return to the wound healing center in 1 week or call sooner if the patient has any questions or concerns.
[2022-07-29 10:48] VITALS: BP 145/85; PULSE 71; RESP 18; TEMP 35.9; BMI 31.4
[2022-08-05 10:34] VITALS: TEMP 35.9; BMI 31.4
--- NOTE | 2022-08-05 11:59 | PCM.WC.PN ---
History of Present Illness Date of Service: 08/05/22 Chief Complaint: Left medial hallux wound History of Wound: Patient is a 77-year-old male with PMHx of DM type II with peripheral polyneuropathy, PVD, OA, hyperlipidemia, and PE was on Eliquis. He presents to the wound care center 07/22/2022 for medial left hallux ulceration secondary to self induced iatrogenic trimming of callus. He and his have been caring for the wound at home and had been soaking in Epsom salt however states eschar became soft and the switch to applying a Betadine like drying agent daily to the ulcerative site. He had follow-up with his PCP who placed him on Keflex 500 mg twice a day and after finishing this antibiotic had been placed on Bactrim DS and is currently finishing this antibiotic. He did have lab work done which did not demonstrate elevated ESR at 40 consistent with a local cellulitis. He also had x-rays of the left foot which were negative for osteomyelitis. He was referred to the wound care center for continued follow-up and care of his ulceration. He denies any N/V/F/chills. Denies further complaints. Subjective Subjective This is a 77-year-old male who presents to the wound care center today for follow-up of a left medial hallux ulceration. He has been changing dressings daily with Jazzy. He has been elevating as much as possible. Denies constitutional symptoms. Denies further complaints. Objective Data Objective Data Vital Signs: Vital Signs Temp Pulse Resp BP O2 Del Method 96.6 F L 71 18 145/85 H Room Air 08/05/22 10:34 07/29/22 10:48 07/29/22 10:48 07/29/22 10:48 07/29/22 10:48 Oxygen Delivery Method Room Air Weight: 93.894 kg Body Mass Index (BMI) 31.4 Physical Exam Const alert, oriented x3 and no apparent distress General Appearance: cooperative HEENT normocephalic Eyes General Eye: normal appearance of both eyes Neck General: normal visual inspection Lymph Lymphatic: no lymphadenopathy noted and no lymphedema noted Resp normal respiratory effort Cardio regular rate and regular rhythm Extremity no joint enlargement, no calf tenderness and no pedal edema Extremity Narrative: DP and PT pulses nonpalpable bilateral. DP and PT pulses biphasic on Doppler bilateral. Capillary fill time to the digits is sluggish at 7 seconds. Dermatological: Skin is soft, supple, with normal turgor. There is an ulceration noted to the medial aspect of the left hallux secondary to self-induced iatrogenic wound. Ulceration noted to have mixed fibrogranular layer with some hyperkeratosis about the ulcerative rim. No drainage noted. There is some localized rubor without increased temperature. No purulent drainage, no malodor, no palpable fluctuance/bogginess, no visible abscess, no lymphangitic streaking. Musculoskeletal: Muscle strength 5 of 5 age-appropriate. There is decreased ankle range of motion in dorsiflexion with the knee extended without pain or crepitus. There is decreased range of motion of the first metatarsophalangeal joint bilateral without pain or crepitus. Skin no rashes or lesions noted, skin turgor normal and no jaundice Neuro moves all extremities Neuro Narrative: Decreased protective sensation to bilateral foot secondary to diabetic peripheral polyneuropathy Debridement Note Debridement Note Wound debrided: Left hallux Laterality: Left Wound Grade/Stage: Horn stage I Type of Debridement: Excisional debridement Anesthesia Used: 5% Lidocaine Gel Depth: Down to and including healthy tissue and in the subcutaneous layer Percentage of wound debrided: 100 Instrument Used: 5mm curette, #15 blade and Forceps Tissue Removed: Fibrous, devitalized subcutaneous, biofilm, slough Severity: Fat Layer Exposed Amount of bleeding with debridement: Mild Bleeding Controlled with: Compression and gauze Patient tolerated procedure: Patient tolerated procedure well Post-Debridement Measurements and Additional Note: Post-Debridement Measurements/Treatment IRMA - Nurse 1 - General Ulcer Assessment Start: 07/22/22 10:07 Freq: Status: Active Protocol: FRANCK Activity Type Activity Date Activity User E-sign Co-sign Detail Recorded Client Recorded Date Recorded By Document 07/22/22 10:07 KEMAL [id number] 07/22/22 10:22 KEMAL Document 07/29/22 10:48 HENRY [id number] 07/29/22 11:01 HENRY Document 08/05/22 10:34 KEMAL [id number] 08/05/22 10:43 KEMAL 07/22/22 07/29/22 08/05/22 10:07 10:48 10:34 IRMA - Today's Visit Information Type of service Initial Visit Follow-up Visit Follow-up Visit (Physician/FLIGHT OPERATIONS COORDINATOR (Physician/FLIGHT OPERATIONS COORDINATOR ) ) Arrival Mode Ambulatory Ambulatory Accompanied by Patient Identification Verified (Name & Yes Yes Yes ) Patient Requires Transmission-Based No No No Precautions Safety Precautions NA Finger Stick Blood Sugar(mg/dl) (if 146 147 157 indicated): Blood Sugar Stated by Stated by Patient Patient Height and Weight Height 5 ft 8 in Weight 93.894 kg Weight in Pounds 207.0 lbs Weight Measurement Method Estimated by Patient Body Mass Index (BMI) 31.4 31.4 31.4 BMI Classification Obese Obese Obese BSA - Carol 2.07 Vital Signs Temperature (97.8 F-99.1 F) 96.7 F L 96.6 F L Temperature Source Temporal Temporal Pulse Rate (60-100) 87 71 Pulse Location Monitor Monitor Respiratory Rate (12-18) 16 18 Respiratory rate source Observation Observation Oxygen Delivery Method Room Air Blood Pressure (90/60-120/80) 137/74 H 145/85 H Blood Pressure Mean (mm Hg) 95 105 Source Monitor Monitor Position Semi-Fowlers Sitting Blood Pressure Location Left Arm Left Arm History Since Last Visit- (Skip if this is Patient's initial visit) Have you changed medications since your Yes No last visit? Any new allergies or adverse reactions No No Had a fall/change in ADL's that may No No increase risk of falls Signs or symptoms of abuse and/or No No neglect since last visit Have you been in the hospital since your No Yes last visit? Has dressing in place as prescribed No Has compression in place as prescribed N/A Has offloadiing in place as prescribed Yes Experienced any changes in pain level or No management Left Footwear Regular Shoe Regular Shoe Regular Shoe Right Footwear Regular Shoe Regular Shoe Regular Shoe Pain Scale: 0-10 Numeric Is Patient Pain Free? Yes Yes Yes Communication Assessment Preferred language [place] [employer] Required No Able to Read Yes Able to Write Yes Communication Tools None Right Hearing Abillity Normal Left Hearing Abillity Normal Visual Assistive Devices None Teaching Assessment Preferences Verbal,Written, Audio/Visual, Demonstration Barriers to Learning None Readiness To Learn Excellent Willingness to Engage in Self Management High Activies Readiness to Engage in Self Management High Activities Anxiety Level Anxious Cooperation Cooperative Perception Coherent Interest in Health Problem Asks Questions Education Importance Acknowledges Need Does Patient Smoke tobacco or other No substances Is Patient Diabetic Yes Functional Assessment Recent Decline in Ability to Perform Denies Any Declines Culture/Spiritism/Personalized Living Assistant Cultural/Spiritism Needs that may affect No Treatment Plan Would you allow our hospital tar heater operator to No meet you for the purpose of spiritual/ emotional support? Personalized Living Assistant to contact place of caodaism No Teaching: Wound Center [facility] Orientation/ Contacting Physician -Person Taught Patient,Family -Teaching Method Discussion, Demonstration -Response to teaching Return demonstration, Verbalize understanding - Nurse 1 - General Ulcer Measurement Start: 07/22/22 10:07 Freq: Status: Active Protocol: Activity Type Activity Date Activity User E-sign Co-sign Detail Recorded Client Recorded Date Recorded By Document 07/22/22 10:07 [id number] 07/22/22 10:22 JF Document 07/29/22 10:48 [id number] 07/29/22 11:01 KW Document 08/05/22 10:34 [id number] 08/05/22 10:43 07/22/22 07/29/22 08/05/22 10:07 10:48 10:34 Wound Center Nurse 1 1-left hallux -Combined with other wound No No -Current Size (cm) - Length 2.0 1.9 1.4 -Current Size (cm) - Width 1.7 1.0 1.1 -Current Size (cm) - Depth 0.2 0.1 0.2 -Total Square Cm 3.40 1.90 1.54 -Photo Taken Yes No Yes -Epithelialization None Present Large 67-100% None Present -Tunneling No No No -Undermining/Tunneling No No No -Circular Undermining No No No -Classification - Thickness Unclassifiable (Eschar Covered ) -Classification - Pressure Ulcer Unstageable -Exudate Amt None Present Small Small -Exudate Type Serosanguineous Serosanguineous -Wound Margin Fibrotic Scar, Indistinct, Non Flat & Intact Thickened Scar -Visible -Granulation Amt None Present (0 Small (1-33%) Small (1-33%) %) -Granulation Quality [place] -Slough/Fibrin Yes Yes Yes -Necrosis Amt Large (67-100%) Large (67-100%) Large (67-100%) -Necrotic Tissue Type Eschar Adherent Slough -Structure Exposed N/A N/A N/A -Texture (Yeimi-wound Skin Appearance) Assessed,Callus Assessed, Assessed Localized Edema -Moisture (Yeimi-wound Skin Appearance) Assessed,Dry/ Assessed Assessed,Dry/ Scaly Scaly -Color (Yeimi-wound Skin Appearance) Assessed Assessed, Assessed Erythema -Temperature (Yeimi-wound Skin No Abnormality No Abnormality No Abnormality Appearance) (Pt Warm) (Pt Warm) (Pt Warm) -Tenderness on Palpation (Yeimi-wound No No No Skin Appearance) -Ulcer Cleansing Rinsed/ Rinsed/ Rinsed/ Irrigated with Irrigated with Irrigated with Saline Saline Saline -Foul Odor after Cleansing No No Yes -Anesthetic Used 5% Lidocaine 5% Lidocaine 5% Lidocaine Gel Gel Gel Lower Limb Edema Present NA No WC - Nurse 2 - General Ulcer CM Notes Start: 07/22/22 10:07 Freq: Status: Active Protocol: Activity Type Activity Date Activity User E-sign Co-sign Detail Recorded Client Recorded Date Recorded By Document 07/22/22 12:12 PL [id number] 07/22/22 12:14 PL Document 07/29/22 12:22 PL [id number] 07/29/22 12:23 PL 07/22/22 07/29/22 12:12 12:22 Wound Center Nurse 2 1-left hallux -Time 10:46 10:58 -Correct Patient Yes Yes -Correct Side, Site, Position Yes Yes -Correct Procedure Yes Yes -Procedure Performed Yes Yes -Type of Procedure Debridement Debridement -Clinical Debridement Subcutaneous Subcutaneous -Tissue Removed Subcutaneous Subcutaneous -Post Debridement (cm) - Length 2.0 1.6 -Post Debridement (cm) - Width 1.7 1.1 -Post Debridement (cm) - Depth 0.1 0.1 -Total Square (Post) (cm) 3.40 1.76 -Area of Debridement (cm) - Length 2.0 1.6 -Area of Debridement (cm) - Width 1.7 1.1 -Total Square (Area) (cm) 3.40 1.76 -Tunneling No No -Undermining/Tunneling No No -Circular Undermining No No -Wound/Ulcer Outcome Not Healed Not Healed -Ulcer Cleansing Rinsed/ Rinsed/ Irrigated with Irrigated with Saline Saline -Foul Odor after Cleansing No No -Bioengineered Tissue No No -Bleeding Controlled with Pressure Pressure -Treatment Response Procedure Procedure Tolerated Well Tolerated Well -Debridement - Subq, 1st 20sq cm Yes Yes Pain Scale: 0-10 Numeric Is Patient Pain Free? Yes Yes WC - Nurse 3 - General Ulcer D/C NN Start: 07/22/22 10:07 Freq: Status: Active Protocol: Activity Type Activity Date Activity User E-sign Co-sign Detail Recorded Client Recorded Date Recorded By Document 07/29/22 11:56 AK [id number] 07/29/22 11:57 AK Document 08/05/22 11:27 DL [id number] 08/05/22 11:28 DL 07/29/22 08/05/22 11:56 11:27 Wound Care Center Nurse 3 1-left hallux -Ulcer Cleansing Rinsed/ Not Cleansed Irrigated with Saline -Foul Odor after Cleansing No -Negative Pressure Wound Therapy N/A -Primary Dressing Applied Promogran Hysept ($) Jazzy Matter -Primary Dressing Covered/Secured with Dry Gauze & Dry Gauze & Roll Gauze, Roll Gauze, Secured with Secured with Tape Tape -Promogran Jazzy Matter 1 Treatment Response Procedure Tolerated Well Pain Scale: 0-10 Numeric Is Patient Pain Free? Yes Yes WC - Visit Discharge Discharge Condition Stable Stable Ambulatory Status Ambulatory Ambulatory Transportation Private Auto Private Auto Medication Reconcilliation completed & Yes provided to patient/care provider Clinical Summary of Care Provided Yes Assessment/Plan Assessment/Plan (1) Claudication of both lower extremities: CODE(S): I73.9 - Peripheral vascular disease, unspecified (2) Osteoarthritis: CODE(S): M19.90 - Unspecified osteoarthritis, unspecified site (3) Diabetes mellitus with diabetic polyneuropathy: CODE(S): E11.42 - Type 2 diabetes mellitus with diabetic polyneuropathy (4) Non-pressure chronic ulcer of other part of left foot with fat layer exposed: CODE(S): L97.522 - Non-pressure chronic ulcer of other part of left foot with fat layer exposed PLAN: Plan Patient seen and evaluated He does have diminished pedal pulses with nonpalpable DP and PT pulses bilateral. On Doppler DP and PT noted to be biphasic. He does have documented peripheral vascular disease at the pedal level with likely neurogenic ideology. He is following with Dr. Lane last saw 11/12/2021 and was recommended to return in 2 months for follow-up if his claudication continued. Patient did not follow-up. I discussed with him today that it is recommended due to new ulceration to the site he should return for evaluation to ensure healing can be optimized. Patient is diabetic last A1c 8%. Discussed proper diabetic diet today to optimize glycemic control and boost healing status. Discussed he is to not go barefoot, socks include barefoot status. Encouraged shoe gear to be worn at all times. Encouraged daily foot check. Left medial hallux wound secondary to self-induced iatrogenic tissue injury secondary to trying to trim his own callus. Ulceration underwent debridement as noted in the clinical panel above. Ulcerative site measures 1.7 cm x 1.1 cm x 0.1 cm. Postdebridement healthy bleeding tissue noted with healthy granular base. No signs of infection. Ulcerative site was dressed with Dakin's and dry sterile dressing. Discussed he is to change dressings daily. Reminded him to check feet daily. Ulceration demonstrates no change in size versus previous visit. Discussed seeking approval of advanced wound care product for application at next visit. He did undergo routine work-up for localized cellulitis of his toe on 07/16/2022 which demonstrated WBC WNL, ESR 40. He also underwent radiograph of the left foot which was negative for osteomyelitis. He has taken and completed course of oral Keflex and is currently completing oral course of Bactrim DS. He has finished oral antibiotic to completion. Recommended probiotic, activita to aid in digestive issues secondary to antibiotic. I discussed signs and symptoms of infection that he should observe for. Discussed if he begins to have redness around the ulcerative site that spreads across the toe onto the foot, purulent drainage from the ulcer site, increasing foul odor, or if he experiences fever greater than 101 degree, nausea, vomiting, or chills that these are signs of a progressing infection and he should report to the ED to receive IV antibiotics. He voices understanding of this today. The following work up and care recommendations were made: Dressing: Dakin's and dry sterile dressing Wash: Soap and water Tissue growth optimization: Dakin's Offload: Diabetic shoe gear with plantar offloading inserts Vascular: Nonpalpable DP and PT pulses bilateral. DP and PT biphasic on Doppler bilateral. Capillary fill time to the digits greater than 7 seconds. Edema: No edema noted Infection: No signs of infection. Patient currently finishing oral course of Bactrim DS Pain: May take [id number] Tylenol for discomfort Host factors: DM type II with peripheral polyneuropathy, PVD, patient education on self-care. I answered all the patient's questions. To return to the wound healing center in 1 week or call sooner if the patient has any questions or concerns.
== END 2022-08-06 23:59 | disposition home or self-care (01) ==
LOC: WC 10:30
PROVIDERS: PCP Family Medicine; Referring Provider Family Medicine; Visit Provider Student in an Organized Health Care Education/Training Program
DX: L97.522 Non-pressure chronic ulcer of other part of left foot with fat layer exposed (principal); E11.51 Type 2 diabetes mellitus with diabetic peripheral angiopathy without gangrene; E11.42 Type 2 diabetes mellitus with diabetic polyneuropathy; S99.82 Other specified injuries of foot; W26.8XXS Contact with other sharp object(s), not elsewhere classified, sequela; E78.2 Mixed hyperlipidemia; M19.90 Unspecified osteoarthritis, unspecified site; Z79.01 Long term (current) use of anticoagulants; Z79.84 Long term (current) use of oral hypoglycemic drugs; Z79.899 Other long term (current) drug therapy
CPT/HCPCS: 11042; 99213; G0463

== ENCOUNTER 2022-08-26 10:30 | Outpatient (RCR) | payer MEDICARE, SELFPAY ==
[2022-08-07 01:42] VITALS: BP 145/85; PULSE 71; RESP 18; TEMP 35.9; BMI 31.4
[2022-08-12 10:49] VITALS: BP 124/70; PULSE 100; TEMP 36.3; BMI 31.4
--- NOTE | 2022-08-12 12:10 | WC ---
Application of ALLOGraft product was utilizing a sample product
--- NOTE | 2022-08-12 12:20 | RAD_ITS ---
ACR Level 3 findings have been noted. An addendum which confirms receipt of the report will follow. EXAM: XR LEFT TOES, 2 OR MORE VIEWS CLINICAL INDICATION: WOUND TECHNIQUE: Frontal, lateral and oblique views of the toes of the left foot. COMPARISON: Foot radiograph July 16, 2022. FINDINGS: BONES/JOINTS: There is lucency and loss of cortical margin with discontinuous appearance of bone involving a roughly 1 cm x 0.5 cm focus at the proximal medial aspect of the first distal phalanx, lucency extending immediately adjacent to cortex at the articular surface on the frontal view, with discontinuous appearance on the lateral view suggesting possible pathologic intra-articular fracture. No dislocation. SOFT TISSUES: Soft tissue swelling. No radiopaque foreign body. RAD/Toe(s) Min 2 Views IMPRESSION: Bone destruction with lucency and cortical disruption involving the proximal medial first distal phalanx, consistent with presumed osteomyelitis and are likely septic arthritis. Possibly pathologic fracture. New finding from July 16, 2022. Electronically Signed: Belén Cartagena MD at 6:55 EDT ,
[2022-08-12 12:30] LABS: Absolute Neutrophil Count 5.8 X10^3/uL (2.0-7.7); Basophil# 0.03 X10^3/uL; Basophil% 0.4 % (0-1); Eosinophil# 0.29 X10^3/uL; Eosinophils% 3.7 % (0-5); Hematocrit 35.9 % (40-54); Hemoglobin 11.9 g/dL (13.0-16.5); Lymphocyte % 11.4 % (19-41); Mean Corp Hgb Conc 33.1 g/dL (32-36); Mean Corpuscular Hgb 31.9 pg (27.0-32.0); Mean Corpuscular Volume 96.2 fL (80-94); Mean Platelet Vol. 9.6 fl (6.2-12.0); Monocyte# 0.83 X10^3/uL; Monocyte% 10.5 % (0-10); NRBC Flagged by Analyzer 0 % (0-5); Neutrophil % 73.6 % (47-70); Platelet Count 228 K/mm3 (150-450); RBC Distribution Width CV 12.7 % (11.6-14.6); RBC Distribution Width SD 44.9 fl (35.1-43.9); Red Blood Count 3.73 M/mm3 (4.6-6.2); White Blood Count 7.9 K/mm3 (4.4-11.0)
--- NOTE | 2022-08-12 13:25 | PCM.WC.PN ---
History of Present Illness Date of Service: 08/12/22 Chief Complaint: Left medial hallux wound History of Wound: Patient is a 77-year-old male with PMHx of DM type II with peripheral polyneuropathy, PVD, OA, hyperlipidemia, and PE was on Eliquis. He presents to the wound care center 07/22/2022 for medial left hallux ulceration secondary to self induced iatrogenic trimming of callus. He and his have been caring for the wound at home and had been soaking in Epsom salt however states eschar became soft and the switch to applying a Betadine like drying agent daily to the ulcerative site. He had follow-up with his PCP who placed him on Keflex 500 mg twice a day and after finishing this antibiotic had been placed on Bactrim DS and is currently finishing this antibiotic. He did have lab work done which did not demonstrate elevated ESR at 40 consistent with a local cellulitis. He also had x-rays of the left foot which were negative for osteomyelitis. He was referred to the wound care center for continued follow-up and care of his ulceration. He denies any N/V/F/chills. Denies further complaints. Subjective Subjective This is a 77-year-old male who presents to the wound care center today for follow-up of a left medial hallux ulceration. states they were applying Dakin's however she felt he was not making enough progress and switched to peroxide. He states that he is having a little more tenderness to the ulcer site. Denies constitutional symptoms. Denies further complaints. Objective Data Objective Data Vital Signs: Vital Signs Temp Pulse Resp BP 97.4 F L 100 18 124/70 H 08/12/22 10:49 08/12/22 10:49 08/07/22 01:42 08/12/22 10:49 Weight: 93.894 kg Body Mass Index (BMI) 31.4 Lab / Micro Data 08/12/22 11:55 08/12/22 11:55 Labs: Laboratory Results - last 24 hr 08/12/22 11:55: WBC 7.9, RBC 3.73 L, Hgb 11.9 L, Hct 35.9 L, MCV 96.2 H, MCH 31.9, MCHC 33.1, RDW Std Deviation 44.9 H, RDW Coeff of Bucky 12.7, Plt Count 228, MPV 9.6, Immature Gran % (Auto) 0.400, Neut % (Auto) 73.6 H, Lymph % (Auto) 11.4 L, Gallia % (Auto) 10.5 H, Eos % (Auto) 3.7, Baso % (Auto) 0.4, Absolute Neuts (auto) 5.8, Absolute Lymphs (auto) 0.90, Nucleated RBC % 0 Physical Exam Const alert, oriented x3 and no apparent distress General Appearance: cooperative HEENT normocephalic Eyes General Eye: normal appearance of both eyes Neck General: normal visual inspection Lymph Lymphatic: no lymphadenopathy noted and no lymphedema noted Resp normal respiratory effort Cardio regular rate and regular rhythm Extremity normal capillary refill, no joint enlargement, no calf tenderness and no pedal edema Extremity Narrative: DP and PT pulses nonpalpable bilateral. DP and PT pulses biphasic on Doppler bilateral. Capillary fill time to the digits is sluggish at 7 seconds. Dermatological: Skin is soft, supple, with normal turgor. There is an ulceration noted to the medial aspect of the left hallux secondary to self-induced iatrogenic wound. Ulceration noted to have mixed fibrogranular layer with some hyperkeratosis about the ulcerative rim. Ulcerative site is close to bone without exposure of bone. No drainage noted. There is some localized rubor without increased temperature and slight malodor. No purulent drainage, no palpable fluctuance/bogginess, no visible abscess, no lymphangitic streaking. Musculoskeletal: Muscle strength 5 of 5 age-appropriate. There is decreased ankle range of motion in dorsiflexion with the knee extended without pain or crepitus. There is decreased range of motion of the first metatarsophalangeal joint bilateral without pain or crepitus. Skin no rashes or lesions noted, skin turgor normal and no jaundice Neuro moves all extremities Neuro Narrative: Decreased protective sensation to bilateral foot secondary to diabetic peripheral polyneuropathy Debridement Note Debridement Note Wound debrided: Left medial hallux Laterality: Left Wound Grade/Stage: Horn stage II Type of Debridement: Excisional debridement Anesthesia Used: 5% Lidocaine Gel Depth: Down to and including healthy tissue and in the subcutaneous layer Percentage of wound debrided: 100 Instrument Used: 5mm curette, #15 blade and Forceps Tissue Removed: Fibrous, devitalized subcutaneous, biofilm, slough Severity: Fat Layer Exposed Amount of bleeding with debridement: Mild Bleeding Controlled with: Compression and gauze Patient tolerated procedure: Patient tolerated procedure well Post-Debridement Measurements and Additional Note: Post-Debridement Measurements/Treatment - Nurse 1 - General Ulcer Assessment Start: 08/12/22 10:48 Freq: Status: Active Protocol: FRANCK Activity Type Activity Date Activity User E-sign Co-sign Detail Recorded Client Recorded Date Recorded By Document 08/12/22 10:49 YECENIA [id number] 08/12/22 10:50 YECENIA 08/12/22 10:49 WC - Today's Visit Information Type of service Follow-up Visit (Physician/[employer] REPA[employer]ER ) Arrival Mode Ambulatory Patient Identification Verified (Name & No ) Patient Requires Transmission-Based No Precautions Safety Precautions NA Height and Weight Body Mass Index (BMI) 31.4 BMI Classification Obese Vital Signs Temperature (97.8 F-99.1 F) 97.4 F L Temperature Source Temporal Pulse Rate (60-100) 100 Pulse Location Monitor Blood Pressure (90/60-120/80) 124/70 H Blood Pressure Mean (mm Hg) 88 Source Monitor History Since Last Visit- (Skip if this is Patient's initial visit) Have you changed medications since your No last visit? Any new allergies or adverse reactions No Had a fall/change in ADL's that may No increase risk of falls Signs or symptoms of abuse and/or No neglect since last visit Have you been in the hospital since your Yes last visit? Has dressing in place as prescribed No Has compression in place as prescribed N/A Has offloadiing in place as prescribed N/A Experienced any changes in pain level or No management Left Footwear Regular Shoe Right Footwear Regular Shoe Pain Scale: 0-10 Numeric Is Patient Pain Free? Yes - Nurse 1 - General Ulcer Measurement Start: 08/12/22 10:48 Freq: Status: Active Protocol: Activity Type Activity Date Activity User E-sign Co-sign Detail Recorded Client Recorded Date Recorded By Document 08/12/22 10:49 YECENIA [id number] 08/12/22 10:50 YECENIA 08/12/22 10:49 Wound Center Nurse 1 1-left hallux -Combined with other wound No -Current Size (cm) - Length 2 -Current Size (cm) - Width 1 -Current Size (cm) - Depth 0.1 -Total Square Cm 2 -Photo Taken Yes -Tunneling No -Undermining/Tunneling No -Circular Undermining No -Change in Wound Grade/Stage No -Exudate Amt Small -Exudate Type Serosanguineous -Wound Margin Distinct, Outline Attached -Granulation Amt None Present (0 %) -Granulation Quality N/A -Slough/Fibrin Yes -Necrosis Amt Large (67-100%) -Necrotic Tissue Type Adherent Slough -Structure Exposed N/A -Texture (Yeimi-wound Skin Appearance) Assessed,Callus -Moisture (Yeimi-wound Skin Appearance) No Abnormality, Assessed -Color (Yeimi-wound Skin Appearance) No Abnormality, Assessed -Temperature (Yeimi-wound Skin No Abnormality Appearance) (Pt Warm) -Tenderness on Palpation (Yeimi-wound No Skin Appearance) -Ulcer Cleansing Rinsed/ Irrigated with Saline -Foul Odor after Cleansing No -Anesthetic Used 5% Lidocaine Gel WC - Nurse 2 - General Ulcer CM Notes Start: 08/12/22 10:48 Freq: Status: Active Protocol: Activity Type Activity Date Activity User E-sign Co-sign Detail Recorded Client Recorded Date Recorded By Document 08/12/22 12:08 KARMA [id number] 08/12/22 12:11 PL 08/12/22 12:08 Wound Center Nurse 2 -Time 11:07 -Correct Patient Yes -Correct Side, Site, Position Yes -Correct Procedure Yes -Procedure Performed Yes -Type of Procedure Debridement -Clinical Debridement Subcutaneous -Tissue Removed Subcutaneous -Post Debridement (cm) - Length 1.9 -Post Debridement (cm) - Width 1.5 -Post Debridement (cm) - Depth 0.3 -Total Square (Post) (cm) 2.85 -Area of Debridement (cm) - Length 1.9 -Area of Debridement (cm) - Width 1.5 -Total Square (Area) (cm) 2.85 -Tunneling No -Undermining/Tunneling No -Circular Undermining No -Wound/Ulcer Outcome Not Healed -Ulcer Cleansing Rinsed/ Irrigated with Saline -Foul Odor after Cleansing No -Bioengineered Tissue No -Expiration Date 08/25/23 -Product Lot Number [id number] -Percent Used 100 -Bleeding Controlled with Pressure -Treatment Response Procedure Tolerated Well -Debridement - Subq, 1st 20sq cm No -Apply Skin Sub - 1st 25 sq cm - Feet 1 Pain Scale: 0-10 Numeric Is Patient Pain Free? Yes 08/12/22 12:10 Wound Center by Benito Ma Application of ALLOGraft product was utilizing a sample product Initialized on 08/12/22 12:10 - END OF NOTE WC - Nurse 3 - General Ulcer D/C NN Start: 08/12/22 10:48 Freq: Status: Active Protocol: Activity Type Activity Date Activity User E-sign Co-sign Detail Recorded Client Recorded Date Recorded By Document 08/12/22 11:36 [id number] 08/12/22 11:37 08/12/22 11:36 Wound Care Center Nurse 3 1-left hallux -Ulcer Cleansing Rinsed/ Irrigated with Saline -Primary Dressing Covered/Secured with Dry Gauze & Roll Gauze, Secured with Tape Pain Scale: 0-10 Numeric Is Patient Pain Free? Yes WC - Visit Discharge Discharge Condition Stable Ambulatory Status Ambulatory, Unsteady Medication Reconcilliation completed & No provided to patient/care provider Clinical Summary of Care Provided Yes Assessment/Plan Assessment/Plan (1) Non-pressure chronic ulcer of other part of left foot with fat layer exposed: CODE(S): L97.522 - Non-pressure chronic ulcer of other part of left foot with fat layer exposed (2) Diabetes mellitus with diabetic polyneuropathy: CODE(S): E11.42 - Type 2 diabetes mellitus with diabetic polyneuropathy (3) Claudication of both lower extremities: CODE(S): I73.9 - Peripheral vascular disease, unspecified (4) Osteoarthritis: CODE(S): M19.90 - Unspecified osteoarthritis, unspecified site PLAN: Plan Patient seen and evaluated He does have diminished pedal pulses with nonpalpable DP and PT pulses bilateral. On Doppler DP and PT noted to be biphasic. He does have documented peripheral vascular disease at the pedal level with likely neurogenic ideology. He is following with Dr. Lane last saw 11/12/2021 and was recommended to return in 2 months for follow-up if his claudication continued. Patient did not follow-up. I discussed with him today that it is recommended due to new ulceration to the site he should return for evaluation to ensure healing can be optimized. Patient is diabetic last A1c 8%. Discussed proper diabetic diet today to optimize glycemic control and boost healing status. Discussed he is to not go barefoot, socks include barefoot status. Encouraged shoe gear to be worn at all times. Encouraged daily foot check. Left medial hallux wound secondary to self-induced iatrogenic tissue injury secondary to trying to trim his own callus. Ulceration underwent debridement as noted in the clinical panel above. Ulcerative site measures 1.7 cm x 1.5 cm x 0.3 cm. No signs of infection. Advanced wound care product #1 applied to ulcerative base and dressed with Adaptic touch and anchored with Steri-Strips. Dressed with dry sterile dressing. He is to change the outer dressing as needed. He was instructed to not get the site wet. felt Dakin's solution was not doing enough to progress in wound and thus switched after 2 days to peroxide. I discussed the did not give the Dakin's a chance to work in the peroxide would delay his healing as it is a nondiscriminatory agent that will kill bacteria as well as healthy tissue. He and his were instructed to follow physician direction in accordance to his wound care and not deviate from the plan. I did discuss due to the deviation and treatment of the ulceration has increased in size and depth and is closer to the bone. Discussed risk of osteomyelitis and amputation of the hallux. Discussed ordering updated laboratory studies today, 08/12/2022, which demonstrated WBC 7.9. Discussed updating radiographic imaging of the left hallux today, 08/12/2022 to rule out osteomyelitis, awaiting results. Reminded him to check feet daily. Ulceration demonstrates no change in size versus previous visit and is close to bone without exposure of bone His insurance would deny advanced wound care product approval, however advanced wound care product was donated for use. He did undergo routine work-up for localized cellulitis of his toe on 07/16/2022 which demonstrated WBC WNL, ESR 40. He also underwent radiograph of the left foot which was negative for osteomyelitis. He has taken and completed course of oral Keflex and is currently completing oral course of Bactrim DS. He has finished oral antibiotic to completion. Recommended probiotic, activita to aid in digestive issues secondary to antibiotic. I discussed signs and symptoms of infection that he should observe for. Discussed if he begins to have redness around the ulcerative site that spreads across the toe onto the foot, purulent drainage from the ulcer site, increasing foul odor, or if he experiences fever greater than 101 degree, nausea, vomiting, or chills that these are signs of a progressing infection and he should report to the ED to receive IV antibiotics. He voices understanding of this today. The following work up and care recommendations were made: Dressing: Advanced wound care product/graft, Adaptic touch, Steri-Strips, dry sterile dressing Wash: Do not get wet Tissue growth optimization: Advanced wound care product/graft Offload: Diabetic shoe gear with plantar offloading inserts Vascular: Nonpalpable DP and PT pulses bilateral. DP and PT biphasic on Doppler bilateral. Capillary fill time to the digits greater than 7 seconds. Edema: No edema noted Infection: No signs of infection. Patient currently finishing oral course of Bactrim DS Pain: May take [id number] Tylenol for discomfort Host factors: DM type II with peripheral polyneuropathy, PVD, patient education on self-care. I answered all the patient's questions. To return to the wound healing center in 2 weeks or call sooner if the patient has any questions or concerns.
[2022-08-12 13:47] LABS: ALB/GLOB Ratio 0.8 RATIO (0.9-2.4); AST(SGOT) 21 U/L (15-37); Alanine Aminotransfer ALT/SGPT 26 U/L (16-61); Albumin, Serum 3.7 g/dL (3.2-5.0); Alkaline Phosphatase 75 U/L (45-117); Anion Gap 8 (5-15); BUN 29 mg/dL (7-18); BUN/Creat Ratio 26.6 RATIO (10-20); Calcium,Total 9.5 mg/dL (8.5-10.1); Chloride 105 mmol/L (98-107); Creatinine, Serum 1.09 mg/dL (0.70-1.30); EST Glomerular Filtration Rate 69 mL/min (>60); Est Glom Filt Rate - Afr Amer 84 mL/min (>60); Globulin 4.5 g/dL (2.2-4.2); Glucose 188 mg/dL (74-106); Potassium 4.3 mmol/L (3.5-5.1); Protein, Total 8.2 g/dL (6.4-8.2); Sodium Level 137 mmol/L (136-145)
[2022-08-12 13:58] LABS: Hemoglobin A1c 7.3 % (3.8-5.6)
--- NOTE | 2022-08-26 10:25 | PCM.WC.PN ---
History of Present Illness Date of Service: 08/26/22 Chief Complaint: Left medial hallux wound History of Wound: Patient is a 77-year-old male with PMHx of DM type II with peripheral polyneuropathy, PVD, OA, hyperlipidemia, and PE was on Eliquis. He presents to the wound care center 07/22/2022 for medial left hallux ulceration secondary to self induced iatrogenic trimming of callus. He and his have been caring for the wound at home and had been soaking in Epsom salt however states eschar became soft and the switch to applying a Betadine like drying agent daily to the ulcerative site. He had follow-up with his PCP who placed him on Keflex 500 mg twice a day and after finishing this antibiotic had been placed on Bactrim DS and is currently finishing this antibiotic. He did have lab work done which did not demonstrate elevated ESR at 40 consistent with a local cellulitis. He also had x-rays of the left foot which were negative for osteomyelitis. He was referred to the wound care center for continued follow-up and care of his ulceration. He denies any N/V/F/chills. Denies further complaints. Subjective Subjective This is a 77-year-old male who presents to the wound care center today for follow-up of a left medial hallux ulceration. They did have grafting product in place and return for a dressing change last Tuesday. states that following dressing change wound site did appear to get more red throughout the week and did have odor. Denies constitutional symptoms. Denies further complaints. Objective Data Objective Data Vital Signs: Vital Signs Temp Pulse Resp BP 97.4 F L 100 18 124/70 H 08/12/22 10:49 08/12/22 10:49 08/07/22 01:42 08/12/22 10:49 Weight: 93.894 kg Body Mass Index (BMI) 31.4 Lab / Micro Data 08/12/22 11:55 08/12/22 11:55 Micro: Microbiology 08/24/22 10:15 Wound Abcess - Toe Gram Stain - Final 08/24/22 10:15 Wound Abcess - Toe Wound Culture - Preliminary Klebsiella pneumoniae ozaenae Gram positive organism Gram positive adrian 08/24/22 10:15 Wound Abcess - Toe Anaerobic Culture - Preliminary Checking for anaerobes, further studies to follow. Physical Exam Const alert, oriented x3 and no apparent distress General Appearance: cooperative HEENT normocephalic Eyes General Eye: normal appearance of both eyes Neck General: normal visual inspection Lymph Lymphatic: no lymphadenopathy noted and no lymphedema noted Resp normal respiratory effort Cardio regular rate and regular rhythm Extremity normal capillary refill, no joint enlargement, no calf tenderness and no pedal edema Extremity Narrative: DP and PT pulses nonpalpable bilateral. DP and PT pulses biphasic on Doppler bilateral. Capillary fill time to the digits is sluggish at 7 seconds. Dermatological: Skin is soft, supple, with normal turgor. There is an ulceration noted to the medial aspect of the left hallux secondary to self-induced iatrogenic wound. Ulceration noted to have mixed fibrogranular layer with evidence of necrosis with some hyperkeratosis about the ulcerative rim. Ulcerative site is close to bone without exposure of bone. No drainage noted. There is some localized rubor with increased temperature and slight malodor. Tissue is firm to palpation. No purulent drainage, no palpable fluctuance/bogginess, no visible abscess, no lymphangitic streaking. Musculoskeletal: Muscle strength 5 of 5 age-appropriate. There is decreased ankle range of motion in dorsiflexion with the knee extended without pain or crepitus. There is decreased range of motion of the first metatarsophalangeal joint bilateral without pain or crepitus. Skin no rashes or lesions noted, skin turgor normal and no jaundice Neuro moves all extremities Neuro Narrative: Decreased protective sensation to bilateral foot secondary to diabetic peripheral polyneuropathy Debridement Note Debridement Note No debridement was completed: No debridement was completed today Post-Debridement Measurements and Additional Note: Post-Debridement Measurements/Treatment - Nurse 1 - General Ulcer Assessment Start: 08/12/22 10:48 Freq: Status: Active Protocol: WC.LOWEXT Activity Type Activity Date Activity User E-sign Co-sign Detail Recorded Client Recorded Date Recorded By Document 08/12/22 10:49 YECENIA [id number] 08/12/22 10:50 YECENIA 08/12/22 10:49 - Today's Visit Information Type of service Follow-up Visit (Physician/[employer] ) Arrival Mode Ambulatory Patient Identification Verified (Name & No ) Patient Requires Transmission-Based No Precautions Safety Precautions NA Height and Weight Body Mass Index (BMI) 31.4 BMI Classification Obese Vital Signs Temperature (97.8 F-99.1 F) 97.4 F L Temperature Source Temporal Pulse Rate (60-100) 100 Pulse Location Monitor Blood Pressure (90/60-120/80) 124/70 H Blood Pressure Mean (mm Hg) 88 Source Monitor History Since Last Visit- (Skip if this is Patient's initial visit) Have you changed medications since your No last visit? Any new allergies or adverse reactions No Had a fall/change in ADL's that may No increase risk of falls Signs or symptoms of abuse and/or No neglect since last visit Have you been in the hospital since your Yes last visit? Has dressing in place as prescribed No Has compression in place as prescribed N/A Has offloadiing in place as prescribed N/A Experienced any changes in pain level or No management Left Footwear Regular Shoe Right Footwear Regular Shoe Pain Scale: 0-10 Numeric Is Patient Pain Free? Yes WC - Nurse 1 - General Ulcer Measurement Start: 08/12/22 10:48 Freq: Status: Active Protocol: Activity Type Activity Date Activity User E-sign Co-sign Detail Recorded Client Recorded Date Recorded By Document 08/12/22 10:49 YECENIA [id number] 08/12/22 10:50 YECENIA 08/12/22 10:49 Wound Center Nurse 1 1-left hallux -Combined with other wound No -Current Size (cm) - Length 2 -Current Size (cm) - Width 1 -Current Size (cm) - Depth 0.1 -Total Square Cm 2 -Photo Taken Yes -Tunneling No -Undermining/Tunneling No -Circular Undermining No -Change in Wound Grade/Stage No -Exudate Amt Small -Exudate Type Serosanguineous -Wound Margin Distinct, Outline Attached -Granulation Amt None Present (0 %) -Granulation Quality N/A -Slough/Fibrin Yes -Necrosis Amt Large (67-100%) -Necrotic Tissue Type Adherent Slough -Structure Exposed N/A -Texture (Yeimi-wound Skin Appearance) Assessed,Callus -Moisture (Yeimi-wound Skin Appearance) No Abnormality, Assessed -Color (Yeimi-wound Skin Appearance) No Abnormality, Assessed -Temperature (Yeimi-wound Skin No Abnormality Appearance) (Pt Warm) -Tenderness on Palpation (Yeimi-wound No Skin Appearance) -Ulcer Cleansing Rinsed/ Irrigated with Saline -Foul Odor after Cleansing No -Anesthetic Used 5% Lidocaine Gel - Nurse 2 - General Ulcer CM Notes Start: 08/12/22 10:48 Freq: Status: Active Protocol: Activity Type Activity Date Activity User E-sign Co-sign Detail Recorded Client Recorded Date Recorded By Document 08/12/22 12:08 PL [id number] 08/12/22 12:11 PL 08/12/22 12:08 Wound Center Nurse 2 -Time 11:07 -Correct Patient Yes -Correct Side, Site, Position Yes -Correct Procedure Yes -Procedure Performed Yes -Type of Procedure Debridement -Clinical Debridement Subcutaneous -Tissue Removed Subcutaneous -Post Debridement (cm) - Length 1.9 -Post Debridement (cm) - Width 1.5 -Post Debridement (cm) - Depth 0.3 -Total Square (Post) (cm) 2.85 -Area of Debridement (cm) - Length 1.9 -Area of Debridement (cm) - Width 1.5 -Total Square (Area) (cm) 2.85 -Tunneling No -Undermining/Tunneling No -Circular Undermining No -Wound/Ulcer Outcome Not Healed -Ulcer Cleansing Rinsed/ Irrigated with Saline -Foul Odor after Cleansing No -Bioengineered Tissue No -Expiration Date 08/25/23 -Product Lot Number [id number] -Percent Used 100 -Bleeding Controlled with Pressure -Treatment Response Procedure Tolerated Well -Debridement - Subq, 1st 20sq cm No -Apply Skin Sub - 1st 25 sq cm - Feet 1 Pain Scale: 0-10 Numeric Is Patient Pain Free? Yes 08/12/22 12:10 Wound Center by Benito Ma Application of ALLOGraft product was utilizing a sample product Initialized on 08/12/22 12:10 - END OF NOTE - Nurse 3 - General Ulcer D/C NN Start: 08/12/22 10:48 Freq: Status: Active Protocol: Activity Type Activity Date Activity User E-sign Co-sign Detail Recorded Client Recorded Date Recorded By Document 08/12/22 11:36 KW [id number] 08/12/22 11:37 KW 08/12/22 11:36 Wound Care Center Nurse 3 1-left hallux -Ulcer Cleansing Rinsed/ Irrigated with Saline -Primary Dressing Covered/Secured with Dry Gauze & Roll Gauze, Secured with Tape Pain Scale: 0-10 Numeric Is Patient Pain Free? Yes WC - Visit Discharge Discharge Condition Stable Ambulatory Status Ambulatory, Unsteady Medication Reconcilliation completed & No provided to patient/care provider Clinical Summary of Care Provided Yes Assessment/Plan Assessment/Plan (1) Non-pressure chronic ulcer of other part of left foot with fat layer exposed: CODE(S): L97.522 - Non-pressure chronic ulcer of other part of left foot with fat layer exposed (2) Diabetes mellitus with diabetic polyneuropathy: CODE(S): E11.42 - Type 2 diabetes mellitus with diabetic polyneuropathy (3) Claudication of both lower extremities: CODE(S): I73.9 - Peripheral vascular disease, unspecified (4) Osteoarthritis: CODE(S): M19.90 - Unspecified osteoarthritis, unspecified site PLAN: Plan Patient seen and evaluated He does have diminished pedal pulses with nonpalpable DP and PT pulses bilateral. On Doppler DP and PT noted to be biphasic. He does have documented peripheral vascular disease at the pedal level with likely neurogenic ideology. He is following with Dr. Lane last saw 11/12/2021 and was recommended to return in 2 months for follow-up if his claudication continued. Patient did not follow-up. I discussed with him today that it is recommended due to new ulceration to the site he should return for evaluation to ensure healing can be optimized. Patient is diabetic with A1c 8%, this is recently improved to 7.3%. Discussed proper diabetic diet today to optimize glycemic control and boost healing status. Discussed he is to not go barefoot, socks include barefoot status. Encouraged shoe gear to be worn at all times. Encouraged daily foot check. He did undergo routine work-up for localized cellulitis of his toe on 07/16/2022 which demonstrated WBC WNL, ESR 40. He also underwent radiograph of the left foot which was negative for osteomyelitis. He has taken and completed course of oral Keflex and is currently completing oral course of Bactrim DS. He has finished oral antibiotic to completion. Recommended probiotic, activita to aid in digestive issues secondary to antibiotic. felt Dakin's solution was not doing enough to progress in wound and thus switched after 2 days to peroxide. I discussed the did not give the Dakin's a chance to work in the peroxide would delay his healing as it is a nondiscriminatory agent that will kill bacteria as well as healthy tissue. He and his were instructed to follow physician direction in accordance to his wound care and not deviate from the plan. I did discuss due to the deviation and treatment of the ulceration has increased in size and depth and is closer to the bone. Discussed risk of osteomyelitis and amputation of the hallux. Discussed ordering updated laboratory studies, 08/12/2022, which demonstrated WBC 7.9. Discussed updating radiographic imaging of the left hallux, 08/12/2022 to rule out osteomyelitis. Left medial hallux wound secondary to self-induced iatrogenic tissue injury secondary to trying to trim his own callus. Ulceration did not undergo debridement today. Ulcerative site measures 3 cm cm x 2.5 cm x 0.4 cm. There is increased in size versus previous visit with evidence of tissue necrosis along the medial aspect of the left hallux in addition to exposure of tendon along the medial and dorsal medial aspect of the left hallux. There is erythema about the hallux and wound site. Tissue is firm to palpation with malodor. No purulent drainage. A dry sterile dressing was placed over the wound site today. He did return for nurse visit for change of dressing last Tuesday and at that time a culture was obtained due to some erythema about the wound margin. Today on examination I have discussed with them that the wound has worsened from previous visit with increasing tissue necrosis. I discussed the radiographic imaging with them today from 08/12/2022 as stated below. Radiographic imaging obtained from 08/12/2022 demonstrates lucency across the cortical margin with discontinuous appearance of bone involving a roughly 1 cm x 0.5 cm focus at the proximal medial aspect of the distal phalanx of the hallux, lucency extending immediately adjacent to the cortex at the articular surface on the frontal view with discontinuous appearance on the lateral view suggesting possible pathologic intra-articular fracture. No dislocation. Soft tissue swelling. An addendum was made to the note demonstrating bone destruction with lucency and cortical disruption involving proximal medial first distal phalanx, consistent with presumed osteomyelitis versus possibly pathologic fracture. I have reviewed these radiographic images and agree that there is likely osteomyelitis involving the distal phalanx of the hallux. Ulceration demonstrates increased change in size versus previous visit and is close to bone with tissue necrosis and exposure of tendon along medial and dorsomedial aspect. I discussed the results of his radiographic imaging in addition to worsening of the wound today. I reviewed the culture results from 08/24/2022 demonstrating Klebsiella pneumoniae, gram-positive organism, and gram-positive adrian. I further discussed that he needs to go to ED for admission and to receive IV antibiotics in addition to performing amputation of the left hallux. Answered all questions in detail to the patient and patient's . I had previously discussed with them signs and symptoms of infection that he should observe for. Discussed if he begins to have redness around the ulcerative site that spreads across the toe onto the foot, purulent drainage from the ulcer site, increasing foul odor, or if he experiences fever greater than 101 degree, nausea, vomiting, or chills that these are signs of a progressing infection and he should report to the ED to receive IV antibiotics. He voices understanding of this today. The following work up and care recommendations were made: Dressing: Dry sterile dressing Wash: Do not get wet Tissue growth optimization: None Offload: Diabetic shoe gear with plantar offloading inserts Vascular: Nonpalpable DP and PT pulses bilateral. DP and PT biphasic on Doppler bilateral. Capillary fill time to the digits greater than 7 seconds. Edema: No edema noted Infection: No signs of infection. Patient previously finished oral course of Bactrim DS per his PCP Pain: May take [id number] Tylenol for discomfort Host factors: DM type II with peripheral polyneuropathy, PVD, patient education on self-care. 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
[2022-08-26 11:08] VITALS: BP 147/66; PULSE 73; TEMP 36.2; BMI 31.4
== END 2022-09-06 23:59 | disposition home or self-care (01) ==
LOC: WC 10:30
PROVIDERS: PCP Family Medicine; Referring Provider Family Medicine; Visit Provider Student in an Organized Health Care Education/Training Program
DX: L97.522 Non-pressure chronic ulcer of other part of left foot with fat layer exposed (principal); E11.51 Type 2 diabetes mellitus with diabetic peripheral angiopathy without gangrene; E11.42 Type 2 diabetes mellitus with diabetic polyneuropathy; S99.82 Other specified injuries of foot; W26.8XXS Contact with other sharp object(s), not elsewhere classified, sequela; E78.5 Hyperlipidemia, unspecified; M19.90 Unspecified osteoarthritis, unspecified site; Z79.84 Long term (current) use of oral hypoglycemic drugs; Z79.899 Other long term (current) drug therapy
CPT/HCPCS: 15275; 36415; 73660; 80053; 83036; 85025; 87070; 87075; 87077; 87186; 87205; 99213; G0463

== ENCOUNTER 2022-08-26 11:32 | Inpatient (IN) | payer MEDICARE, SELFPAY ==
[2022-08-26] VITALS (7 sets, daily range): BP systolic 134–181; BP diastolic 60–88; PULSE 58–73; RESP 17–18; TEMP 36–36.5; O2SAT 97–100; BMI 31.9; BMI 30.8
--- NOTE | 2022-08-26 11:49 | EDS_ITS ---
HPI <CAROLYNN Verma - Last Filed: 08/26/22 12:49> History of Present Illness Chief Complaint: Wound Narrative Narrative: 77-year-old male with PMH of DM2 with peripheral neuropathy, HLD, PVD, PE was sent here by Dr. Carpio at the wound center for a nonhealing left great toe ulceration that needs amputation. He trimmed his callus on the toe in June and since then had a wound that got worse. Initially he was on Keflex and Bactrim with no improvement. Wound continues to enlarge and has redness and pain. Denies drainage. He states he had an x-ray recently that showed osteomyelitis. Today he went to the wound center and saw Dr. Carpio and was sent here for admission. Patient states he is on oral medication for diabetes. He has no longer on Eliquis and was previously on this for PE attributed to COVID-19. PFSH <CAROLYNN Verma - Last Filed: 08/26/22 12:49> PFSH Medical History COVID-19 Diabetes mellitus Esophageal reflux Family history of hemochromatosis Mixed hyperlipidemia EDILIA on CPAP Osteoarthritis Prostate CA Pulmonary embolism Sebaceous cyst Sleep apnea Type 2 diabetes mellitus Home Medications sertraline 100 mg tablet 100 mg PO DAILY 05/02/20 [History Last Taken 08/25/22] metformin 500 mg tablet 500 mg PO BID 09/22/21 [History Last Taken 08/25/22] glimepiride 4 mg tablet 4 mg PO DAILY 11/12/21 [History Last Taken 08/25/22] Allergy/AdvReac Type Severity Reaction Status Date / Time No Known Allergies Allergy Verified 08/26/22 11:33 Family History Brother Hemochromatosis Sister Hemochromatosis Brother Heart disease Surgical History History of left hip replacement History of right hip replacement History of tonsillectomy and adenoidectomy Social History Smoking Status: Never smoker alcohol intake: never substance use type: does not use caffeine: Yes Type: coffee Number of servings: 1 ROS <CAROLYNN Verma - Last Filed: 08/26/22 12:49> ROS ED ROS Narrative Constitutional: Negative for fever, chills, malaise. GI: Negative for nausea, vomiting. Neuro: Negative for motor/sensory dysfunction. Skin: Positive for wound. Musc: Negative for joint pain. EXAM <CAROLYNN Verma Last Filed: 08/26/22 12:49> Physical Exam Narrative Exam Narrative: CONST: Patient sitting in no acute distress. EYES: Normal inspection. NECK: Normal inspection. RESP: No respiratory distress, CTAB. CVS: Regular rate and rhythm, no murmur, no gallop. SKIN: Color normal, no rash, warm, dry, intact. EXTREMITIES: Left great toe medial hallux has 3 x 2.5 cm ulceration with visible tendon. Surrounding great toe is red and firm to touch. Foul odor, no fluctuance or drainage. No palpable pulses at DP/PT but they are present with d oppler. Full ROM of the lower extremity, compartments soft. NEURO: Oriented x4. PSYCH: Normal affect. Const Vital Signs: 08/26/22 11:33 08/26/22 12:11 08/26/22 12:11 Temperature 97.0 F L 97.7 F L Temperature Source Temporal Temporal Pulse Rate 63 67 67 Respiratory Rate 18 18 18 Blood Pressure 181/68 H 161/82 H 161/82 H Blood Pressure Mean 105 108 108 Pulse Ox 99 100 100 Oxygen Delivery Method Room Air Room Air Room Air <Dr. Marcus Cantrell DO - Last Filed: 08/26/22 12:15> Physical Exam Const Vital Signs: 08/26/22 11:33 08/26/22 12:11 08/26/22 12:11 Temperature 97.0 F L 97.7 F L Temperature Source Temporal Temporal Pulse Rate 63 67 67 Respiratory Rate 18 18 18 Blood Pressure 181/68 H 161/82 H 161/82 H Blood Pressure Mean 105 108 108 Pulse Ox 99 100 100 Oxygen Delivery Method Room Air Room Air Room Air MDM <CAROLYNN Verma - Last Filed: 08/26/22 12:49> MDM MDM Narrative Medical decision making narrative: History gathered from: Patient and Patient has left great toe medial hallux ulceration that appears necrotic and there is visible tendon. He was sent here by the wound center for osteomyelitis and admission for amputation. Patient denies systemic symptoms. He appears well and nontoxic. Vital signs are stable. Left lower extremity does not have palpable pulses but DP is present with Doppler. Blood work and preop labs will be obtained and case discussed with the hospitalist. Case was discussed with Dr. Wolfe who is aware of patient. Labs show white count of 10.8, hemoglobin 11.7 is baseline. Glucose is 193, otherwise unremarkable BMP. CRP 56.8, ESR 32. Patient had an x-ray recently that showed osteomyelitis so I did not repeat imaging. Patient admitted in stable condition. External records reviewed: Reviewed Dr. Carpio's wound center note from this morning for details. X-ray of the left toes on 08/12/2022 shows bony destruction of proximal medial first distal phalanx consistent with osteomyelitis. Wound culture from 08/24 shows Klebsiella pneumoniae ozaenae, gram-positive adrian Consults: Dr Wolfe in podiatry, hospitalist EKG: Sinus rate of 62, no ST changes, isolated T wave version aVL. Attending note: Patient seen and evaluated with coal shoveler. I perform my own [id number] evaluation. I agree with the plan of work-up. Sent in from wound care for admission and likely amputation left great toe. History of diabetes. Initial wound early June after trimming callus. He is on antibiotics last time a month ago. He is following wound care last seen 2 weeks ago states had x-rays done. Follow-up today, more swelling. There is concerns for osteomyelitis from x-ray. He was sent here for admission for likely surgical intervention. Week ago he states he had chills and fevers. It resolved after 1 day. He reports previous on Eliquis for PE, is currently not on this. Examination left foot wound to the base of the toe with eschar, soft tissue exposure, there is swelling the whole great toe. Mild erythema of the distal foot. Examination x- ray does confirm osteomyelitis. Sepsis labs were obtained, ESR CRP. IV antibiotics will be started. Will discuss with hospital service and podiatry for admission. Lab Data Attestation: I reviewed the patient's lab results. Labs: Laboratory Results - last 24 hr 08/26/22 12:00 WBC 10.8 RBC 3.70 L Hgb 11.7 L Hct 35.4 L MCV 95.7 H MCH 31.6 MCHC 33.1 RDW Std Deviation 42.0 RDW Coeff of Bucky 12.1 Plt Count 303 MPV 9.3 Immature Gran % (Auto) 1.300 H Neut % (Auto) 73.2 H Lymph % (Auto) 13.4 L [place] % (Auto) 8.5 Eos % (Auto) 3.1 Baso % (Auto) 0.5 Absolute Neuts (auto) 7.9 H Absolute Lymphs (auto) 1.44 Nucleated RBC % 0 ESR 32 H PT 13.4 INR 1.0 Sodium 137 Potassium 4.6 Chloride 104 Carbon Dioxide 27.0 Anion Gap 6 BUN 33 H Creatinine 1.00 Estim Creat Clear Calc 57.95 Est GFR (MDRD) Af Amer 93 Est GFR (MDRD) Non-Af 77 BUN/Creatinine Ratio 33.1 H Glucose 193 H Calcium 9.7 C-React Prot Ext Range 56.80 H <Dr. Marcus Cantrell, DO - Last Filed: 08/26/22 12:15> MDM MDM Narrative Medical decision making narrative: History gathered from: Patient and Patient has left great toe medial hallux ulceration that appears necrotic and there is visible tendon. He was sent here by the wound center for osteomyelitis and admission for amputation. Patient denies systemic symptoms. He appears well and nontoxic. Vital signs are stable. Left lower extremity does not have palpable pulses but DP is present with Doppler. Blood work and preop labs will be obtained and case discussed with the hospitalist. Case was discussed with Dr. Wolfe who is aware of patient. External records reviewed: Reviewed Dr. Carpio's wound center note from this morning for details. X-ray of the left toes on 08/12/2022 shows bony destruction of proximal medial first distal phalanx consistent with osteomyelitis. Wound culture from 08/24 shows Klebsiella pneumoniae ozaenae, gram-positive adrian Consults: Dr Wolfe in podiatry, hospitalist EKG: Sinus rate of 62, no ST changes, isolated T wave version aVL. Attending note: Patient seen and evaluated with coal shoveler. I perform my own [id number] evaluation. I agree with the plan of work-up. Sent in from wound care for admission and likely amputation left great toe. History of diabetes. Initial wound early June after trimming callus. He is on antibiotics last time a month ago. He is following wound care last seen 2 weeks ago states had x-rays done. Follow-up today, more swelling. There is concerns for osteomyelitis from x-ray. He was sent here for admission for likely surgical intervention. Week ago he states he had chills and fevers. It resolved after 1 day. He reports previous on Eliquis for PE, is currently not on this. Examination left foot wound to the base of the toe with eschar, soft tissue exposure, there is swelling the whole great toe. Mild erythema of the distal foot. Examination x- ray does confirm osteomyelitis. Sepsis labs were obtained, ESR CRP. IV antibiotics will be started. Will discuss with hospital service and podiatry for admission. Lab Data Labs: Laboratory Results - last 24 hr 08/26/22 12:00 WBC 10.8 RBC 3.70 L Hgb 11.7 L Hct 35.4 L MCV 95.7 H MCH 31.6 MCHC 33.1 RDW Std Deviation 42.0 RDW Coeff of Bucky 12.1 Plt Count 303 MPV 9.3 Immature Gran % (Auto) 1.300 H Neut % (Auto) 73.2 H Lymph % (Auto) 13.4 L [place]inch % (Auto) 8.5 Eos % (Auto) 3.1 Baso % (Auto) 0.5 Absolute Neuts (auto) 7.9 H Absolute Lymphs (auto) 1.44 Nucleated RBC % 0 ESR 32 H PT 13.4 INR 1.0 Sodium 137 Potassium 4.6 Chloride 104 Carbon Dioxide 27.0 Anion Gap 6 BUN 33 H Creatinine 1.00 Estim Creat Clear Calc 57.95 Est GFR (MDRD) Af Amer 93 Est GFR (MDRD) Non-Af 77 BUN/Creatinine Ratio 33.1 H Glucose 193 H Calcium 9.7 C-React Prot Ext Range 56.80 H Discharge Plan Triage Chief Complaint: Wound ED Midlevel Provider: Mirtha Blevins ED Provider: Marcus Cantrell Dx/Rx/DC Orders Clinical Impression: Osteomyelitis of great toe of left foot, History of diabetes mellitus, type II Prescriptions: No Action metformin 500 mg tablet 500 mg PO BID glimepiride 4 mg tablet 4 mg PO DAILY Patient Comments: PT STATES TAKES 1/2 TABLET BUT UNSURE OF STRENGTH sertraline 100 MG tablet 100 mg PO DAILY Primary Care Provider: Isela King Referrals: Isela King DO [Primary Care Provider] -
--- NOTE | 2022-08-26 11:52 | NURSING ---
NO OLD EKGS
--- NOTE | 2022-08-26 12:03 | NURSING ---
HOSPITALIST PAGED DR HERZOG PAGED
[2022-08-26 12:28] LABS: Anion Gap 6 (5-15); BUN 33 mg/dL (7-18); BUN/Creat Ratio 33.1 RATIO (10-20); Calcium,Total 9.7 mg/dL (8.5-10.1); Chloride 104 mmol/L (98-107); EST Glomerular Filtration Rate 77 mL/min (>60); Est Glom Filt Rate - Afr Amer 93 mL/min (>60); Estimated Creatinine Clearance 57.95 ml/min; Glucose 193 mg/dL (74-106); Potassium 4.6 mmol/L (3.5-5.1); Sodium Level 137 mmol/L (136-145)
[2022-08-26 12:30] LABS: Prothrombin Time (Protime)PT. 13.4 SECONDS (11.7-14.9)
[2022-08-26 12:37] LABS: Erythrocyte Sedimentation Rate 32 mm/hr (0-20)
[2022-08-26 12:40] LABS: Absolute Lymphocyte Count 1.44 X10^3/uL (0.83-4.51); Absolute Neutrophil Count 7.9 X10^3/uL (2.0-7.7); Basophil# 0.05 X10^3/uL; Basophil% 0.5 % (0-1); Eosinophil# 0.33 X10^3/uL; Eosinophils% 3.1 % (0-5); Hematocrit 35.4 % (40-54); Hemoglobin 11.7 g/dL (13.0-16.5); Lymphocyte # 1.44 X10^3/ul (0.83-4.51); Lymphocyte % 13.4 % (19-41); Mean Corp Hgb Conc 33.1 g/dL (32-36); Mean Corpuscular Hgb 31.6 pg (27.0-32.0); Mean Corpuscular Volume 95.7 fL (80-94); Mean Platelet Vol. 9.3 fl (6.2-12.0); Monocyte# 0.92 X10^3/uL; Monocyte% 8.5 % (0-10); NRBC Flagged by Analyzer 0 % (0-5); Neutrophil % 73.2 % (47-70); Platelet Count 303 K/mm3 (150-450); RBC Distribution Width CV 12.1 % (11.6-14.6); White Blood Count 10.8 K/mm3 (4.4-11.0)
[2022-08-26 12:56] LABS: Lactic Acid 0.9 mmol/L (0.4-1.9)
--- NOTE | 2022-08-26 12:56 | PCM.HP.STD ---
HPI - General General Date of Admission: 08/26/22 Date of Service: 08/26/22 Chief Complaint: Left great toe infection HPI Narrative TALON NUNES, is a 77 M with a history of type II but diabetes mellitus, PE after COVID no longer on Eliquis, EDILIA on CPAP, left great toe wound who presented to [facility] 08/28/2022 from the wound clinic for osteomyelitis of his left great toe. He has had a left great toe wound for a period of time and had been following weekly and had been on antibiotics and had supportive care. 2 weeks ago he had an x-ray and this was found to have resulted as osteomyelitis. He was seen in clinic today and his wound has worsened and he has cellulitic changes and foul smell and he was sent to the hospital for admission and surgical evaluation. Hospitalist consulted for admission. Patient seen with significant other at bedside. They report that the toe has been worsening over period of weeks and he had been having significant pain middle of last week that gradually improved and yesterday he was feeling fairly well. Today he went for evaluation and given the osteomyelitis and cellulitis he was sent to the ED. He denies fevers or chills or any other systemic or other medical complaints. [facility] Medical History COVID-19 Diabetes mellitus Esophageal reflux Family history of hemochromatosis Mixed hyperlipidemia EDILIA on CPAP Osteoarthritis Prostate CA Pulmonary embolism Sebaceous cyst Sleep apnea Type 2 diabetes mellitus Home Medications sertraline 100 mg tablet 100 mg PO DAILY 05/02/20 [History Last Taken 08/25/22] metformin 500 mg tablet 500 mg PO BID 09/22/21 [History Last Taken 08/25/22] glimepiride 4 mg tablet 4 mg PO DAILY 11/12/21 [History Last Taken 08/25/22] Allergy/AdvReac Type Severity Reaction Status Date / Time No Known Allergies Allergy Verified 08/26/22 11:33 Family History Brother Hemochromatosis Sister Hemochromatosis Brother Heart disease Surgical History History of left hip replacement History of right hip replacement History of tonsillectomy and adenoidectomy Social History Smoking Status: Never smoker alcohol intake: never substance use type: does not use caffeine: Yes Type: coffee Number of servings: 1 ROS ROS Narrative General: Denies fever/chills HENT: Denies headache, denies stuffy nose, denies sore throat EYES: Denies changes in vision Resp: Denies cough, denies shortness of breath Cardiac: Denies chest pain GI: Denies abdominal pain, denies changes in bowel, denies nausea/vomiting : Denies changes in urination Extremity: Denies swelling MSK: Denies weakness Neuro: Denies any numbness/tingling Heme: Denies any bleeding or bruising Skin: Has erythema and necrosis on left great toe Psychiatric: No complaints voiced Vital Signs Vital Signs Vital Signs: 08/26/22 11:33 08/26/22 12:11 08/26/22 12:11 Temperature 97.0 F L 97.7 F L Temperature Source Temporal Temporal Pulse Rate 63 67 67 Respiratory Rate 18 18 18 Blood Pressure 181/68 H 161/82 H 161/82 H Blood Pressure Mean 105 108 108 Pulse Ox 99 100 100 Oxygen Delivery Method Room Air Room Air Room Air Weight Weight: 95.254 kg Body Mass Index (BMI) 31.9 Physical Exam Narrative General: Alert, oriented, no apparent distress HEENT: Atraumatic, normocephalic Eyes: Anicteric, normal conjunctiva, extraocular movements grossly intact Neck: Supple Respiratory: Clear to auscultation bilaterally, normal respiratory effort Cardiovascular: Regular rate and rhythm GI: Soft, nontender, nondistended Extremities: No edema Musculoskeletal: Moving all extremities Neuro: No overt focal neurological deficits Skin: Left great toe erythematous and has necrotic and foul-smelling area over outer aspect Psych: Cooperative Results Lab / Micro Data 08/26/22 12:00 08/26/22 12:00 Labs: Laboratory Results - last 24 hr 08/26/22 12:00: WBC 10.8, RBC 3.70 L, Hgb 11.7 L, Hct 35.4 L, MCV 95.7 H, MCH 31.6, MCHC 33.1, RDW Std Deviation 42.0, RDW Coeff of Bucky 12.1, Plt Count 303, MPV 9.3, Immature Gran % (Auto) 1.300 H, Neut % (Auto) 73.2 H, Lymph % (Auto) 13.4 L, [place] % (Auto) 8.5, Eos % (Auto) 3.1, Baso % (Auto) 0.5, Absolute Neuts (auto) 7.9 H, Absolute Lymphs (auto) 1.44, Nucleated RBC % 0, ESR 32 H, PT 13.4, INR 1.0, Sodium 137, Potassium 4.6, Chloride 104, Carbon Dioxide 27.0, Anion Gap 6, BUN 33 H, Creatinine 1.00, Estim Creat Clear Calc 57.95, Est GFR (MDRD) Af Amer 93, Est GFR (MDRD) Non-Af 77, BUN/Creatinine Ratio 33.1 H, Glucose 193 H, Calcium 9.7, C-React Prot Ext Range 56.80 H Assessment & Plan Assessment/Plan (1) Osteomyelitis of great toe of left foot: (2) History of diabetes mellitus, type II: (3) EDILIA on CPAP: PLAN: Plan #Osteomyelitis of L great toe -Seen on plain film x-ray -Additionally has some surrounding cellulitis -No elevation white blood cell count but there is a left shift, CRP is 56.8 -Blood cultures obtained, wound culture from 08/24 growing Klebsiella and a gram-positive organism and gram-positive adrian that have yet to speciate -Broad spectrum abx -Pod c/s -wound care c/s -NPO -Gentle hydration -Pain control #Type 2 diabetes mellitus -Glucose checks and sliding scale insulin -Hold home oral hypoglycemics -A1c on 08/12/2022 was 7.3 #EDILIA -CPAP nightly #Macrocytic anemia -Present over the past month with no values until a year prior to that -Can undergo outpatient work-up if applicable -At this time is stable #DVT ppx: SCDs Babs Lawrence MD Time spent in the patient's overall evaluation,decision-making process, review of diagnostic data, adjustment of management, discussion with other providers, nursing nursing and ancillary staff involved in patient's care documentation, 60 minutes Charges/Coding Visit Charges Inpatient E&M: 37374 Init Hosp L2
--- NOTE | 2022-08-26 13:10 | NURSING ---
MED SURG DAN OSTEOMYELITIS LEFT GREAT TOE
--- NOTE | 2022-08-26 13:56 | ART_ITS ---
Reason For Study: ULCER Procedure A bilateral lower extremity continuous wave Doppler with analog waveform analysis,segmental pressures,and ankle brachial indexes without exercise. Left Segmental Pressures Left brachial= 155mmHg. Left thigh = >254mmHg. Left calf = >254mmHg. Left posterior tibial artery = >254mmHg. Left dorsalis pedis artery = 148mmHg. The left posterior tibial artery waveforms are biphasic. The left dorsalis pedis waveforms are triphasic. Right Segmental Pressures Right brachial= 156mmHg. Right thigh = >254mmHg. Right calf = >254mmHg. Right posterior tibial artery = >254mmHg. Right dorsalis pedis artery = 141mmHg. The right posterior tibial artery waveforms are triphasic. The right dorsalis pedis waveforms are triphasic. Indices The right resting ankle brachial index is 0.90. The right ankle brachial index by the posterior tibial artery is -NC-. The right ankle brachial index by the dorsalis pedis is 0.90. The left resting ankle brachial index is 0.95. The left ankle brachial index by the posterior tibial artery is -NC-. The left ankle brachial index by the dorsalis pedis is 0.95. VL/Lower Ext Art Exam w/o Exercis Interpretation Summary Right ATUL 0.9, mild arterial insufficiency. Doppler/PVR waveforms mildly dimini shed distal SFA/popliteal. Left ATUL 0.95, mild arterial insufficiency. Doppler/PVR waveforms mildly dimini shed distal SFA/popliteal. Unable to assess LT GRT TOE due to all toes in fresh bandages. Ordering Physician: Andrés Wolfe Referring Physician: Isela King Performed By: Amy Villarreal RVT, RDCS
--- NOTE | 2022-08-26 14:09 | CON.PCM_ITS ---
Assessment & Plan Assessment/Plan (1) History of diabetes mellitus, type II: PLAN: Exam performed Patient vitally stable(some hypertension), no leukocytosis Wound cultures taken in the ER Patient is poorly controlled diabetic with neuropathy and microvascular disease at minimum. MRI ordered to delineate amputation planning Arterial studies ordered to evaluate for healing potential Dressing will be wrapped with Betadine paint DSD Patient should remain nonweightbearing to left lower extremity We will plan for left partial first ray amputation 08/27/2022 Discussed risks and benefits of procedure including additional potential treatments Discussed possibility of patient amputation site not healing as he has the same risk factors that led to a nonhealing chronic left foot ulceration We will continue to follow closely (2) Osteomyelitis of great toe of left foot: (3) Non-pressure chronic ulcer of other part of left foot with fat layer exposed: (4) Osteomyelitis of foot, left, acute: HPI Consult Data Date of Consult: 08/26/22 HPI Narrative HPI Narrative: TALON NUNES, is a 77 M who presents with a gangrenous left great toe. Patient was sent over from the wound care center due to worsening of his left great toe with presence of underlying bone infection as evidenced from an x-ray on 08/13/2022. Patient is a type II diabetic with a recent A1c greater than 8 noting some numbness to his legs bilaterally extending from his feet to proximal tibia. Patient does note some cramping in his legs with ambulation which is improved with ambulation using a shopping cart. Patient's mood dealing with a left hallux wound for prolonged period of time notes worsening over the past week. Patient denies constitutional's at current. Patient denies pain at rest. Patient does admit the pain when the wound is manipulated. No other complaints. [facility] Medical History COVID-19 Diabetes mellitus Esophageal reflux Family history of hemochromatosis Mixed hyperlipidemia EDILIA on CPAP Osteoarthritis Prostate CA Pulmonary embolism Sebaceous cyst Sleep apnea Type 2 diabetes mellitus Home Medications sertraline 100 mg tablet 100 mg PO DAILY 05/02/20 [History Last Taken 08/25/22] metformin 500 mg tablet 500 mg PO BID 09/22/21 [History Last Taken 08/25/22] glimepiride 4 mg tablet 4 mg PO DAILY 11/12/21 [History Last Taken 08/25/22] Allergy/AdvReac Type Severity Reaction Status Date / Time No Known Allergies Allergy Verified 08/26/22 11:33 Family History Brother Hemochromatosis Sister Hemochromatosis Brother Heart disease Surgical History History of left hip replacement History of right hip replacement History of tonsillectomy and adenoidectomy Social History Smoking Status: Never smoker alcohol intake: never substance use type: does not use caffeine: Yes Type: coffee Number of servings: 1 Physical Exam Narrative Gangrenous left hallux along the medial great toe at the level of the interphal angeal joint with exposed proximal phalangeal head and significant periwound erythema edema and warmth as well as malodor. No evidence of fluctuance or crepitus suggestive of acute abscess. Neurovascular status demonstrates absent light touch protective sensation. Patient has nonpalpable pulses but posterior tibial artery is biphasic on the left lower extremity. Dorsalis pedis is monophasic the left lower extremity. Perforating peroneal is biphasic to the left lower extremity. There are at rophic skin changes noted including absence of digital hair growth, skin thinning, shiny taut appearance. No gross deformity or evidence DVT Const alert and oriented x3 Lab / Micro Data 08/26/22 12:00 08/26/22 12:00 Labs: Laboratory Results - last 24 hr 08/26/22 12:00: WBC 10.8, RBC 3.70 L, Hgb 11.7 L, Hct 35.4 L, MCV 95.7 H, MCH 31 .6, MCHC 33.1, RDW Std Deviation 42.0, RDW Coeff of Bucky 12.1, Plt Count 303, MPV 9.3, Immature Gran % (Auto) 1.300 H, Neut % (Auto) 73.2 H, Lymph % (Auto) 13.4 L , [place] % (Auto) 8.5, Eos % (Auto) 3.1, Baso % (Auto) 0.5, Absolute Neuts (auto) 7.9 H, Absolute Lymphs (auto) 1.44, Nucleated RBC % 0, ESR 32 H, PT 13.4, INR 1.0, Sodium 137, Potassium 4.6, Chloride 104, Carbon Dioxide 27.0, Anion Gap 6, BUN 33 H, Creatinine 1.00, Estim Creat Clear Calc 57.95, Est GFR (MDRD) Af Amer 93, Est GFR (MDRD) Non-Af 77, BUN/Creatinine Ratio 33.1 H, Glucose 193 H, Calcium 9.7, C-React Prot Ext Range 56.80 H, Blood Type A POSITIVE, Antibody Screen NEGATIVE 08/26/22 12:15: Lactic Acid 0.9
[2022-08-26] MEDS: Glucerna Shake 120 ML LIQUID PO ×3 (14:39→21:41)
--- NOTE | 2022-08-26 15:44 | PCM.RX.CS ---
Consult Antibiotic Management Pharmacy has been consulted to manage selected antiobiotic: Vancomycin Type of Intervention Type of Consult: New start Suspected Infection Suspected Infection: Skin/Soft tissue and Osteomyelitis Prior Doses of Antibiotics Prior Doses of Antibiotics Received/Current Regimen: Received 1500mg iv x 1 as loading dose 08.26.22 @1436. Labs Labs: Sodium 137 mmol/L (136-145) 08/26/22 12:00 Potassium 4.6 mmol/L (3.5-5.1) 08/26/22 12:00 Chloride 104 mmol/L (98-107) 08/26/22 12:00 Carbon Dioxide 27.0 mmol/L (21.0-32.0) 08/26/22 12:00 Anion Gap 6 (5-15) 08/26/22 12:00 BUN 33 mg/dL (7-18) H 08/26/22 12:00 Creatinine 1.00 mg/dL (0.70-1.30) 08/26/22 12:00 Est GFR (MDRD) Af Amer 93 mL/min (>60) 08/26/22 12:00 Est GFR (MDRD) Non-Af 77 mL/min (>60) 08/26/22 12:00 BUN/Creatinine Ratio 33.1 RATIO (10-20) H 08/26/22 12:00 Glucose 193 mg/dL (74-106) H 08/26/22 12:00 Dosing Weight Weight used for dosin.6 kg Estimated Creatinine Clearance Estimated Creatinine Clearance: 58 ml/min Pharmacy Plan for Drug Dosing Pharmacy Plan for Drug Dosing: Will begin 1000mg iv q12h. Trough level ordered for before 4th total dose on 08.28.22. Pharmacy Service will continue to monitor and adjust dosing as required. Date/Time Labs Ordered Labs to be done on [date and time ordered]: trough level 08.28 @0030
[2022-08-26] MEDS: 0.9% Normal Saline 1,000 ML 75 ML IV (17:01)
[2022-08-26] MEDS: Juven (unflavored) Packet 1 PACKET PO (17:08)
[2022-08-26 17:21] LABS: Bedside Glucose 85 mg/dL (74-106)
[2022-08-26 22:52] LABS: Bedside Glucose 152 mg/dL (74-106)
[2022-08-26] MEDS: oxyCODONE 5 MG Tablet PO (23:55)
[2022-08-27] VITALS (8 sets, daily range): BP systolic 117–164; BP diastolic 54–81; PULSE 58–73; RESP 14–16; TEMP 36.3–36.8; O2SAT 94–100; BMI 30.8
[2022-08-27] MEDS: Vancomycin IV 1,000 MG/200 ML BAG 200 MG IV ×2 (01:50→16:16)
--- NOTE | 2022-08-27 05:55 | EKG12_ITS ---
Test Reason : ARM PAIN Blood Pressure : / mmHG Vent. Rate : 075 BPM Atrial Rate : 075 BPM P-R Int : 188 ms QRS Dur : 074 ms QT Int : 374 ms P-R-T Axes : 003 -06 077 degrees QTc Int : 417 ms Sinus rhythm with Premature atrial complexes Cannot rule out Anteroseptal infarct , age undetermined Abnormal ECG When compared with ECG of 27-AUG-2022 04:50, MANUAL COMPARISON REQUIRED, DATA IS UNCONFIRMED Confirmed by GUSTAVO BARRIENTOS, DARSHAN ([id number]), video editor CAYLA JAMES ([id number]) on 08/31/2022 7:18:06 AM Referred By: Confirmed By:DARSHAN CHEN MD
[2022-08-27 06:35] LABS: Absolute Lymphocyte Count 1.54 X10^3/uL (0.83-4.51); Absolute Neutrophil Count 7.2 X10^3/uL (2.0-7.7); Basophil# 0.05 X10^3/uL; Basophil% 0.5 % (0-1); Eosinophil# 0.34 X10^3/uL; Eosinophils% 3.3 % (0-5); Hematocrit 31.8 % (40-54); Hemoglobin 10.5 g/dL (13.0-16.5); Lymphocyte # 1.54 X10^3/ul (0.83-4.51); Lymphocyte % 15.1 % (19-41); Mean Corpuscular Hgb 31.2 pg (27.0-32.0); Mean Corpuscular Volume 94.4 fL (80-94); Mean Platelet Vol. 9.3 fl (6.2-12.0); Monocyte# 0.99 X10^3/uL; Monocyte% 9.7 % (0-10); NRBC Flagged by Analyzer 0 % (0-5); Neutrophil # 7.18 X10^3/uL (2.7-7.7); Neutrophil % 70.3 % (47-70); Platelet Count 253 K/mm3 (150-450); RBC Distribution Width CV 12.1 % (11.6-14.6); RBC Distribution Width SD 41.6 fl (35.1-43.9); Red Blood Count 3.37 M/mm3 (4.6-6.2); White Blood Count 10.2 K/mm3 (4.4-11.0)
[2022-08-27 06:52] LABS: Bedside Glucose 125 mg/dL (74-106)
[2022-08-27 06:55] LABS: ALB/GLOB Ratio 0.7 RATIO (0.9-2.4); AST(SGOT) 19 U/L (15-37); Alanine Aminotransfer ALT/SGPT 23 U/L (16-61); Albumin, Serum 3.1 g/dL (3.2-5.0); Alkaline Phosphatase 62 U/L (45-117); Anion Gap 4 (5-15); BUN 28 mg/dL (7-18); BUN/Creat Ratio 29.8 RATIO (10-20); Calcium,Total 9.4 mg/dL (8.5-10.1); Chloride 106 mmol/L (98-107); Creatinine, Serum 0.94 mg/dL (0.70-1.30); EST Glomerular Filtration Rate 82 mL/min (>60); Est Glom Filt Rate - Afr Amer 99 mL/min (>60); Estimated Creatinine Clearance 63.72 ml/min; Globulin 4.4 g/dL (2.2-4.2); Glucose 118 mg/dL (74-106); Potassium 4.5 mmol/L (3.5-5.1); Protein, Total 7.5 g/dL (6.4-8.2); Sodium Level 137 mmol/L (136-145)
--- NOTE | 2022-08-27 08:01 | PCM.PN.HOSP ---
Reason for Visit Reason for Visit: Diagnoses Obstructive sleep apnea (adult) (pediatric) (08/26/22) Non-pressure chronic ulcer of other part of left foot with fat layer exposed (08/26/22) Other acute osteomyelitis, left ankle and foot (08/26/22) Osteomyelitis, unspecified (08/26/22) Personal history of other endocrine, nutritional and metabolic disease (08/26/22) Dependence on other enabling machines and devices (08/26/22) Subjective Subjective Feeling about the same, did require pain medication last night and did not sleep well but he reports he is not sure why. No other complaints Objective Data Objective Data Vital Signs: Vital Signs Temp Pulse Resp BP Pulse Ox O2 Del Method 97.4 F L 65 14 132/64 H 98 CPAP 08/27/22 03:37 08/27/22 03:37 08/27/22 03:37 08/27/22 03:37 08/27/22 03:37 08/27/22 03:37 Oxygen Delivery Method CPAP Weight: 94.6 kg Body Mass Index (BMI) 30.8 Intake & Output: Intake and Output for Last 24 Hours 08/25/22 08/26/22 08/27/22 23:59 23:59 23:59 Intake Total 1405 / 1405 1155 / 1155 Balance 1405 / 1405 1155 / 1155 Lab / Micro Data 08/27/22 05:43 08/27/22 05:43 Labs: Laboratory Results - last 24 hr 08/26/22 12:00: WBC 10.8, RBC 3.70 L, Hgb 11.7 L, Hct 35.4 L, MCV 95.7 H, MCH 31.6, MCHC 33.1, RDW Std Deviation 42.0, RDW Coeff of Bucky 12.1, Plt Count 303, MPV 9.3, Immature Gran % (Auto) 1.300 H, Neut % (Auto) 73.2 H, Lymph % (Auto) 13.4 L, Crowley % (Auto) 8.5, Eos % (Auto) 3.1, Baso % (Auto) 0.5, Absolute Neuts (auto) 7.9 H, Absolute Lymphs (auto) 1.44, Nucleated RBC % 0, ESR 32 H, PT 13.4, INR 1.0, Sodium 137, Potassium 4.6, Chloride 104, Carbon Dioxide 27.0, Anion Gap 6, BUN 33 H, Creatinine 1.00, Estim Creat Clear Calc 57.95, Est GFR (MDRD) Af Amer 93, Est GFR (MDRD) Non-Af 77, BUN/Creatinine Ratio 33.1 H, Glucose 193 H, Calcium 9.7, C-React Prot Ext Range 56.80 H, Blood Type A POSITIVE, Antibody Screen NEGATIVE 08/26/22 12:15: Lactic Acid 0.9 08/26/22 17:00: POC Glucose 85 08/26/22 21:27: POC Glucose 152 H 08/27/22 05:43: WBC 10.2, RBC 3.37 L, Hgb 10.5 L, Hct 31.8 L, MCV 94.4 H, MCH 31.2, MCHC 33.0, RDW Std Deviation 41.6, RDW Coeff of Bucky 12.1, Plt Count 253, MPV 9.3, Immature Gran % (Auto) 1.100 H, Neut % (Auto) 70.3 H, Lymph % (Auto) 15.1 L, Crowley % (Auto) 9.7, Eos % (Auto) 3.3, Baso % (Auto) 0.5, Absolute Neuts (auto) 7.2, Absolute Lymphs (auto) 1.54, Nucleated RBC % 0, Sodium 137, Potassium 4.5, Chloride 106, Carbon Dioxide 27.0, Anion Gap 4 L, BUN 28 H, Creatinine 0.94, Estim Creat Clear Calc 63.72, Est GFR (MDRD) Af Amer 99, Est GFR (MDRD) Non-Af 82, BUN/Creatinine Ratio 29.8 H, Glucose 118 H, Calcium 9.4, Total Bilirubin 0.50, AST 19, ALT 23, Alkaline Phosphatase 62, Total Protein 7.5, Albumin 3.1 L, Globulin 4.4 H, Albumin/Globulin Ratio 0.7 L 08/27/22 06:17: POC Glucose 125 H Radiography Diagnostic Testing: Radiology Impression Extremity Arterial Study 08/26/22 13:56 Interpretation Summary Right ATUL 0.9, mild arterial insufficiency. Doppler/PVR waveforms mildly diminished distal SFA/popliteal. Left ATUL 0.95, mild arterial insufficiency. Doppler/PVR waveforms mildly diminished distal SFA/popliteal. Unable to assess LT GRT TOE due to all toes in fresh bandages. Ordering Physician: Andrés Wolfe Referring Physician: Isela King Performed By: Amy VillarrealT, RDCS Physical Exam Narrative General: Alert, oriented, no apparent distress HEENT: Atraumatic, normocephalic Eyes: Anicteric, normal conjunctiva, extraocular movements grossly intact Neck: Supple Respiratory: Clear to auscultation bilaterally, normal respiratory effort Cardiovascular: Regular rate and rhythm GI: Soft, nontender, nondistended Extremities: No edema Musculoskeletal: Moving all extremities Neuro: No overt focal neurological deficits Skin: Left foot wrapped Psych: Cooperative Assessment & Plan Assessment/Plan (1) Osteomyelitis of great toe of left foot: (2) History of diabetes mellitus, type II: (3) EDILIA on CPAP: PLAN: Plan #Osteomyelitis of L great toe -Seen on plain film x-ray -Additionally has some surrounding cellulitis -No elevation white blood cell count but there is a left shift, CRP is 56.8 -Blood cultures obtained, wound culture from 08/24 growing Klebsiella and a gram-positive organism and gram-positive adrian that have yet to speciate -Broad spectrum abx -Pod c/s -wound care c/s -NPO -Gentle hydration -Pain control -08/27: Awaiting MRI of toe, plan is for patient to go to the OR today, continue antibiotics, cultures pending #Type 2 diabetes mellitus -Glucose checks and sliding scale insulin -Hold home oral hypoglycemics -A1c on 08/12/2022 was 7.3 -08/27: Continue glucose checks and sliding scale insulin, it is possible that we may be able to DC sliding scale if patient is well controlled without it #EDILIA -CPAP nightly #Macrocytic anemia -Present over the past month with no values until a year prior to that -Can undergo outpatient work-up if applicable -At this time is stable -08/27: Dropped slightly to 10.5, no overt signs or symptoms of bleeding, may be dilutional given fluids. Will monitor #DVT ppx: SCDs Babs Lawrence MD Time spent in the patient's overall evaluation,decision-making process, review of diagnostic data, adjustment of management, discussion with other providers, nursing nursing and ancillary staff involved in patient's care documentation, 37 minutes Charges/Coding Visit Charges Inpatient E&M: 23135 Subs Hosp L2
[2022-08-27] MEDS: Sertraline 100 MG Tablet PO (08:38)
[2022-08-27] MEDS: Juven (unflavored) Packet 1 PACKET PO ×2 (08:38→16:20)
--- NOTE | 2022-08-27 09:00 | MRI_ITS ---
HISTORY: left foot osteomyelitis. TECHNIQUE: Multiplanar and multisequence MR images of the left foot were obtained without contrast. 210 images. COMPARISON: XR 08/12/2022. FINDINGS: BONE: Marked bone marrow edema of the first proximal phalanx with cortical indistinctness of the head. Marked bone marrow edema of the first distal phalanx with cortical indistinctness and fragmentation at the base. Possible air extending into the medullary cavity. JOINTS: Mild degenerative change of the first metatarsal phalangeal joint with trace joint effusion . Mild joint effusion of the first interphalangeal joint with suspicion for air extending into the joint space. TENDONS: No significant flexor or extensor tenosynovitis. SOFT TISSUES: Ulceration or wound at the medial aspect of the first interphalangeal joint with edema and air extending into the soft tissues. Intramuscular and subcutaneous edema. MRI/Lower Ext/No Jt/w/o IMPRESSION: Osteomyelitis and probable septic arthritis of the first toe interphalangeal joint with cortical erosion as well as air extending into the soft tissues and joint space with mild joint effusion. Myositis and cellulitis of the left foot. Electronically Signed: Georgia Conway MD at 11:36 EDT ,
--- NOTE | 2022-08-27 09:02 | WOUNDNOTE ---
wound photo: left great toe
--- NOTE | 2022-08-27 09:03 | WOUNDNOTE ---
wound photo: left great toe
--- NOTE | 2022-08-27 11:20 | CASEMGMT ---
RN CM Face to Face with patient for initial transition planning/care coordination assessment. RN CM introduced self and role at [facility]. Patient lying in bed, alert and oriented, at bedside. Patient willing to participate in assessment and is able to answer all questions appropriately. Care providers, pharmacy, and demographics verified. Patient wishes to discharge home and is interested in HHC. A list of HHC providers including quality and resource use data and consistent with the patient?s preferred geographical region, medical needs, and insurance network were provided from the [employer] Guide. Patient to review and provide preferences. Discussed possible IV ATBs at discharge. Patient states he has no further needs or concerns at this time. CM to follow for discharge planning needs that may arise. PCP: Christine Specialists: Balaji/Aiden seafood service team member; Shilpi, urologist Preferred Pharmacy: [facility]; [facility] at discharge. Insurance: [email or web address] [facility] Prescription Benefit: yes Living Will/HPOA: yes, Marlin Burnham LNOK: , daughter, son Living Arrangements: Patient lives with in a single story home with 3 steps and railing to enter the home. Patient was independent at home. Transportation: self, DME/HHC: Patient has shower chair, raised toilet, cane, grab bars, rollator, cpap, and glucometer with supplies. No previous HHC or SNF. Will monitor for possible IV ATBS Disposition Plan: Patient to discharge home with HHC, family support, and follow-up plans in place. Gabriela SANTOS, RN, CM
[2022-08-27] MEDS: Lactated Ringers 1,000 ML 15 ML IV (12:37)
--- NOTE | 2022-08-27 13:30 | AMP_PTH ---
PATIENT: TALON NUNES LOC: [facility] U#:[id number] AGE/SX: 77/M ROOM: [facility] RE08/26/[address]: Dr. Talon Pennington MD : [id number] BED: 1 DIS: 08/30/2022 SPEC #: [id number] RECD: 08/30/22 08:29 STATUS: ZOHRA REQ #: [id number] CHAZ: 08/27/22 13:[address]: Andrés Wolfe DEPT: SURGICAL PATHOLOGY RECD BY: Jayden Flor ENTERED: 08/30/22 09:42 SP TYPE: Amputation OTHR DR: Dr. Andrés Wolfe, DPM MD Isela Rivera DO Dr. Paige Pierce, MD Dr. Robert Leininger, MD Tissues: A - Toe, NOS B - Bone of foot, NOS Procedures: Decalcification bone/plaque Surgery Specimen Level IV Comments: @ Ordering doctor for DEC edited from to @ by FAVIAN at 08/30/22 154 @ Ordering doctor for SUIII edited from to @ by FAVIAN at 08/30/22 154 @ Ordering doctor for SUIV edited from to @ by FAVIAN at 08/30/22 154 @ Submitting doctor edited from to @ by FAVIAN at 08/30/22 1547 HEADER OPERATION: Partial first ray amputation PRE-OP DIAGNOSIS: Osteomyelitis of great toe of left foot TISSUE SUBMITTED: A - Left great toe bone and tissue specimen, B - Left first metatarsal head clean margins MICROSCOPIC DIAGNOSIS A. Left great toe bone, amputation: Focal ulceration, acute inflammation and abscess formation. Underlying bone with acute osteomyelitis. B. Left first metatarsal head clearance margin: Pieces of bone with reactive changes, negative for acute osteomyelitis. SJ:antione 09/02/2022 MICROSCOPIC DESCRIPTION Slides are reviewed. GROSS DESCRIPTION A - Received in fixative is one container labeled with the patient's name and designated left great toe bone and tissue. The specimen consists of a portion of toe measuring 5.0 x 3.0 x 2.5 cm. The nail is present. An extensive area of ulceration is noted on the medial surface of the toe measuring 3.5 x 1.0 cm. Also present in the container are detached piece of skin and tendinous tissue measuring in aggregate 4.0 x 3.0 x 0.6 cm. Buckle Gluer sections are submitted in two cassettes as follows: 1??ulcerated area, 2 - bone underlying the ulcerated area after decalcification. B - Received in fixative is one container labeled with the patient's name and designated left first metatarsal head clean margins. The specimen consists of a piece of bone consistent with metatarsal head measuring 2.5 x 3.0 x 2.0 cm. Also present is an additional piece of bone measuring 3.0 x 1.5 x 1.0 cm. A portion of soft tissue attached to metatarsal bone measures 3.0 x 1.5 x 0.8 cm. Buckle Gluer sections are submitted in three cassettes as follows: 1 - soft tissue attached to metatarsal head, 2??smaller piece of bone, 3 - larger piece of bone and metatarsal head. Cassettes 2 & 3 are submitted after decalcification. / SJ:rg 08/30/2022 TC:2 CPT: 78875 x2, 44414 x2
[2022-08-27] MEDS: Bupivacaine Mpf 0.5% 30 ML VIAL (13:54)
--- NOTE | 2022-08-27 14:59 | PCM.OPRPT ---
Problems Associated Problem List Diagnoses (1) Osteomyelitis of foot, left, acute: (2) History of diabetes mellitus, type II: Report of Operation Date of Procedure: 08/27/22 Pre-Operative Diagnosis: 1) Left hallux osteomyelitis 2) Full thickness wound down to level of bone Post-Operative Diagnosis: same Surgery/Procedure Performed:: 1) Partial first ray amputation, Left Foot 2) Rotational Flap, Left foot Description of Surgical Findings:: necrotic left great toe, intact 1st metatarsal head - resected for soft tissue coverage due to significant medial hallux necrosis and requirement for rotational flap creation to allow for adequate soft tissue coverage post amputation tissue devoid of any additional break down or signs of infection including purulence or necrotic tissue Surgeon: Andrés Wolfe deodorizer operator: None (yoshi al) Type of Anesthesia: MAC Special Medications: 20cc 0.5% marcaine plain Specimen's removed: Left hallux bone/tissue for microbiology and pathology Let 1st metatarsal head for pathology Drains: none Estimated Blood Loss (mL): <3cc Fluids Replaced: none Description of Procedure: Brought back the operating placed in supine position on the operating to table. Patient induced under MAC anesthesia. Well-padded left ankle tourniquet applied. Left lower extremity elevated on blankets. Left lower extremity bumped to knock out any external rotation. 10 cc of half percent Marcaine plain were used to perform a Summers block left lower extremity scrubbed prepped draped using typical aseptic fashion. Once cleared by anesthesia left lower extremity was elevated exsanguinated tourniquet was inflated 250 mmHg. Dorsal racquet incision was initially planned but due to the complex nature of the medial left hallux wound. The rotational flap was ultimately generated to allow for adequate soft tissue coverage. Incision was made dorsally and extended from proximal to distal full-thickness down to level first metatarsal head ultimately excising the medial hallux wound full-thickness dorsally and plantarly and the hallux was removed at the level of the metatarsal phalangeal joint. Any bleeders were cauterized. All neurovascular structures identified and protected with blunt retraction. Left hallux was sent to the back table and split and sent to pathology and microbiology for bone and tissue culture and pathology examination. The first metatarsal head appeared to be intact no evidence of purulence to this site the first metatarsal head was removed as to allow for adequate soft tissue coverage and to ensure clear margins. This was packed and passed to the back table and sent to pathology as a clean margin of bone. At this time the soft tissue defect was identified and decision was made for a rotational flap to allow for adequate soft tissue coverage at this amputation site. A full-thickness flap was mobilized and undermined using pickups and a #15 blade in a semicircular fashion and rotated from plantar medial to dorsal lateral closing over the amputation site. Prior to definitive closure the incisional site was flushed with copious amounts of normal sterile saline. Skin was then closed with 4-0 Prolene horizontal mattress technique. Tourniquet was let down prior to incisional closure and there is no to be adequate bleeding but no obvious bleeders and needed a dressing at that time. Tourniquet time was noted be less than 15 minutes. Incisional site was dressed with Betadine Adaptic 4 x 4's Kerlix ABD pads and Herbie bandage. Patient was transferred to PACU vital signs stable vascular status intact to all digits from other further monitoring prior to transfer back to floor. Patient tolerated procedure and anesthesia well apparent satisfactory condition. Patient will continue stay in the hospital till definitive final cultures come back for antibiotic decision making. Patient will maintain nonweightbearing to left lower extremity to offload the site. no complications. Complications None Admit VTE Documentation VTE Present on Admission: Yes VTE Pharm Prophylaxis ordered?: Yes
--- NOTE | 2022-08-27 15:00 | RAD_ITS ---
INDICATION: AMPUTATION EXAMINATION/TECHNIQUE: X-RAY - LEFT XR Foot Min 3 Views 3 VIEWS COMPARISON: FINDINGS: SOFT TISSUES: No soft tissue swelling or gas. No radiopaque foreign body. BONES/JOINTS: There is amputation of the first toe. No acute fracture or subluxation.. Normal alignment. Preservation of the joint space.. No sclerotic or destructive changes observed. RAD/Foot min 3 Views IMPRESSION: Status post amputation of the first toe. No definitive evidence for bone destruction. Electronically Signed: Andrés Vega, at 15:46 EDT ,
--- NOTE | 2022-08-27 15:12 | CASEMGMT ---
Discharge Planning HH list created and given to RN FLORINA. Chely Carias, Discharge Planning Asst.
[2022-08-27 16:46] LABS: Bedside Glucose 105 mg/dL (74-106)
[2022-08-27 16:55] LABS: Bedside Glucose 140 mg/dL (74-106)
[2022-08-27] MEDS: Acetaminophen 325 MG Tablet 650 MG PO (20:11)
[2022-08-27] MEDS: oxyCODONE 5 MG Tablet PO (20:12)
[2022-08-27] MEDS: Glucerna Shake 120 ML LIQUID PO (21:22)
--- NOTE | 2022-08-27 21:53 | EKG12_ITS ---
Test Reason : AM EKG Blood Pressure : / mmHG Vent. Rate : 064 BPM Atrial Rate : 064 BPM P-R Int : 166 ms QRS Dur : 074 ms QT Int : 428 ms P-R-T Axes : 021 -03 084 degrees QTc Int : 441 ms Normal sinus rhythm Cannot rule out Anterior infarct , age undetermined Abnormal ECG When compared with ECG of 26-AUG-2022 11:59, MANUAL COMPARISON REQUIRED, DATA IS UNCONFIRMED Confirmed by GUSTAVO BARRIENTOS, DARSHAN ([id number]), script editor CAYLA JAMES ([id number]) on 08/31/2022 7:19:57 AM Referred By: SY Confirmed By:DARSHAN CHEN MD
[2022-08-27 22:17] LABS: Bedside Glucose 127 mg/dL (74-106)
[2022-08-27] MEDS: Morphine 2 MG/ML Syringe IV (23:05)
[2022-08-27 23:50] LABS: Troponin-I HS 16 pg/mL (3.0-78.0)
[2022-08-28 01:25] LABS: Troponin-I HS 16 pg/mL (3.0-78.0); Vancomycin, Trough Level 18.6 ug/mL (5.0-15.0)
[2022-08-28] MEDS: Vancomycin IV 1,000 MG/200 ML BAG 200 MG IV ×2 (01:30→14:19)
--- NOTE | 2022-08-28 01:33 | PCM.RX.CS ---
Consult Antibiotic Management Pharmacy has been consulted to manage selected antiobiotic: Vancomycin Type of Intervention Type of Consult: Follow-up Suspected Infection Suspected Infection: Osteomyelitis Labs Labs: Sodium 137 mmol/L (136-145) 08/27/22 05:43 Potassium 4.5 mmol/L (3.5-5.1) 08/27/22 05:43 Chloride 106 mmol/L (98-107) 08/27/22 05:43 Carbon Dioxide 27.0 mmol/L (21.0-32.0) 08/27/22 05:43 Anion Gap 4 (5-15) L 08/27/22 05:43 BUN 28 mg/dL (7-18) H 08/27/22 05:43 Creatinine 0.94 mg/dL (0.70-1.30) 08/27/22 05:43 Est GFR (MDRD) Af Amer 99 mL/min (>60) 08/27/22 05:43 Est GFR (MDRD) Non-Af 82 mL/min (>60) 08/27/22 05:43 BUN/Creatinine Ratio 29.8 RATIO (10-20) H 08/27/22 05:43 Glucose 118 mg/dL (74-106) H 08/27/22 05:43 Vancomycin Trough 18.6 ug/mL (5.0-15.0) H 08/28/22 00:52 Dosing Weight Weight used for dosin.6 kg Estimated Creatinine Clearance Estimated Creatinine Clearance: 64 ml/min Goal Trough Goal Trough: 15-20 mcg/mL Pharmacy Plan for Drug Dosing Pharmacy Plan for Drug Dosing: Vancomycin trough level was 18.6. This was within the target range of 15-20. Will continue dosing at 1000mg q12h, and will re-draw a trough in two days. Pharmacy Service will continue to monitor and adjust dosing as required. Follow-Up Labs Follow-Up Labs: Trough: Vancomycin Date/Time Labs Ordered Labs to be done on [date and time ordered]: 08/30/22 @0030
[2022-08-28] MEDS: Acetaminophen 325 MG Tablet 650 MG PO (03:00)
[2022-08-28] MEDS: oxyCODONE 5 MG Tablet PO ×3 (03:01→21:42)
[2022-08-28 03:05] VITALS: BP 131/65; PULSE 77; RESP 14; TEMP 36.6; O2SAT 93
[2022-08-28 05:53] VITALS: BP 131/65; PULSE 77; RESP 14; TEMP 36.6; O2SAT 93
[2022-08-28 06:30] LABS: Absolute Lymphocyte Count 1.19 X10^3/uL (0.83-4.51); Absolute Neutrophil Count 9.9 X10^3/uL (2.0-7.7); Basophil# 0.04 X10^3/uL; Basophil% 0.3 % (0-1); Eosinophil# 0.12 X10^3/uL; Hematocrit 30.2 % (40-54); Lymphocyte # 1.19 X10^3/ul (0.83-4.51); Lymphocyte % 9.5 % (19-41); Mean Corp Hgb Conc 33.1 g/dL (32-36); Mean Corpuscular Hgb 30.8 pg (27.0-32.0); Mean Corpuscular Volume 92.9 fL (80-94); Mean Platelet Vol. 9.3 fl (6.2-12.0); Monocyte# 1.26 X10^3/uL; NRBC Flagged by Analyzer 0 % (0-5); Neutrophil # 9.88 X10^3/uL (2.7-7.7); Neutrophil % 78.6 % (47-70); Platelet Count 259 K/mm3 (150-450); RBC Distribution Width CV 11.9 % (11.6-14.6); RBC Distribution Width SD 40.5 fl (35.1-43.9); Red Blood Count 3.25 M/mm3 (4.6-6.2); White Blood Count 12.6 K/mm3 (4.4-11.0)
[2022-08-28] MEDS: Insulin Lispro 100 UNIT/ML INSULN.PEN SC ×4 (06:33→21:41)
[2022-08-28 07:07] LABS: ALB/GLOB Ratio 0.6 RATIO (0.9-2.4); AST(SGOT) 17 U/L (15-37); Alanine Aminotransfer ALT/SGPT 21 U/L (16-61); Albumin, Serum 2.8 g/dL (3.2-5.0); Alkaline Phosphatase 57 U/L (45-117); Anion Gap 7 (5-15); BUN 34 mg/dL (7-18); BUN/Creat Ratio 30.4 RATIO (10-20); Calcium,Total 8.9 mg/dL (8.5-10.1); Chloride 102 mmol/L (98-107); Creatinine, Serum 1.12 mg/dL (0.70-1.30); EST Glomerular Filtration Rate 67 mL/min (>60); Est Glom Filt Rate - Afr Amer 81 mL/min (>60); Estimated Creatinine Clearance 53.48 ml/min; Globulin 4.5 g/dL (2.2-4.2); Glucose 237 mg/dL (74-106); Protein, Total 7.3 g/dL (6.4-8.2); Sodium Level 132 mmol/L (136-145); Troponin-I HS 11 pg/mL (3.0-78.0)
[2022-08-28 08:30] VITALS: BP 126/48; PULSE 69; RESP 16; TEMP 36.7; O2SAT 95
[2022-08-28] MEDS: Juven (unflavored) Packet 1 PACKET PO ×2 (08:35→17:34)
[2022-08-28] MEDS: Senna/Docusate Sodium 1 Tablet 2 TABLET PO (08:35)
[2022-08-28] MEDS: Sertraline 100 MG Tablet PO (08:35)
[2022-08-28] MEDS: Glucerna Shake 120 ML LIQUID PO ×4 (08:40→21:41)
--- NOTE | 2022-08-28 08:53 | PCM.PN.HOSP ---
Reason for Visit Reason for Visit: Diagnoses Obstructive sleep apnea (adult) (pediatric) (08/26/22) Non-pressure chronic ulcer of other part of left foot with fat layer exposed (08/26/22) Other acute osteomyelitis, left ankle and foot (08/26/22) Osteomyelitis, unspecified (08/26/22) Personal history of other endocrine, nutritional and metabolic disease (08/26/22) Dependence on other enabling machines and devices (08/26/22) Subjective Subjective Patient started surgery yesterday. Patient seen with at bedside. Reports he thinks he got to his room around 431 on his left arm started hurting him progressively until about 0 when he had a crescendo of his pain and required pain medication. Eventually pain medications were changed overnight and patient had some relief. This morning he reports that it hurts when he moves it in certain ways does not hurt to palpation no neck or joint pain and no pain at rest. 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 Objective Data Objective Data Vital Signs: Vital Signs Temp Pulse Resp BP Pulse Ox O2 Del Method 98.1 F 69 16 126/48 H 95 Room Air 08/28/22 08:30 08/28/22 08:30 08/28/22 08:30 08/28/22 08:30 08/28/22 08:30 08/28/22 08:45 Oxygen Delivery Method Room Air Weight: 94.6 kg Body Mass Index (BMI) 30.8 Intake & Output: Intake and Output for Last 24 Hours 08/26/22 08/27/22 08/28/22 23:59 23:59 23:59 Intake Total 1405 / 1405 1935 / 1935 250 / 250 Output Total 350 / 350 515 / 515 Balance 1405 / 1405 1585 / 1585 -265 / -265 Lab / Micro Data 08/28/22 05:24 08/28/22 05:24 Labs: Laboratory Results - last 24 hr 08/27/22 12:10: POC Glucose 140 H 08/27/22 16:22: POC Glucose 105 08/27/22 21:21: POC Glucose 127 H 08/27/22 23:19: Troponin I High Sens 16 08/28/22 00:52: Troponin I High Sens 16, Vancomycin Trough 18.6 H 08/28/22 05:24: WBC 12.6 H, RBC 3.25 L, Hgb 10.0 L, Hct 30.2 L, MCV 92.9, MCH 30.8, MCHC 33.1, RDW Std Deviation 40.5, RDW Coeff of Bucky 11.9, Plt Count 259, MPV 9.3, Immature Gran % (Auto) 0.600, Neut % (Auto) 78.6 H, Lymph % (Auto) 9.5 L, [place] % (Auto) 10.0, Eos % (Auto) 1.0, Baso % (Auto) 0.3, Absolute Neuts (auto) 9.9 H, Absolute Lymphs (auto) 1.19, Nucleated RBC % 0, Sodium 132 L, Potassium 4.0, Chloride 102, Carbon Dioxide 23.0, Anion Gap 7, BUN 34 H, Creatinine 1.12, Estim Creat Clear Calc 53.48, Est GFR (MDRD) Af Amer 81, Est GFR (MDRD) Non-Af 67, BUN/Creatinine Ratio 30.4 H, Glucose 237 H, Calcium 8.9, Total Bilirubin 0.40, AST 17, ALT 21, Alkaline Phosphatase 57, Troponin I High Sens 11, Total Protein 7.3, Albumin 2.8 L, Globulin 4.5 H, Albumin/Globulin Ratio 0.6 L Radiography Diagnostic Testing: Radiology Impression Lower Extremity MRI 08/27/22 09:00 IMPRESSION: Osteomyelitis and probable septic arthritis of the first toe interphalangeal joint with cortical erosion as well as air extending into the soft tissues and joint space with mild joint effusion. Myositis and cellulitis of the left foot. Electronically Signed: Georgia Conway MD at 11:36 EDT , Foot X-Ray 08/27/22 15:00 IMPRESSION: Status post amputation of the first toe. No definitive evidence for bone destruction. 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 No pain whatsoever on palpation and no warm or swollen joints. Patient with warm hands well-perfused Neuro: No overt focal neurological deficits Skin: Left foot wrapped Psych: Cooperative Assessment & Plan Assessment/Plan (1) Osteomyelitis of great toe of left foot: (2) History of diabetes mellitus, type II: (3) EDILIA on CPAP: PLAN: Plan #Osteomyelitis of L great toe -Seen on plain film x-ray -Additionally has some surrounding cellulitis -No elevation white blood cell count but there is a left shift, CRP is 56.8 -Blood cultures obtained, wound culture from 08/24 growing Klebsiella and a gram-positive organism and gram-positive adrian that have yet to speciate -Broad spectrum abx -Pod c/s -wound care c/s -NPO -Gentle hydration -Pain control -08/27: Awaiting MRI of toe, plan is for patient to go to the OR today, continue antibiotics, cultures pending -08/28: MRI 08/27 with osteo and probable septic arthritis of first toe interphalangeal joint with cortical erosions as well as air extending into the soft tissues and joint space with mild joint effusion. Myositis and cellulitis foot. 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 Wolfe. Pain control, awaiting cultures, continue antibiotics. Will likely need ID consult but culture still pending #Left arm pain -Was noted last night with pain from shoulder and elbow, troponins were negative, EKG no STEMI -Ordered lactic acid and CK are before going to evaluate so as not to delay work-up, CK within normal limits and lactic pending -After evaluating it seems this is musculoskeletal in nature. Seems that as anesthesia wore off patient had progressive pain from right under shoulder down towards elbow on the left side with occasional going past elbow, difficulty describing the pain. It is improved when he does not move it and exacerbated with certain movements and improves with pain medication. Suspect this is musculoskeletal, his exam was negative for swollen joints, no tenderness on palpation, no point tenderness. Do not feel there is any indication for imaging, no swelling that would lead to suspicion for blood clot so do not feel we need urgent duplex at this time. We will schedule Tylenol and lidocaine patch, patient advised if this changes at all or is not improving to let me know. Discussed with patient's RN #Type 2 diabetes mellitus -Glucose checks and sliding scale insulin -Hold home oral hypoglycemics -A1c on 08/12/2022 was 7.3 -08/27: Continue glucose checks and sliding scale insulin, it is possible that we may be able to DC sliding scale if patient is well controlled without it -08/28: Well-controlled, continue current management #EDILIA -CPAP nightly #Macrocytic anemia -Present over the past month with no values until a year prior to that -Can undergo outpatient work-up if applicable -At this time is stable -08/27: Dropped slightly to 10.5, no overt signs or symptoms of bleeding, may be dilutional given fluids. Will monitor -08/28: Stable #DVT ppx: Lovenox subcu Babs Lawrence MD Time spent in the patient's overall evaluation,decision-making process, review of diagnostic data, adjustment of management, discussion with other providers, nursing nursing and ancillary staff involved in patient's care documentation, 51 minutes Charges/Coding Visit Charges Inpatient E&M: 51078 Subs Hosp L3
[2022-08-28 09:23] LABS: CPK Total, Creatine Kinase 90 U/L (39-308)
[2022-08-28 09:51] LABS: Lactic Acid 1.4 mmol/L (0.4-1.9)
--- NOTE | 2022-08-28 10:52 | PCM.PROGNOTE ---
Subjective Subjective Denies constitutionals pain minimal to left foot some arm pain overnight on left - negative troponins passing gas, voiding urine Objective Data Objective Data Vital Signs: Vital Signs Temp Pulse Resp BP Pulse Ox O2 Del Method 98.1 F 69 16 126/48 H 95 Room Air 08/28/22 08:30 08/28/22 08:30 08/28/22 08:30 08/28/22 08:30 08/28/22 08:30 08/28/22 08:45 Oxygen Delivery Method Room Air Weight: 94.6 kg Body Mass Index (BMI) 30.8 Intake & Output: Intake and Output for Last 24 Hours 08/26/22 08/27/22 08/28/22 23:59 23:59 23:59 Intake Total 1405 / 1405 1935 / 1935 250 / 250 Output Total 350 / 350 515 / 515 Balance 1405 / 1405 1585 / 1585 -265 / -265 Lab / Micro Data 08/28/22 05:24 08/28/22 05:24 Labs: Laboratory Results - last 24 hr 08/27/22 12:10: POC Glucose 140 H 08/27/22 16:22: POC Glucose 105 08/27/22 21:21: POC Glucose 127 H 08/27/22 23:19: Troponin I High Sens 16 08/28/22 00:52: Troponin I High Sens 16, Vancomycin Trough 18.6 H 08/28/22 05:24: WBC 12.6 H, RBC 3.25 L, Hgb 10.0 L, Hct 30.2 L, MCV 92.9, MCH 30.8, MCHC 33.1, RDW Std Deviation 40.5, RDW Coeff of Bucky 11.9, Plt Count 259, MPV 9.3, Immature Gran % (Auto) 0.600, Neut % (Auto) 78.6 H, Lymph % (Auto) 9.5 L, [place] % (Auto) 10.0, Eos % (Auto) 1.0, Baso % (Auto) 0.3, Absolute Neuts (auto) 9.9 H, Absolute Lymphs (auto) 1.19, Nucleated RBC % 0, Sodium 132 L, Potassium 4.0, Chloride 102, Carbon Dioxide 23.0, Anion Gap 7, BUN 34 H, Creatinine 1.12, Estim Creat Clear Calc 53.48, Est GFR (MDRD) Af Amer 81, Est GFR (MDRD) Non-Af 67, BUN/Creatinine Ratio 30.4 H, Glucose 237 H, Calcium 8.9, Total Bilirubin 0.40, AST 17, ALT 21, Alkaline Phosphatase 57, Total Creatine Kinase 90, Troponin I High Sens 11, Total Protein 7.3, Albumin 2.8 L, Globulin 4.5 H, Albumin/Globulin Ratio 0.6 L 08/28/22 09:12: Lactic Acid 1.4 Micro: Microbiology 08/27/22 15:13 Tissue - Great Toe Wound Culture - 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 Myositis and cellulitis of the left foot. Electronically Signed: Georgia Conway MD at 11:36 EDT , Foot X-Ray 08/27/22 15:00 IMPRESSION: Status post amputation of the first toe. No definitive evidence for bone destruction. Electronically Signed: Andrés Vega, at 15:46 EDT , Physical Exam Narrative Neurovascular status unchanged. Minimal drainage from surgical site. Incision well approximated intact with intact sutures. No breakdown or acute signs of infection. Sign DVT bilateral lower extremity Const alert and oriented x3 Assessment & Plan Assessment/Plan (1) Osteomyelitis of foot, left, acute: PLAN: Exam performed Incision well approximated with intact sutures Redressed with Betadine paint Adaptic 4 x 4's Kerlix Herbie Vital signs stable, some leukocytosis likely reactive from surgical intervention Awaiting cultures for final antibiotic recommendation Maintain nonweightbearing left lower extremity Keep dressing clean dry and intact Awaiting PT evaluation (2) History of diabetes mellitus, type II:
[2022-08-28] MEDS: 0.9% Normal Saline 1,000 ML 100 ML IV (11:31)
[2022-08-28] MEDS: Acetaminophen 500 MG Tablet 1000 MG PO ×2 (11:32→14:20)
[2022-08-28] MEDS: Enoxaparin 40 MG/0.4 ML Syringe SC (11:32)
[2022-08-28] MEDS: Lidocaine 5% Patch 1 PATCH TOPICAL (11:33)
[2022-08-28 11:58] LABS: Bedside Glucose 187 mg/dL (74-106)
[2022-08-28 14:29] VITALS: BP 145/56; PULSE 77; RESP 16; TEMP 37.2; O2SAT 93
[2022-08-28 17:57] LABS: Bedside Glucose 184 mg/dL (74-106)
[2022-08-28 21:49] VITALS: BP 145/57; PULSE 70; RESP 16; TEMP 37.2; O2SAT 93
[2022-08-28 22:21] LABS: Bedside Glucose 213 mg/dL (74-106)
[2022-08-29] VITALS: BP 122/51; PULSE 72; RESP 16; TEMP 36.6; O2SAT 95
[2022-08-29] MEDS: Vancomycin IV 1,000 MG/200 ML BAG 200 MG IV ×2 (01:23→12:43)
[2022-08-29 03:26] VITALS: BP 138/74; PULSE 78; RESP 16; TEMP 36.6; O2SAT 95
[2022-08-29 06:01] LABS: Absolute Lymphocyte Count 1.39 X10^3/uL (0.83-4.51); Basophil# 0.05 X10^3/uL; Basophil% 0.4 % (0-1); Eosinophil# 0.24 X10^3/uL; Eosinophils% 2.1 % (0-5); Hematocrit 33.3 % (40-54); Hemoglobin 10.8 g/dL (13.0-16.5); Lymphocyte # 1.39 X10^3/ul (0.83-4.51); Lymphocyte % 12.4 % (19-41); Mean Corp Hgb Conc 32.4 g/dL (32-36); Mean Corpuscular Hgb 30.5 pg (27.0-32.0); Mean Corpuscular Volume 94.1 fL (80-94); Mean Platelet Vol. 9.4 fl (6.2-12.0); Monocyte# 1.37 X10^3/uL; Monocyte% 12.2 % (0-10); NRBC Flagged by Analyzer 0 % (0-5); Neutrophil # 8.04 X10^3/uL (2.7-7.7); Platelet Count 255 K/mm3 (150-450); RBC Distribution Width CV 11.8 % (11.6-14.6); Red Blood Count 3.54 M/mm3 (4.6-6.2); White Blood Count 11.2 K/mm3 (4.4-11.0)
[2022-08-29] MEDS: Acetaminophen 500 MG Tablet 1000 MG PO ×3 (06:17→22:12)
[2022-08-29] MEDS: Insulin Lispro 100 UNIT/ML INSULN.PEN SC ×4 (06:49→22:13)
[2022-08-29 06:59] LABS: ALB/GLOB Ratio 0.6 RATIO (0.9-2.4); AST(SGOT) 13 U/L (15-37); Alanine Aminotransfer ALT/SGPT 19 U/L (16-61); Albumin, Serum 2.9 g/dL (3.2-5.0); Alkaline Phosphatase 60 U/L (45-117); Anion Gap 4 (5-15); BUN 33 mg/dL (7-18); BUN/Creat Ratio 30.3 RATIO (10-20); Calcium,Total 9.2 mg/dL (8.5-10.1); Chloride 104 mmol/L (98-107); Creatinine, Serum 1.09 mg/dL (0.70-1.30); EST Glomerular Filtration Rate 69 mL/min (>60); Est Glom Filt Rate - Afr Amer 84 mL/min (>60); Estimated Creatinine Clearance 54.95 ml/min; Globulin 4.8 g/dL (2.2-4.2); Glucose 232 mg/dL (74-106); Potassium 4.4 mmol/L (3.5-5.1); Protein, Total 7.7 g/dL (6.4-8.2); Sodium Level 134 mmol/L (136-145)
[2022-08-29 07:06] LABS: Bedside Glucose 213 mg/dL (74-106)
[2022-08-29 08:05] VITALS: BP 105/68; PULSE 68; RESP 15; TEMP 36.7; O2SAT 95
[2022-08-29] MEDS: Lidocaine 5% Patch 1 PATCH TOPICAL (08:11)
[2022-08-29] MEDS: Juven (unflavored) Packet 1 PACKET PO ×2 (08:11→17:26)
[2022-08-29] MEDS: Enoxaparin 40 MG/0.4 ML Syringe SC (08:12)
[2022-08-29] MEDS: Sertraline 100 MG Tablet PO (08:12)
[2022-08-29] MEDS: Glucerna Shake 120 ML LIQUID PO ×4 (08:20→22:24)
[2022-08-29] MEDS: Senna/Docusate Sodium 1 Tablet 2 TABLET PO (08:21)
--- NOTE | 2022-08-29 08:58 | PN.HOSP_ITS ---
Reason for Visit Reason for Visit: Diagnoses Obstructive sleep apnea (adult) (pediatric) (08/26/22) Non-pressure chronic ulcer of other part of left foot with fat layer exposed (08/26/22) Other acute osteomyelitis, left ankle and foot (08/26/22) Osteomyelitis, unspecified (08/26/22) Personal history of other endocrine, nutritional and metabolic disease (08/26/22) Dependence on other enabling machines and devices (08/26/22) Subjective Subjective Moving left upper extremity more easily and able to use extremity, much less pain. Minimal pain in foot, no other acute complaints Objective Data Objective Data Vital Signs: Vital Signs Temp Pulse Resp BP Pulse Ox O2 Del Method 98.1 F 68 15 105/68 95 Room Air 08/29/22 08:05 08/29/22 08:05 08/29/22 08:05 08/29/22 08:05 08/29/22 08:05 08/29/22 08:23 Oxygen Delivery Method Room Air Weight: 94.6 kg Body Mass Index (BMI) 30.8 Intake & Output: Intake and Output for Last 24 Hours 08/27/22 08/28/22 08/29/22 23:59 23:59 23:59 Intake Total 1935 / 1935 2980.75 / 3230.75 500 / 500 Output Total 350 / 350 1665 / 2340 675 / 675 Balance 1585 / 1585 1315.75 / 890.75 -175 / -175 Lab / Micro Data 08/29/22 05:45 08/29/22 05:45 Labs: Laboratory Results - last 24 hr 08/28/22 05:24: Total Creatine Kinase 90 08/28/22 09:12: Lactic Acid 1.4 08/28/22 11:30: POC Glucose 187 H 08/28/22 17:32: POC Glucose 184 H 08/28/22 21:38: POC Glucose 213 H 08/29/22 05:45: WBC 11.2 H, RBC 3.54 L, Hgb 10.8 L, Hct 33.3 L, MCV 94.1 H, MCH 30.5, MCHC 32.4, RDW Std Deviation 41.0, RDW Coeff of Bucky 11.8, Plt Count 255, MPV 9.4, Immature Gran % (Auto) 0.900, Neut % (Auto) 72.0 H, Lymph % (Auto) 12.4 L, [place] % (Auto) 12.2 H, Eos % (Auto) 2.1, Baso % (Auto) 0.4, Absolute Neuts (auto) 8.0 H, Absolute Lymphs (auto) 1.39, Nucleated RBC % 0, Sodium 134 L, Potassium 4.4, Chloride 104, Carbon Dioxide 26.0, Anion Gap 4 L, BUN 33 H, Creatinine 1.09, Estim Creat Clear Calc 54.95, Est GFR (MDRD) Af Amer 84, Est GFR (MDRD) Non-Af 69, BUN/Creatinine Ratio 30.3 H, Glucose 232 H, Calcium 9.2, Total Bilirubin 0.40, AST 13 L, ALT 19, Alkaline Phosphatase 60, Total Protein 7.7, Albumin 2.9 L, Globulin 4.8 H, Albumin/Globulin Ratio 0.6 L 08/29/22 06:48: POC Glucose 213 H Micro: Microbiology 08/26/22 12:00 Blood Culture (Wb) - Anticubital Left Blood Culture - Preliminary No growth in 48 hours. 08/26/22 12:15 Blood Culture (Wb) - Anticubital Right Blood Culture - Preliminary No growth in 48 hours. 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 Alpha hemolytic organism Physical Exam Narrative General: Alert, oriented, no apparent distress HEENT: Atraumatic, normocephalic Eyes: Anicteric, normal conjunctiva, extraocular movements grossly intact Neck: Supple Respiratory: Clear to auscultation bilaterally, normal respiratory effort Cardiovascular: Regular rate and rhythm GI: Soft, nontender, nondistended Extremities: No edema Musculoskeletal: Moving all extremities Neuro: No overt focal neurological deficits Skin: Left foot wrapped Psych: Cooperative Assessment & Plan Assessment/Plan (1) Osteomyelitis of great toe of left foot: (2) History of diabetes mellitus, type II: (3) EDILIA on CPAP: PLAN: Plan #Osteomyelitis of L great toe -Seen on plain film x-ray -Additionally has some surrounding cellulitis -No elevation white blood cell count but there is a left shift, CRP is 56.8 -Blood cultures obtained, wound culture from 08/24 growing Klebsiella and a gram- positive organism and gram-positive adrian that have yet to speciate -Broad spectrum abx -Pod c/s -wound care c/s -NPO -Gentle hydration -Pain control -08/27: Awaiting MRI of toe, plan is for patient to go to the OR today, continue antibiotics, cultures pending -08/28: MRI 08/27 with osteo and probable septic arthritis of first toe interphalangeal joint with cortical erosions as well as air extending into the soft tissues and joint space with mild joint effusion. Myositis and cellulitis foot. 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 Wolfe. Pain control, awaiting cultures, continue antibiotics. Will likely need ID consult but culture still pending -08/29: Continue to monitor cultures, will consult ID for evaluation tomorrow for antibiotic plan. Continue current antibiotics #Left arm pain -Was noted last night with pain from shoulder and elbow, troponins were negative, EKG no STEMI -Ordered lactic acid and CK are before going to evaluate so as not to delay work-up, CK within normal limits and lactic pending -After evaluating it seems this is musculoskeletal in nature. Seems that as anesthesia wore off patient had progressive pain from right under shoulder down towards elbow on the left side with occasional going past elbow, difficulty describing the pain. It is improved when he does not move it and exacerbated with certain movements and improves with pain medication. Suspect this is musculoskeletal, his exam was negative for swollen joints, no tenderness on palpation, no point tenderness. Do not feel there is any indication for imaging, no swelling that would lead to suspicion for blood clot so do not feel we need urgent duplex at this time. We will schedule Tylenol and lidocaine patch, patient advised if this changes at all or is not improving to let me know. Discussed with patient's RN -08/29: Improving today, wants more support to musculoskeletal, supportive care #Type 2 diabetes mellitus -Glucose checks and sliding scale insulin -Hold home oral hypoglycemics -A1c on 08/12/2022 was 7.3 -08/27: Continue glucose checks and sliding scale insulin, it is possible that we may be able to DC sliding scale if patient is well controlled without it -08/28: Well-controlled, continue current management -08/29: Continue to adjust as necessary, continue sliding scale insulin #EDILIA -Advise CPAP nightly if applicable #Macrocytic anemia -Present over the past month with no values until a year prior to that -Can undergo outpatient work-up if applicable -At this time is stable -08/27: Dropped slightly to 10.5, no overt signs or symptoms of bleeding, may be dilutional given fluids. Will monitor -08/28: Stable -08/29: 10.8, stable #DVT ppx: Lovenox subcu Babs Lawrence MD Time spent in the patient's overall evaluation,decision-making process, review of diagnostic data, adjustment of management, discussion with other providers, nursing nursing and ancillary staff involved in patient's care documentation, 40 minutes Charges/Coding Visit Charges Inpatient E&M: 12235 Subs Hosp L2
[2022-08-29 11:41] LABS: Bedside Glucose 274 mg/dL (74-106)
[2022-08-29 14:52] VITALS: BP 153/62; PULSE 77; RESP 15; TEMP 36.6; O2SAT 98
[2022-08-29 17:57] LABS: Bedside Glucose 226 mg/dL (74-106)
[2022-08-29 22:40] LABS: Bedside Glucose 192 mg/dL (74-106)
[2022-08-29 23:47] VITALS: BP 145/61; PULSE 71; RESP 18; TEMP 37.1; O2SAT 96
[2022-08-30] MEDS: Vancomycin IV 1,000 MG/200 ML BAG 200 MG IV ×2 (01:08→13:01)
[2022-08-30 01:46] LABS: Vancomycin, Trough Level 15.8 ug/mL (5.0-15.0)
--- NOTE | 2022-08-30 01:53 | PHA.PHARE_ITS ---
Consult Antibiotic Management Pharmacy has been consulted to manage selected antiobiotic: Vancomycin Type of Intervention Type of Consult: Follow-up Suspected Infection Suspected Infection: Osteomyelitis Labs Labs: Sodium 134 mmol/L (136-145) L 08/29/22 05:45 Potassium 4.4 mmol/L (3.5-5.1) 08/29/22 05:45 Chloride 104 mmol/L (98-107) 08/29/22 05:45 Carbon Dioxide 26.0 mmol/L (21.0-32.0) 08/29/22 05:45 Anion Gap 4 (5-15) L 08/29/22 05:45 BUN 33 mg/dL (7-18) H 08/29/22 05:45 Creatinine 1.09 mg/dL (0.70-1.30) 08/29/22 05:45 Est GFR (MDRD) Af Amer 84 mL/min (>60) 08/29/22 05:45 Est GFR (MDRD) Non-Af 69 mL/min (>60) 08/29/22 05:45 BUN/Creatinine Ratio 30.3 RATIO (10-20) H 08/29/22 05:45 Glucose 232 mg/dL (74-106) H 08/29/22 05:45 Vancomycin Trough 15.8 ug/mL (5.0-15.0) H 08/30/22 00:34 Microbiology Microbiology: Microbiology 08/27/22 15:13 Tissue - Great Toe Gram Stain - Final 08/27/22 15:13 Tissue - Great Toe Wound Culture - 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 08/26/22 12:15 Blood Culture (Wb) - Anticubital Right Blood Culture - Preliminary No growth in 48 hours. Dosing Weight Weight used for dosin.6 kg Estimated Creatinine Clearance Estimated Creatinine Clearance: 55 Goal Trough Goal Trough: 15-20 mcg/mL Pharmacy Plan for Drug Dosing Pharmacy Plan for Drug Dosing: Vancomycin trough level of 15.8, drawn 12 hours post-dose, was still within target range of 15-20. Will continue dosing at 1000mg q12h and re-draw a trough level in 4 days. Pharmacy Service will continue to monitor and adjust dosing as required. Follow-Up Labs Follow-Up Labs: Trough: Vancomycin Date/Time Labs Ordered Labs to be done on [date and time ordered]: 09/03/22 @0030
[2022-08-30 04:12] VITALS: BP 141/54; PULSE 63; RESP 16; TEMP 36.6; O2SAT 97
[2022-08-30] MEDS: Acetaminophen 500 MG Tablet 1000 MG PO ×2 (05:30→13:02)
[2022-08-30 05:51] LABS: Absolute Lymphocyte Count 1.46 X10^3/uL (0.83-4.51); Absolute Neutrophil Count 6.6 X10^3/uL (2.0-7.7); Basophil# 0.06 X10^3/uL; Basophil% 0.6 % (0-1); Eosinophil# 0.33 X10^3/uL; Eosinophils% 3.4 % (0-5); Hematocrit 31.7 % (40-54); Hemoglobin 10.4 g/dL (13.0-16.5); Lymphocyte # 1.46 X10^3/ul (0.83-4.51); Mean Corp Hgb Conc 32.8 g/dL (32-36); Mean Corpuscular Hgb 30.6 pg (27.0-32.0); Mean Corpuscular Volume 93.2 fL (80-94); Mean Platelet Vol. 9.4 fl (6.2-12.0); Monocyte# 1.18 X10^3/uL; Monocyte% 12.1 % (0-10); NRBC Flagged by Analyzer 0 % (0-5); Neutrophil # 6.62 X10^3/uL (2.7-7.7); Neutrophil % 67.9 % (47-70); Platelet Count 264 K/mm3 (150-450); RBC Distribution Width CV 11.9 % (11.6-14.6); RBC Distribution Width SD 40.2 fl (35.1-43.9); White Blood Count 9.8 K/mm3 (4.4-11.0)
[2022-08-30] MEDS: Insulin Lispro 100 UNIT/ML INSULN.PEN SC ×3 (06:29→16:14)
[2022-08-30 06:41] LABS: ALB/GLOB Ratio 0.6 RATIO (0.9-2.4); AST(SGOT) 11 U/L (15-37); Alanine Aminotransfer ALT/SGPT 17 U/L (16-61); Albumin, Serum 2.7 g/dL (3.2-5.0); Alkaline Phosphatase 55 U/L (45-117); Anion Gap 7 (5-15); BUN 38 mg/dL (7-18); Calcium,Total 9.3 mg/dL (8.5-10.1); Chloride 106 mmol/L (98-107); Creatinine, Serum 0.95 mg/dL (0.70-1.30); EST Glomerular Filtration Rate 81 mL/min (>60); Est Glom Filt Rate - Afr Amer 98 mL/min (>60); Estimated Creatinine Clearance 63.05 ml/min; Globulin 4.9 g/dL (2.2-4.2); Glucose 220 mg/dL (74-106); Potassium 4.1 mmol/L (3.5-5.1); Protein, Total 7.6 g/dL (6.4-8.2); Sodium Level 138 mmol/L (136-145)
[2022-08-30 06:49] VITALS: BP 152/65; PULSE 68; RESP 16; TEMP 36.8; O2SAT 99
[2022-08-30] MEDS: Juven (unflavored) Packet 1 PACKET PO ×2 (07:55→16:07)
[2022-08-30] MEDS: Lidocaine 5% Patch 1 PATCH TOPICAL (07:55)
--- NOTE | 2022-08-30 09:01 | PN.HOSP_ITS ---
Reason for Visit
--- NOTE | 2022-08-30 09:01 | PCM.PN.HOSP ---
Reason for Visit Reason for Visit: Diagnoses Obstructive sleep apnea (adult) (pediatric) (08/26/22) Non-pressure chronic ulcer of other part of left foot with fat layer exposed (08/26/22) Other acute osteomyelitis, left ankle and foot (08/26/22) Osteomyelitis, unspecified (08/26/22) Personal history of other endocrine, nutritional and metabolic disease (08/26/22) Dependence on other enabling machines and devices (08/26/22) Subjective Subjective Patient is a 77-year-old gentleman who was admitted from the [facility] with left great toe infection Objective Data Objective Data Vital Signs: Vital Signs Temp Pulse Resp BP Pulse Ox O2 Del Method 98.3 F 68 16 152/65 H 99 Room Air 08/30/22 06:49 08/30/22 06:49 08/30/22 06:49 08/30/22 06:49 08/30/22 06:49 08/30/22 08:55 Oxygen Delivery Method Room Air Weight: 94.6 kg Body Mass Index (BMI) 30.8 Intake & Output: Intake and Output for Last 24 Hours 08/28/22 08/29/22 08/30/22 23:59 23:59 23:59 Intake Total 2980.75 / 3230.75 2200 / 2440 490 / 490 Output Total 1665 / 2340 1725 / 2275 1950 / 1950 Balance 1315.75 / 890.75 475 / 165 -1460 / -1460 Lab / Micro Data 08/30/22 05:09 08/30/22 05:09 Labs: Laboratory Results - last 24 hr 08/29/22 11:14: POC Glucose 274 H 08/29/22 17:23: POC Glucose 226 H 08/29/22 22:11: POC Glucose 192 H 08/30/22 00:34: Vancomycin Trough 15.8 H 08/30/22 05:09: WBC 9.8, RBC 3.40 L, Hgb 10.4 L, Hct 31.7 L, MCV 93.2, MCH 30.6, MCHC 32.8, RDW Std Deviation 40.2, RDW Coeff of Bucky 11.9, Plt Count 264, MPV 9.4, Immature Gran % (Auto) 1.000 H, Neut % (Auto) 67.9, Lymph % (Auto) 15.0 L, [place] % (Auto) 12.1 H, Eos % (Auto) 3.4, Baso % (Auto) 0.6, Absolute Neuts (auto) 6.6, Absolute Lymphs (auto) 1.46, Nucleated RBC % 0, Sodium 138, Potassium 4.1, Chloride 106, Carbon Dioxide 25.0, Anion Gap 7, BUN 38 H, Creatinine 0.95, Estim Creat Clear Calc 63.05, Est GFR (MDRD) Af Amer 98, Est GFR (MDRD) Non-Af 81, BUN/Creatinine Ratio 40.0 H, Glucose 220 H, Calcium 9.3, Total Bilirubin 0.30, AST 11 L, ALT 17, Alkaline Phosphatase 55, Total Protein 7.6, Albumin 2.7 L, Globulin 4.9 H, Albumin/Globulin Ratio 0.6 L Micro: Microbiology 08/27/22 15:13 Tissue - Great Toe Gram Stain - Final 08/27/22 15:13 Tissue - Great Toe Wound Culture - Preliminary Klebsiella pneumoniae ozaenae Streptococcus mitis Staphylococcus species 08/26/22 12:00 Blood Culture (Wb) - Anticubital Left Blood Culture - Preliminary No growth in 48 hours. 08/26/22 12:15 Blood Culture (Wb) - Anticubital Right Blood Culture - Preliminary No growth in 48 hours. Physical Exam Narrative GENERAL: cooperative HEENT: Atraumatic; normocephalic EYES; Anicteric, Normal Conjunctiva NECK; supple, normal thyroid, RESPIRATORY: Diminished to auscultation CARDIOVASCULAR: Regular S1 S2, GI: soft, normoactive bowel sounds, : No Renal angle tenderness; EXTREMITIES: Left foot in surgical dressing MUSCULOSKELETAL: no muscle wasting NEURO: Awake; no lateralizing signs. SKIN: No Rash PSYCH; Flat affect Assessment & Plan Assessment/Plan (1) Osteomyelitis of great toe of left foot: (2) History of diabetes mellitus, type II: (3) EDILIA on CPAP: PLAN: Plan Patient is a 77-year-old gentleman who was admitted from the wound care center with left great toe infection 1. Osteomyelitis of the left great toe ? Patient underwent partial first ray amputation of the left foot with rotational flap on 08/27/[address] Wolfe on 08/28/2022 cultures sent results pending. Patient remains on broad-spectrum antibiotic therapy with consultation placed to ID 2. Diabetes mellitus type II -patient's oral hypoglycemics held. Placed on long acting insulin, Accu-Cheks a.c. and at bedtime and covered with sliding scale insulin 3. Class I obesity with BMI of 30.8 ? Weight loss advised 4. Anemia - Secondary to chronic disorder monitoring H&H and transfuse if patient becomes symptomatic or hemoglobin falls below 7 5. Obstructive sleep apnea ? CPAP at night 6. DVT prophylaxis ? SC Lovenox Time spent in the patient's overall evaluation,decision-making process, review of diagnostic data, adjustment of management, discussion with other providers, nursing nursing and ancillary staff involved in patient's care documentation, 35 minutes Charges/Coding Visit Charges Inpatient E&M: 80957 Subs Hosp L2
[2022-08-30] MEDS: Enoxaparin 40 MG/0.4 ML Syringe SC (09:42)
[2022-08-30] MEDS: Sertraline 100 MG Tablet PO (09:42)
--- NOTE | 2022-08-30 10:30 | CASEMGMT ---
RN CM Follow-up: This RN CM face to face with pt. Pt alert and agreeable to discussing dc needs. Reviewed need for home health at discharge for wound care. Pt remains agreeable and states his has the home health list of providers. States he thinks [facility] is their preferred provider but requests that this RN CM check back after his arrives. Ирина Hannah RN CM
--- NOTE | 2022-08-30 11:50 | CASEMGMT ---
Addendum entered and electronically signed by Mirtha Hannah RN 08/30/22 11:57: Also discussed additional DME needs. Pt states he has a walker and crutches. Family purchased a knee scooter for him to use also. Pt and concerned with getting up the three steps into the home but states their son will be assisting and pt feels he can navigate the steps. There is one handrail available with these steps. Ирина Hannah RN CM Original Note: MAYNOR HEATON Follow-up: MAYNOR HEATON returned to pt's bedside. Pt's now present. Introduced self and role at [facility]. Reviewed need for home health provider preference. Pt's states their preferred provider is [facility]. Discussed possible need for home IV Atbs in addition to wound care. Pt's states she has been performing pt's wound care since June and would be willing to learn how to give IV antibiotics if needed. Referral sent via [facility] and call to Nafisa at [facility] per pt and his 's preference. Nafisa to review and notify this MAYNOR HEATON of determination of acceptance. Ирина Hannah RN CM
[2022-08-30 12:15] VITALS: BP 122/68; PULSE 64; RESP 16; TEMP 36.1; O2SAT 95
--- NOTE | 2022-08-30 13:33 | CASEMGMT ---
Addendum entered and electronically signed by Mirtha Hannah RN 08/30/22 16:45: Per discussion with Dr. Lam, pt will be discharged on PO Atb. Dr. Pennington notified. This MAYNOR HEATON met with pt face to face with at bedside. Reviewed discharge plan with [facility] SOC on Tuesday, 09/01, Dsg to remain intact until f/u appointment. Appointment not yet made, but states she will call first thing in the morning to schedule. States pt has an appointment with his PCP scheduled for 09/14. No additional needs identified. DC Plan: Home with [facility] for SN, PT/OT, and PO atb. Ирина Hannah RN CM Addendum entered and electronically signed by Mirtha Hannah RN 08/30/22 14:58: Dr. Wolfe relayed that pt can weight bear on his heel for balance but not to pivot over forefoot. Discussed this with BUSINESS CONTINUITY MANAGER who states pt can do so while going up stairs sideways which they practiced and pt was able to perform. This MAYNOR HEATON met with pt and pt's face to face and discussed and pt confident he would be able to navigate steps using only heel touch for balance. Relayed acceptance by [facility] for home health services with pending SOC date of 09/01 (first SOC date available). Will continue to watch for determination for antibiotic route at discharge. Ирина Hannah RN CM Original Note: MAYNOR HEATON Follow-up: Per Nafisa at [facility], pt has been accepted with earliest start of care date available being Tuesday, 09/01. Awaiting determination of IV Atb need at DC to eval if this date will be appropriate. Pt participated in therapy and will need to have the ability to weight bear to this left heel to navigate steps. Backline to Dr. Wolfe to clarify pt's ability weight bear to his left heel. Will continue to follow and assist with DC needs as they are clarified. Ирина Hannah RN CM
--- NOTE | 2022-08-30 14:32 | WOUNDNOTE ---
Orders per podiatry are leave dressing to the left foot clean, dry, and intact. did not remove. will follow as needed.
[2022-08-30 16:03] VITALS: BP 163/67; PULSE 66; RESP 16; TEMP 36.9; O2SAT 97
--- NOTE | 2022-08-30 16:08 | PCM.CONS.GEN ---
Assessment & Plan Assessment/Plan (1) Osteomyelitis of great toe of left foot: PLAN: Wound cx and surg cx with strep, klebs, MS-CoNS, anaerobes, diphtheroids. Taken to OR 08/27/[address] Wolfe for L 1st toe resection. 1 MTP sample sent to path. Ok for d/c home on 10 days po doxy/augmentin. If path shows residual infection, abx will need to be extended for 6 weeks total. Will follow, thank you, d/w correctional casework specialist, wrote abx rx (2) Diabetes mellitus with diabetic polyneuropathy: HPI Consult Data Date of Consult: 08/30/22 HPI Narrative Reason for Consultation: osteo HPI Narrative: TALON NUNES, is a 77 M with DM, presented 08/26 with 2 months progressive L 1st toe pain, ulceration, swelling. Started when he cut himself while trying to treat his corn at home. Had a lot of bleeding, PCP gave pill antibiotics for a few courses. Bactrim made him throw up. Referred to wound center. Toe rapidly worsened over 2-3 days prior to admit. No fever or chills. Taken to OR 08/[address] Berg for toe amputation. Feeling ok, no n/v/d. Full ROS performed and neg except as noted above. [facility] Medical History COVID-19 Diabetes mellitus Esophageal reflux Family history of hemochromatosis Mixed hyperlipidemia EDILIA on CPAP Osteoarthritis Prostate CA Pulmonary embolism Sebaceous cyst Sleep apnea Type 2 diabetes mellitus Home Medications sertraline 100 mg tablet 100 mg PO DAILY 05/02/20 [History Last Taken 08/25/22] metformin 500 mg tablet 500 mg PO BID 09/22/21 [History Last Taken 08/25/22] amoxicillin 875 mg-potassium clavulanate 125 mg tablet 1 tab PO BID #20 tabs 08/30/22 [Rx Last Taken Unknown] doxycycline hyclate 100 mg capsule 100 mg PO BID #20 caps 08/30/22 [Rx Last Taken Unknown] Allergy/AdvReac Type Severity Reaction Status Date / Time No Known Allergies Allergy Verified 08/26/22 11:33 Family History Brother Hemochromatosis Sister Hemochromatosis Brother Heart disease Surgical History History of left hip replacement History of right hip replacement History of tonsillectomy and adenoidectomy Social History (Updated 08/26/22 @ 14:16 by Carlyn Gage) household members: spouse Smoking Status: Never smoker alcohol intake: never substance use type: does not use caffeine: Yes Type: coffee Number of servings: 1 Physical Exam Const alert, oriented x3 and no apparent distress General Appearance: cooperative HEENT normocephalic and head/scalp atraumatic Eyes PERRL and EOMs intact bilaterally Neck supple and No nodes Resp normal air movement and clear to auscultation bilaterally Cardio regular rate and regular rhythm GI soft to palpation, non-tender and non-distended Extremity General Extremity: Negative for edema Skin Skin Narrative: reviewed before and after photos of L foot Neuro CN's II-XII intact bilaterally Lab / Micro Data Attestation: I reviewed the patient's lab results. 08/30/22 05:09 08/30/22 05:09 Labs: Laboratory Results - last 24 hr 08/29/22 17:23: POC Glucose 226 H 08/29/22 22:11: POC Glucose 192 H 08/30/22 00:34: Vancomycin Trough 15.8 H 08/30/22 05:09: WBC 9.8, RBC 3.40 L, Hgb 10.4 L, Hct 31.7 L, MCV 93.2, MCH 30.6, MCHC 32.8, RDW Std Deviation 40.2, RDW Coeff of Bucky 11.9, Plt Count 264, MPV 9.4, Immature Gran % (Auto) 1.000 H, Neut % (Auto) 67.9, Lymph % (Auto) 15.0 L, [place] % (Auto) 12.1 H, Eos % (Auto) 3.4, Baso % (Auto) 0.6, Absolute Neuts (auto) 6.6, Absolute Lymphs (auto) 1.46, Nucleated RBC % 0, Sodium 138, Potassium 4.1, Chloride 106, Carbon Dioxide 25.0, Anion Gap 7, BUN 38 H, Creatinine 0.95, Estim Creat Clear Calc 63.05, Est GFR (MDRD) Af Amer 98, Est GFR (MDRD) Non-Af 81, BUN/Creatinine Ratio 40.0 H, Glucose 220 H, Calcium 9.3, Total Bilirubin 0.30, AST 11 L, ALT 17, Alkaline Phosphatase 55, Total Protein 7.6, Albumin 2.7 L, Globulin 4.9 H, Albumin/Globulin Ratio 0.6 L Micro: Microbiology 08/27/22 15:13 Tissue - Great Toe Gram Stain - Final 08/27/22 15:13 Tissue - Great Toe Wound Culture - Preliminary Klebsiella pneumoniae ozaenae Streptococcus mitis Staphylococcus species Gram positive adrian 08/27/22 15:13 Tissue - Great Toe Anaerobic Culture - Preliminary Checking for anaerobes, further studies to follow.
--- NOTE | 2022-08-30 16:25 | DS.PCM_ITS ---
Providers Date of Admission: 08/26/22 Date of Discharge: 08/30/22 Primary Care Physician: Isela King, Consultations 08/26/22 13:49 Consult: Onc/Wound/gas welding equipment mechanic Routine Comment: Reason for Consult:: L great toe osteo Consult: Podiatry Routine Consulting Provider: Andrés Wolfe Reason for Consult: L great toe osteo EMERGENT Consult: No MD Notified: Yes Date Notified: 08/26/22 Time Notified: 13:02 Method of Notification: ED Physician Initiated 08/30/22 05:55 Consult: Infectious Disease AM (NON MEDS) Consulting Provider: Himanshu Lam Reason for Consult: L toe osteo s/p surgery, cx pending EMERGENT Consult: No MD Notified: Yes Date Notified: 08/30/22 Time Notified: 06:34 Method of Notification: Answering Service Reason For Visit: OSTEO OF L GREAT TOE Diagnosis Discharge Diagnosis (1) Osteomyelitis of great toe of left foot: Status: Acute Code(s): M86.9 - Osteomyelitis, unspecified (2) Diabetes mellitus with diabetic polyneuropathy: Status: Acute Code(s): E11.42 - Type 2 diabetes mellitus with diabetic polyneuropathy Plan Patient is a 77-year-old gentleman who was admitted from the wound care center with left great toe infection 1. Osteomyelitis of the left great toe ? Patient underwent partial first ray amputation of the left foot with rotational flap on 08/27/[address] Wolfe on 08/28/2022 cultures sent results pending. Patient remains on broad-spectrum antibiotic therapy with consultation placed to ID 2. Diabetes mellitus type II -patient's oral hypoglycemics held. Placed on long acting insulin, Accu-Cheks a.c. and at bedtime and covered with sliding scale insulin 3. Class I obesity with BMI of 30.8 ? Weight loss advised 4. Anemia - Secondary to chronic disorder monitoring H&H and transfuse if patient becomes symptomatic or hemoglobin falls below 7 5. Obstructive sleep apnea ? CPAP at night 6. DVT prophylaxis ? SC Lovenox Time spent in the patient's overall evaluation,decision-making process, review of diagnostic data, adjustment of management, discussion with other providers, nursing nursing and ancillary staff involved in patient's care documentation, 35 minutes Medications at Discharge Home Medications sertraline 100 mg tablet 100 mg PO DAILY 05/02/20 metformin 500 mg tablet 500 mg PO BID 09/22/21 acetaminophen 500 mg tablet 1,000 mg (2 x 500 mg) PO Q8 #30 tabs 08/30/22 amoxicillin 875 mg-potassium clavulanate 125 mg tablet 1 tab PO BID #20 tabs 08/30/22 arginine 7 gram-glutam 7 gram-CaHMB 1.5 [id number] oral pwd pkt (Kip (with collagen)) 1 packet PO BIDCM 30 days #60 ea 08/30/22 doxycycline hyclate 100 mg capsule 100 mg PO BID #20 caps 08/30/22 lidocaine 5 % topical patch 1 patch topical DAILY #30 ea 08/30/22 Hospital Course Summary of Care Provided Minutes Spent on Discharge: 35 Physical Exam Narrative GENERAL: cooperative HEENT: Atraumatic; normocephalic EYES; Anicteric, Normal Conjunctiva NECK; supple, normal thyroid, RESPIRATORY: Diminished to auscultation CARDIOVASCULAR: Regular S1 S2, GI: soft, normoactive bowel sounds, : No Renal angle tenderness; EXTREMITIES: Left foot in surgical dressing MUSCULOSKELETAL: no muscle wasting NEURO: Awake; no lateralizing signs. SKIN: No Rash PSYCH; Flat affect Weight / BMI Weight Weight: 94.6 kg Body Mass Index (BMI) 30.8 ABG / Lab / Microbiology Data 08/30/22 05:09 08/30/22 05:09 Laboratory: Laboratory Results - last 24 hr 08/29/22 17:23: POC Glucose 226 H 08/29/22 22:11: POC Glucose 192 H 08/30/22 00:34: Vancomycin Trough 15.8 H 08/30/22 05:09: WBC 9.8, RBC 3.40 L, Hgb 10.4 L, Hct 31.7 L, MCV 93.2, MCH 30.6, MCHC 32.8, RDW Std Deviation 40.2, RDW Coeff of Bucky 11.9, Plt Count 264, MPV 9.4, Immature Gran % (Auto) 1.000 H, Neut % (Auto) 67.9, Lymph % (Auto) 15.0 L, [place] % (Auto) 12.1 H, Eos % (Auto) 3.4, Baso % (Auto) 0.6, Absolute Neuts (auto) 6.6, Absolute Lymphs (auto) 1.46, Nucleated RBC % 0, Sodium 138, Potassium 4.1, Chloride 106, Carbon Dioxide 25.0, Anion Gap 7, BUN 38 H, Creatinine 0.95, Estim Creat Clear Calc 63.05, Est GFR (MDRD) Af Amer 98, Est GFR (MDRD) Non-Af 81, BUN/Creatinine Ratio 40.0 H, Glucose 220 H, Calcium 9.3, Total Bilirubin 0.30, AST 11 L, ALT 17, Alkaline Phosphatase 55, Total Protein 7.6, Albumin 2.7 L, Globulin 4.9 H, Albumin/Globulin Ratio 0.6 L Microbiology: Microbiology 08/27/22 15:13 Tissue - Great Toe Gram Stain - Final 08/27/22 15:13 Tissue - Great Toe Wound Culture - Preliminary Klebsiella pneumoniae ozaenae Streptococcus mitis Staphylococcus species Gram positive adrian 08/27/22 15:13 Tissue - Great Toe Anaerobic Culture - Preliminary Checking for anaerobes, further studies to follow. 08/26/22 12:00 Blood Culture (Wb) - Anticubital Left Blood Culture - Preliminary No growth in 48 hours. 08/26/22 12:15 Blood Culture (Wb) - Anticubital Right Blood Culture - Prelim inary No growth in 48 hours. D/C Instructions Discharge Diet: 2000 Calorie Control Diet Discharge Activity: Return to Normal Activity Call your doctor if you observe: Fever of 101 or Higher, Shortness of breath, Fainting spells and Chest pain Meaningful Use Info Meaningful Use Diagnoses (Choose all that apply): None applicable Discharge Plan Admission Admit Date/Time: 08/26/22 12:54 Attending Provider: Pasquale Pennington Primary Care Provider: Isela King Consulting Providers: Andrés Wolfe; Babs Lawrence; Himanshu Lam Instructions Additional Instructions / Restrictions: keep dressing intact until follow up maintain nwb on surgical limb, can heel weightbear in surgical shoe for balance when transferring, but shoe avoid pivoting over forefoot Discharge Orders/Prescriptions Prescriptions: New doxycycline hyclate 100 mg capsule 100 mg PO BID Qty: 20 0RF amoxicillin-pot clavulanate 875-125 mg tablet 1 tab PO BID Qty: 20 0RF acetaminophen 500 mg Tablet 1,000 mg PO Q8 Qty: 30 0RF lidocaine 5 % Adhesive Patch,Medicated 1 patch topical DAILY Qty: 30 0RF Protocol: *Topical Application Instructions APPLICATION INSTRUCTIONS: apply to left arm Kip (with collagen) 7-7-1.5 gram Powder In Packet 1 packet PO BIDCM 30 Days Qty: 60 0RF Continued metformin 500 mg tablet 500 mg PO BID sertraline 100 MG tablet 100 mg PO DAILY Referrals / Follow Up: Anrdés Wolfe DPM [Med Staff - Active Staff] - Isela King DO [Primary Care Provider] - Disposition Disposition (needs filled in before D/C Order can be placed): Home Health Service Charges/Coding Visit Charges Inpatient E&M: 21274 Disch Hosp >30min
[2022-08-30 17:17] LABS: Bedside Glucose 257 mg/dL (74-106)
[2022-08-30 18:08] LABS: Bedside Glucose 355 mg/dL (74-106)
== END 2022-08-30 18:15 | disposition home health service (06) | DRG 617 ==
LOC: ED 12:31 → PCU 14:33
PROVIDERS: Hospitalist; Physician Assistant; Podiatrist; Admitting Provider Internal Medicine; Emergency Provider Emergency Medicine; PCP Family Medicine; Visit Provider Internal Medicine
PROC: 0Y6N0Z9 Detachment at Left Foot, Partial 1st Ray, Open Approach (ICD-10-PCS; principal; 2022-08-27 13:15)
DX: E11.69 Type 2 diabetes mellitus with other specified complication (principal); M86.172 Other acute osteomyelitis, left ankle and foot; E11.52 Type 2 diabetes mellitus with diabetic peripheral angiopathy with gangrene; L03.116 Cellulitis of left lower limb; E11.42 Type 2 diabetes mellitus with diabetic polyneuropathy; E11.621 Type 2 diabetes mellitus with foot ulcer; Z79.4 Long term (current) use of insulin; L97.522 Non-pressure chronic ulcer of other part of left foot with fat layer exposed; D53.9 Nutritional anemia, unspecified; I10 Essential (primary) hypertension; G47.33 Obstructive sleep apnea (adult) (pediatric); E78.5 Hyperlipidemia, unspecified; M60.9 Myositis, unspecified; B96.1 Klebsiella pneumoniae [K. pneumoniae] as the cause of diseases classified elsewhere; Z79.84 Long term (current) use of oral hypoglycemic drugs; Z86.16 Personal history of COVID-19; Z79.2 Long term (current) use of antibiotics; E66.9 Obesity, unspecified; Z68.30 Body mass index [BMI] 30.0-30.9, adult
CPT/HCPCS: 36415; 73630; 73718; 80048; 80053; 80202; 82550; 82962; 83605; 84484; 85025; 85610; 85652; 86140; 86850; 86900; 86901; 87015; 87040; 87070; 87075; 87077; 87102; 87116; 87176; 87186; 87205; 87206; 88304; 88305; 88311; 93005; 93923; 97116; 97162; 97530; 97802; 99213; 99284; J7030; J7040; J7050; J7120; A4216; G0463; J2405

== ENCOUNTER → 2022-11-26 | Outpatient (CLI) | payer MEDICARE, SELFPAY ==
[2022-11-26 17:00] LABS: PSA,Total- Diagnostic 0.36 ng/mL (0.0-4.0)
== END | disposition home or self-care (01) ==
LOC: LAB 16:06
PROVIDERS: PCP Family Medicine; Visit Provider Urology
DX: C61 Malignant neoplasm of prostate (principal)
CPT/HCPCS: 36415; 84153

== ENCOUNTER → 2023-04-11 | Outpatient (CLI) | payer MEDICARE, SELFPAY ==
[2023-04-11 15:16] LABS: Anion Gap 6 (5-15); BUN 29 mg/dL (7-18); BUN/Creat Ratio 29.9 RATIO (10-20); Calcium,Total 9.3 mg/dL (8.5-10.1); Chloride 110 mmol/L (98-107); Creatinine, Serum 0.97 mg/dL (0.70-1.30); EST Glomerular Filtration Rate 79 mL/min (>60); Est Glom Filt Rate - Afr Amer 96 mL/min (>60); Glucose 126 mg/dL (74-106); Potassium 4.3 mmol/L (3.5-5.1); Sodium Level 140 mmol/L (136-145)
== END | disposition home or self-care (01) ==
LOC: MFPLAB 12:26
PROVIDERS: Nurse Practitioner Family; PCP Family Medicine; Visit Provider Family Medicine
DX: E11.65 Type 2 diabetes mellitus with hyperglycemia (principal)
CPT/HCPCS: 36415; 80048

== ENCOUNTER → 2023-05-19 | Outpatient (CLI) | payer MEDICARE, SELFPAY ==
[2023-05-19 14:10] LABS: PSA,Total- Diagnostic 0.62 ng/mL (0.0-4.0)
== END | disposition home or self-care (01) ==
LOC: LAB 13:24
PROVIDERS: PCP Family Medicine; Referring Provider Urology; Visit Provider Urology
DX: C61 Malignant neoplasm of prostate (principal)
CPT/HCPCS: 36415; 84153

== ENCOUNTER → 2023-11-17 | Outpatient (CLI) | payer MEDICARE, SELFPAY ==
[2023-11-17 16:41] LABS: PSA,Total- Diagnostic 1.26 ng/mL (0.0-4.0)
== END | disposition home or self-care (01) ==
LOC: LAB 15:36
PROVIDERS: PCP Family Medicine; Referring Provider Urology; Visit Provider Urology
DX: C61 Malignant neoplasm of prostate (principal)
CPT/HCPCS: 36415; 84153

== ENCOUNTER → 2024-04-25 | Outpatient (CLI) | payer MEDICARE, SELFPAY ==
--- NOTE | 2024-04-25 11:29 | RAD_ITS ---
PROCEDURE: CHEST PA AND LATERAL 04/25/2024 REASON FOR EXAM: CHEST PAIN TECHNIQUE: Frontal and lateral views of the chest. COMPARISON: Comparison is made with prior study dated March 11, 2021. FINDINGS: There is blunting of the left costophrenic angle suggestive of a small left pleural effusion with left basilar atelectasis and/or early infiltrate. Borderline cardiomegaly. There are atherosclerotic calcifications of the thoracic aorta. Degenerative changes of the thoracic vertebrae. RAD/Chest PA and Lateral IMPRESSION: Blunting of the left costophrenic angle with increased markings at the left angela g base suggestive of either linear atelectasis and/or early infiltrate. Follow-up recommended. Reading Location: [place] [id number]
[2024-04-25 15:13] LABS: Hematocrit 36.8 % (40-54); Hemoglobin 12.4 g/dL (13.0-16.5); Mean Corp Hgb Conc 33.7 g/dL (32-36); Mean Corpuscular Hgb 31.6 pg (27.0-32.0); Mean Corpuscular Volume 93.6 fL (80-94); Mean Platelet Vol. 11.4 fl (6.2-12.0); Platelet Count 175 K/mm3 (150-450); RBC Distribution Width CV 13.3 % (11.6-14.6); RBC Distribution Width SD 45.8 fl (35.1-43.9); Red Blood Count 3.93 M/mm3 (4.6-6.2); White Blood Count 6.4 K/mm3 (4.4-11.0)
[2024-04-25 18:06] LABS: ALB/GLOB Ratio 1.5 RATIO (0.9-2.4); AST(SGOT) 27 U/L (<=37); Alanine Aminotransfer ALT/SGPT 22 U/L (<=46); Albumin, Serum 4.2 g/dL (3.4-4.8); Alkaline Phosphatase 69 U/L (40-129); Anion Gap 14 (5-15); BUN 30 mg/dL (4-19); BUN/Creat Ratio 28.4 RATIO (10-20); Calcium,Total 9.5 mg/dL (7.6-11.0); Carbon Dioxide 22.2 mmol/L (21.0-32.0); Chloride 104 mmol/L (98-108); Cholesterol 214 mg/dL (<=200); Creatinine, Serum 1.05 mg/dL (0.70-1.20); EST Glomerular Filtration Rate 71 (>60); Globulin 2.9 g/dL (2.2-4.2); Glucose 169 mg/dL (70-99); High Density Lipoprotein 62 mg/dL; Low Density Lipoprotein Calc. 120 mg/dL; Potassium 4.3 mmol/L (3.3-5.1); Protein, Total 7.1 g/dL (5.9-8.4); Sodium Level 140 mmol/L (133-145); Total Bilirubin 0.39 mg/dL (0.00-1.30); Triglycerides 161 mg/dL; Very Low Density Lipoprotein 32 mg/dL (5-40); cholesterol:hdl ratio screen 3.45
[2024-04-25 23:13] LABS: Hemoglobin A1c 7.3 % (<=5.6)
== END | disposition home or self-care (01) ==
PROVIDERS: PCP Family Medicine
DX: R07.9 Chest pain, unspecified (principal)
CPT/HCPCS: 36415; 71046; 80053; 80061; 83036; 85027

== ENCOUNTER → 2024-05-11 | Outpatient (CLI) | payer MEDICARE, SELFPAY ==
[2024-05-11 13:20] LABS: PSA,Total- Diagnostic 3.14 ng/mL (0.00-4.00)
== END | disposition home or self-care (01) ==
LOC: LAB 12:04
PROVIDERS: PCP Family Medicine; Referring Provider Urology; Visit Provider Urology
DX: C61 Malignant neoplasm of prostate (principal)
CPT/HCPCS: 36415; 84153

== ENCOUNTER → 2024-05-24 | Outpatient (CLI) | payer MEDICARE, SELFPAY ==
--- NOTE | 2024-05-24 13:00 | ECHOCS_ITS ---
Reason For Study Reason For Study: Abnormal EKG Procedure This was a 2D Doppler, Color Flow transthoracic echocardiogram. The study was technically difficult. Contrast injection was performed. Exam performed in department. Left Ventricle Moderately dilated left ventricle. Mild concentric left ventricular hypertrophy. The left ventricular ejection fraction is 30 %. There is moderate to severe global hypokinesis of the left ventricle. Right Ventricle Normal RV size. Normal systolic function. Mitral Valve There is moderate mitral annular calcification. Moderate (2+) eccentric mitral valve insufficiency. Aortic Valve Trisinus/trileaflet aortic valve. Mild focal aortic valve thickening. Mild (1+) aortic valve insufficiency. Pulmonic Valve Normal pulmonic valve. Great Vessels Normal aortic root. The pulmonary artery is normal size. Inferior vena cava collapse with respiration. Pericardium/Pleural No pericardial effusion. Medication 22 gauge I.V. with prn adaptor inserted into right arm. Diluted definity 1ml given slow IV push to enhance endocardial definition. MMode/2D Measurements & Calculations LVIDd: 6.0 cm IVSd: 1.2 cm LVOT diam: 2.0 cm LVIDs: 5.1 cm LVPWd: 1.4 cm LVOT area: 3.0 cm2 RVDd: 4.0 cm FS: 14.7 % Ao root diam: 3.5 cm LAV(MOD-bp): 72.9 ml LVAd ap4: 57.0 cm2 LAV(MOD-bp) Indexed: 33.7 ml/m2 LVLd ap4: 10.2 cm LAV(MOD-sp2): 83.4 ml EDV(MOD-sp4): 258.6 ml LAV(MOD-sp4): 60.8 ml EDV(sp4-el): 270.4 ml LVAs ap4: 45.8 cm2 LVLs ap4: 9.9 cm ESV(MOD-sp4): 169.6 ml ESV(sp4-el): 179.3 ml EF(MOD-sp4): 34.4 % EF(sp4-el): 33.7 % SV(MOD-sp4): 89.0 ml SV(MOD-sp2): 61.3 ml LVAd ap2: 47.2 cm2 LVLd ap2: 9.8 cm SI(MOD-sp4): 41.1 ml/m2 SI(MOD-sp2): 28.3 ml/m2 EDV(MOD-sp2): 181.8 ml EDV(sp2-el): 193.4 ml LVAs ap2: 37.0 cm2 LVLs ap2: 9.3 cm ESV(MOD-sp2): 120.5 ml ESV(sp2-el): 125.0 ml EF(MOD-sp2): 33.7 % SV(sp4-el): 91.1 ml Ao sinus diam: 3.[address] Junction: 3.1 cm Aortic Valve Planimetry: 1.8 cm2 LA A4 area: 21.5 cm2 LA dimension(2D): 4.6 cm TAPSE: 1.3 cm RA A4 area: 15.9 cm2 Time Measurements MV dec time: 0.24 sec Doppler Measurements & Calculations MV E max jose luis: 124.0 cm/sec Lat Peak E' Jose Luis: 5.6 cm/sec Med Peak E' Jose Luis: 5.4 cm/sec MV A max jose luis: 107.9 cm/sec E/E' lat: 22.2 E/E' med: 23.1 MV E/A: 1.1 MV V2 max: 159.7 cm/sec MV P1/2t max jose luis: 160.3 cm/sec Ao V2 max: 122.1 cm/sec MV max P.2 mmHg MV P1/2t: 80.8 msec Ao max P.0 mmHg MV V2 mean: 93.4 cm/sec MV dec slope: 581.0 cm/sec2 Ao V2 mean: 85.8 cm/sec MV mean P.1 mmHg Ao mean P.4 mmHg MV V2 VTI: 45.4 cm MVA(P1/2t): 2.7 cm2 Ao V2 VTI: 29.1 cm MVA(VTI): 1.2 cm2 AV (velocity ratio): 0.63 RIAZ(I,D): 1.9 cm2 RIAZ(V,D): 2.0 cm2 AI max jose luis: 336.2 cm/sec LV V1 max: 78.6 cm/sec MR max jose luis: 517.0 cm/sec AI max P.4 mmHg LV V1 max P.5 mmHg MR max P.9 mmHg AI dec slope: 207.4 cm/sec2 LV V1 mean P.4 mmHg MR mean jose luis: 386.5 cm/sec AI P1/2t: 474.9 msec LV V1 mean: 57.1 cm/sec MR mean P.3 mmHg LV V1 VTI: 18.4 cm MR VTI: 177.7 cm SV(LVOT): 56.0 ml ECHO/Echo Complete W/ Contrast Interpretation Summary Moderately dilated left ventricle. Mild concentric left ventricular hypertrophy. The left ventricular ejection fraction is 30 %. There is moderate to severe global hypokinesis of the left ventricle. Contrast injection was performed. Ordering Physician: Tushar Mcbride Referring Physician: Tushar Mcbride Performed By: Phil Bauer RCS
== END | disposition home or self-care (01) ==
LOC: CVS 12:55
PROVIDERS: PCP Family Medicine; Referring Provider Family Medicine; Visit Provider Family Medicine
DX: R94.31 Abnormal electrocardiogram [ECG] [EKG] (principal)
CPT/HCPCS: 93306; Q9957; A4216; C8929

== ENCOUNTER 2024-06-14 09:28 | Day surgery (SDC) | payer MEDICARE, SELFPAY ==
[2024-06-08 11:42] LABS: Absolute Lymphocyte Count 1.08 X10^3/uL (0.83-4.51); Absolute Neutrophil Count 3.3 X10^3/uL (2.0-7.7); Basophil# 0.04 X10^3/uL; Basophil% 0.8 % (0-1); Eosinophil# 0.18 X10^3/uL; Eosinophils% 3.6 % (0-5); Hematocrit 37.2 % (40-54); Hemoglobin 12.5 g/dL (13.0-16.5); Lymphocyte # 1.08 X10^3/ul (0.83-4.51); Lymphocyte % 21.8 % (19-41); Mean Corp Hgb Conc 33.6 g/dL (32-36); Mean Corpuscular Hgb 31.1 pg (27.0-32.0); Mean Corpuscular Volume 92.5 fL (80-94); Mean Platelet Vol. 11.4 fl (6.2-12.0); Monocyte# 0.37 X10^3/uL; Monocyte% 7.5 % (0-10); NRBC Flagged by Analyzer 0 % (0-5); Neutrophil # 3.27 X10^3/uL (2.7-7.7); Neutrophil % 66.1 % (47-70); Platelet Count 173 K/mm3 (150-450); RBC Distribution Width SD 43.8 fl (35.1-43.9); Red Blood Count 4.02 M/mm3 (4.6-6.2)
[2024-06-08 11:52] LABS: Prothrombin Time (Protime)PT. 13.7 SECONDS (11.7-14.9)
[2024-06-08 12:28] LABS: Anion Gap 15 (5-15); BUN 52 mg/dL (4-19); BUN/Creat Ratio 41.1 RATIO (10-20); Calcium,Total 9.4 mg/dL (7.6-11.0); Carbon Dioxide 22.5 mmol/L (21.0-32.0); Chloride 102 mmol/L (98-108); Creatinine, Serum 1.27 mg/dL (0.70-1.20); EST Glomerular Filtration Rate 57 (>60); Glucose 310 mg/dL (70-99); Potassium 4.4 mmol/L (3.3-5.1); Sodium Level 139 mmol/L (133-145)
[2024-06-13 07:47] VITALS: BMI 31.3
--- NOTE | 2024-06-14 11:01 | CL.D_ITS ---
Patient Name: TALON NUNES Study Date: 06/14/2024 Performing: Zoila Umana MD Ht: 69 inches 175.26 cm : 1945 Wt: 212 lbs 96.16 kg Age: 79 Gender: male BSA: 2.12 PROCEDURE(S) PERFORMED [id number])[facility] CLINICAL PROFILE AND INDICATIONS Indications: Suspected CAD Heart Failure: Newly Diagnosed: Yes, NYHA Class: 2, Heart Failure Type: Systolic Stress/Imaging Stress/Image Study Performed: No CONCLUSIONS Severe multivessel disease including RECHARGER Prox LAD (LAD filling retrogradely via collaterals from RPDA) RECOMMENDATIONS Surgery consult for coronary revascularization DESCRIPTION OF PROCEDURE The patient arrived to the procedure lab. The risks and benefits of the procedure as well as a full description of our services here and current unavailability of surgical backup were fully explained to the patient and/or their significant other prior to the catheterization. The Timeout was completed, verifying the correct patient and procedure. The patient's procedural site was prepped and draped in the usual fashion. Local anesthetic was given subcutaneously to right radial region with Lidocaine 2%. Using a modified Seldinger technique, arterial access was obtained via the right radial artery, a 6Fr sheath was inserted. Right Coronary Artery selective angiography was then performed in multiple views using a 5 Fr. 4.0 [place] catheter. Left Coronary Artery selective angiography was performed in multiple views using a 5 Fr. 4.0 [place] catheter.The arterial sheath was pulled and a TR Band was applied for hemostasis 12 ml of air CORONARY ANGIOGRAPHY DOMINANCE: Right Dominant LEFT MAIN: Angiographically normal LEFT ANTERIOR DESCENDING ARTERY: LAD: Calcified 100% Proximal lesion in LAD OM 1: Tubular 95% Ostial lesion in MARG2 Tubular 80% Mid lesion in MARG1 Tubular Calcified 80% Ostial lesion in MARG1 OM 2: Tubular 95% Ostial lesion in MARG2 Tubular 80% Mid lesion in MARG1 Tubular Calcified 80% Ostial lesion in MARG1 RIGHT CORONARY ARTERY: RCA: Calcified 70% Mid lesion in RCA RT PDA: Tubular 90% Ostial lesion in RT PDA COLLATERAL FLOW: Collateral flow from RT PDA to SEP Collateral flow from RT PDA to SEP Collateral flow from RT PDA to LAD COMPLICATIONS No Complications PROCEDURE MEDICATIONS Fentanyl 50 mcg IV Versed 1 mg IV Oxygen: 2 L/min via nasal cannula Heparin given IA 06/14/2024 10:25:36 Verapamil 2.5mg, Ntg 200mcgs, 2000 units of Heparin given IA 06/14/2024 10:25:36 SUMMARY OF HEMODYNAMIC DATA Time AIR REST ECG 09:52:21 AO 88/37 (59) SA 10:30:55 AO 115/52 (76) 10:35:23 Signed By Zoila Umana MD On 06/14/2024 11:00:53 Zoila Umana MD
== END 2024-06-14 12:30 | disposition home or self-care (01) ==
PROVIDERS: Physician Assistant Medical; PCP Family Medicine; Referring Provider Internal Medicine Cardiovascular Disease; Visit Provider Internal Medicine Cardiovascular Disease
DX: I25.10 Atherosclerotic heart disease of native coronary artery without angina pectoris (principal); I50.22 Chronic systolic (congestive) heart failure; E11.9 Type 2 diabetes mellitus without complications; E78.2 Mixed hyperlipidemia; G47.33 Obstructive sleep apnea (adult) (pediatric); Z79.82 Long term (current) use of aspirin; Z79.84 Long term (current) use of oral hypoglycemic drugs; Z79.899 Other long term (current) drug therapy; Z86.16 Personal history of COVID-19; Z86.711 Personal history of pulmonary embolism
CPT/HCPCS: 36415; 80048; 85025; 85610; 85730; 93454; 99152; 99153; Q9967; C1769; C1894

== ENCOUNTER → 2024-08-29 | Outpatient (CLI) | payer MEDICARE, SELFPAY ==
--- NOTE | 2024-08-29 17:03 | RAD_ITS ---
PROCEDURE: HIP, UNI W/ PELVIS 2-3 VIEWS 08/29/2024 REASON FOR EXAM: FALL. R HIP PAIN TECHNIQUE: HIP, UNI W/ PELVIS 2-3 VIEWS COMPARISON: 06/07/2019. FINDINGS: Bilateral hip arthroplasties. Periprosthetic mildly displaced fracture adjacent to the right hip arthroplasty. Degenerative changes of the partially visualized spine. RAD/HIP, UNI W/ Pelvis 2-3 Views IMPRESSION: Right hip periprosthetic fracture. Intact left hip arthroplasty. Reading Location: [id number]
== END | disposition home or self-care (01) ==
LOC: MTRAD 17:01
PROVIDERS: PCP Family Medicine; Referring Provider Family Medicine; Visit Provider Family Medicine
DX: M25.551 Pain in right hip (principal)
CPT/HCPCS: 73502

== ENCOUNTER → 2024-09-05 | Outpatient (CLI) | payer MEDICARE, SELFPAY ==
[2024-09-05 17:11] LABS: PSA,Total- Diagnostic 7.58 ng/mL (0.00-4.00)
== END | disposition home or self-care (01) ==
LOC: LAB 14:59
PROVIDERS: PCP Family Medicine; Referring Provider Nurse Practitioner; Visit Provider Nurse Practitioner
DX: C61 Malignant neoplasm of prostate (principal)
CPT/HCPCS: 36415; 84153

== ENCOUNTER → 2024-09-18 | Outpatient (CLI) | payer MEDICARE, SELFPAY ==
--- NOTE | 2024-09-18 12:29 | CT_ITS ---
PROCEDURE: EXTREMITY LOWER WITHOUT CONTRA 09/18/2024 REASON FOR EXAM: PERIPROSTHETIC FRACTURE AROUND INTERNAL PROSTHETIC RIGHT HIP JOIN TECHNIQUE: EXTREMITY LOWER WITHOUT CONTRA Coronal and Sagittal reconstruction series were provided. CONTRAST: None One or more dose reduction techniques were used (e.g., Automated exposure control, adjustment of the mA and/or kV according to patient size, use of iterative reconstruction technique). RADIATION DOSE SUMMARY: DLP: 1227 mGycm COMPARISON: August 29, 2024 FINDINGS: There is a total hip prosthesis in position with the intact acetabular and femoral component. There is a fracture at the trochanteric region with visible callus and subacute features. There multiple corticated osteochondral fragments in the superior lateral joint space with the largest measuring 1.4 cm. There is subcutaneous edema and soft tissue calcifications noted overlying the trochanteric region with no discrete hematoma. Vascular calcifications are visible. There is no visible adenopathy. CT/Extremity Lower without Contra IMPRESSION: There is a total hip prosthesis in position with the intact acetabular and femo ral component. There is a fracture at the trochanteric region with visible callus and subacute features. There multiple corticated osteochondral fragments in the superior lateral joint space with the largest measuring 1.4 cm. There is subcutaneous edema and soft tissue calcifications noted overlying the trochanteric region with no discrete hematoma. Reading Location: [facility]
== END | disposition home or self-care (01) ==
LOC: CT 12:26
PROVIDERS: PCP Family Medicine; Referring Provider Specialist; Visit Provider Specialist
DX: M97.01XA Periprosthetic fracture around internal prosthetic right hip joint, initial encounter (principal)
CPT/HCPCS: 73700

== ENCOUNTER 2024-10-29 14:29 | Outpatient (CLI) | payer MEDICARE, SELFPAY ==
[2024-10-29 18:19] LABS: Creatinine, Urine (random) 110.00 mg/dL (39.00-259.00); Microalbumin,Random Urine 26.9 mg/L (<20 mg/L)
== END 2024-10-29 23:59 | disposition home or self-care (01) ==
LOC: LABSPEC 14:30
PROVIDERS: PCP Family Medicine; Visit Provider Family Medicine
DX: Z00.00 Encounter for general adult medical examination without abnormal findings (principal)
CPT/HCPCS: 82043; 82570

== ENCOUNTER → 2024-12-24 | Outpatient (CLI) | payer MEDICARE, SELFPAY ==
[2024-12-24 16:27] LABS: PSA,Total- Diagnostic 5.28 ng/mL (0.00-4.00)
== END | disposition home or self-care (01) ==
LOC: LAB 14:38
PROVIDERS: PCP Family Medicine; Referring Provider Nurse Practitioner; Visit Provider Nurse Practitioner
DX: C61 Malignant neoplasm of prostate (principal)
CPT/HCPCS: 36415; 84153